=== PATIENT | male | born 1955 | race Caucasian/White ===

== ENCOUNTER 2019-07-07 16:35 | Inpatient (IN) | payer BC, SELFPAY ==
[2019-07-07] VITALS (8 sets, daily range): BP systolic 147–164; BP diastolic 79–91; PULSE 67–84; RESP 14–22; TEMP 36.6–37; O2SAT 94–100; BMI 29.7
--- NOTE | ~2019-07-07 | CT_ITS ---
EXAMINATION: CT brain wo con DATE: 07/07/2019 17:40 INDICATION: Seizure. TECHNIQUE: Computed tomography (CT) of the head was performed without intravenous contrast. The dose- length product was 681.00 mGy-cm. The mA was adjusted according to patient size. Iterative reconstruc tion technique was employed. COMPARISON: CT dated 02/18/2019 FINDINGS: Mild generalized atrophy. There are scattered mild periventricular and subcortical white ma tter changes, most likely related to small vessel ischemic disease (microangiopathy). No acute intrac ranial hemorrhage, infarction, mass or mass effect. No ventriculomegaly or midline shift. Basilar cis terns are patent. There is right ethmoid and frontal sinusitis. No depressed skull fractures. No midl ine shift. Mastoids are pneumatized. There is intracranial atherosclerosis. IMPRESSION: 1. No acute intracranial abnormality. 2: Moderate sinusitis. 3: Chronic age-related findings. Reviewed, dictated and finalized at location A. ATE BANKER
--- NOTE | ~2019-07-07 | MR_ITS ---
EXAMINATION: MR brain/brain stem wo/w con EXAM DATE: 07/08/2019 12:10 INDICATION: Onset seizure. TECHNIQUE: Magnetic resonance imaging (MRI) of the brain/brain stem obtained without contrast. Sagit je T1, axial diffusion, gradient echo (T2*), T1, T2, FLAIR sequences obtained. Patient was then inj ected with 20 cc intravenous Multihance contrast. Axial and coronal postcontrast T1 weighted sequence s obtained. There is no prior study for comparison. FINDINGS: There are no areas of restricted diffusion to suggest acute infarction. There is no acute hemorrhage seen on the T2*, a hemosiderin sensitive sequence. No intraparenchymal brain mass lesion. There is mild periventricular and subcortical T2/FLAIR signal hyperintensity, nonspecific but probab ly related to small vessel ischemic disease (microangiopathy). There are no extra-axial collection s. Flow voids are seen in the cerebral arteries on the T2-weighted sequences consistent with their e xpected patency. The orbits are unremarkable. Soft tissue is unremarkable. Completely opacified rig ht frontal and ethmoid sinuses. There are no areas of abnormal enhancement on the post contrast image s. IMPRESSION: 1. No acute intracranial findings. 2. Chronic age related findings. 3. Completely opacified right frontal and ethmoid sinuses Reviewed, dictated and finalized at location B. TRICAL APPLIANCE MECHANIC
--- NOTE | ~2019-07-07 | XR_ITS ---
EXAMINATION: XR chest 1V portable 07/07/2019 17:38 INDICATION: Seizure. Possible CVA. PROCEDURE: AP portable chest COMPARISON: Comparison to multiple prior studies sequentially, with oldest reviewed study dated 12/2018. FINDINGS: The lungs are clear. The cardiomediastinal silhouette is within normal limits. There are no pleural effusions. There is no pneumothorax suspected. IMPRESSION: 1: NO ACUTE CARDIOPULMONARY DISEASE. Reviewed, dictated and finalized at location A. COORDINATOR
--- NOTE | 2019-07-07 16:56 | ED.GENADULT ---
HPI - General Adult General Chief complaint: Suspected CVA Stated complaint: ?CODE STROKE Time Seen by Provider: 07/07/19 16:59 Source: family Mode of arrival: EMS Limitations: no limitations (Hx was given by pt's ) History of Present Illness HPI narrative: The pt is a 63 y/o male who presents to the ED, via EMS, with c/o recent seizure-like activity and AMS that occurred this afternoon. The pt's states that the pt has not been feeling well for the last couple of days. Yesterday, the pt had CP which was relieved with 2 tablets of NTG. Today, the pt laid down around 14:00 because he was not feeling well again and the notes that he seemed odd and spacey at this time and that his last known nml mental status was at 10:00 this morning. After his nap, the pt still felt ill and decided he was going to come to the ED. He was sitting on the side of the bed to change his shirt before leaving and seemed slow. The pt suddenly fell back on the bed and began to have seizure like activity. The states that the pt began twitching and that his eyes and head were rolled back. She is a retired nurse and described the event as a tonic clonic seizure. The seizure lasted for a few minutes, but the pt was unresponsive for about 15 minutes after that until EMS arrived. Per pt's , the pt is still not back to his nml mental status in the ED bed. The reports syncope, chills, and diarrhea for the last 3 days, but denies sneezing, rhinorrhea, fever, cough, vomiting, nausea, poor appetite, or ABD pain. 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 The pt had a fall last November and developed a subdural hematoma. He has been on ASA since January. The pt is full code and his infrastructure manager is at [place]. His states that he has never seized before. complaint: Seizure Onset (ago): hour(s) (this afternoon) Quality: other (tonic clonic) Associated symptoms: other (syncope, chills, diarrhea) Related Data Home Medications Medication Instructions Recorded Confirmed Levemir FlexTouch U-100 Insuln 40 unit SUBCUT BID 07/07/19 07/07/19 amlodipine 10 mg PO DAILY 07/07/19 07/07/19 duloxetine 90 mg PO DAILY 07/07/19 07/07/19 lorazepam 1 mg PO BID PRN 07/07/19 07/07/19 metoprolol tartrate 50 mg PO Q12H 07/07/19 07/07/19 oxycodone 20 mg PO Q4H PRN 07/07/19 07/07/19 pravastatin 80 mg PO DAILY 07/07/19 07/07/19 gabapentin 800 mg PO TID 07/08/19 07/08/19 insulin aspart U-100 [Novolog 1 sliding scale dose SUBCUT 07/08/19 07/08/19 U-100 Insulin aspart] USEASDIRECTD Allergies Allergy/AdvReac Type Severity Reaction Status Date / Time Sulfa (Sulfonamide Allergy Intermediate RASH Verified 07/13/19 05:03 Antibiotics) tramadol Allergy Intermediate INCREASED Verified 07/13/19 05:03 HEART BEAT prochlorperazine Allergy Unknown MENTAL Verified 07/13/19 05:03 STATUS CHANGES verapamil Allergy Unknown DYSTONIC Verified 07/13/19 05:03 REACTION metoclopramide [From Reglan] Allergy Other Verified 07/13/19 05:03 promethazine [From Phenergan] Allergy Other Verified 07/13/19 05:03 rosuvastatin AdvReac Intermediate ACHY, Verified 07/13/19 05:03 FATIGUE Review of Systems Review of Systems: All systems reviewed & are unremarkable except as noted in HPI and below Constitutional: Constitutional: Reports chills, Denies fever(s) and Denies poor appetite Eyes: Eyes: Denies other (sneezing, rhinorrhea) Respiratory: Respiratory: Denies cough Gastrointestinal: Gastrointestinal: Denies abdominal pain, Reports diarrhea, Denies nausea and Denies vomiting Neurologic: Reports syncope and Reports seizure-like activity [facility] Social History Social History Social History: Code status: Full code per EMR Primary care physician: Dr. Nithin Craig Smoking status: Never smoker T
--- NOTE | 2019-07-07 17:25 | ECG_ITS ---
Measurements Intervals [place] Rate: 87 P: 159 GA: 282 QRS: 31 QRSD: 126 T: 65 QT: 417 QTc: 502 Interpretive Statements SINUS RHYTHM WITH FIRST DEGREE AV BLOCK INTRAVENTRICULAR CONDUCTION DELAY CANNOT RULE OUT SEPTAL INFARCT, AGE INDETERMINATE NONSPECIFIC ST & T-WAVE ABNORMALITY- LATERAL LEADS ABNORMAL ECG Electronically Signed On 07-07-2019 19:43:38 FACTORY MACHINE COMPUTER OPERATOR by Baljeet Borja D.O.
[2019-07-07] MEDS: ONDANSETRON INJ 4 MG/2 ML VIAL IV PUSH ×2 (17:35→18:23)
[2019-07-07] MEDS: SODIUM CHLORIDE 0.9% IV 1,000 ML 999 ML IV CONT (17:36)
[2019-07-07] MEDS: levETIRAcetam 1000MG/NACL100ML 1,000 MG/100 ML BAG 400 MG IVPB (17:38)
[2019-07-07 17:45] LABS: Basophils Absolute Auto 0.1 K/mm3 (0.0-0.1); Basophils Percent Auto 0.6 % (0.2-1.2); Eosinophils Absolute Auto 0.1 K/mm3 (0-0.3); Eosinophils Percent Auto 0.5 % (0-4.4); Hemoglobin 13.2 g/dL (14.0-18.0); Immature Granulocyte Absolute 0.03 K/mm3 (0.00-0.031); Immature Granulocyte Percent A 0.3 % (0-0.5); Lymphocytes Absolute Auto 1.68 K/mm3 (0.9-3.2); Lymphocytes Percent Auto 15.6 % (18.3-44.2); Mean Corpuscular HGB Conc 32.2 g/dl (32-36); Mean Corpuscular Hemoglobin 25.2 pg (26-34); Mean Corpuscular Volume 78.4 fl (80-100); Monocytes Absolute Auto 0.5 K/mm3 (0.1-0.6); Monocytes Percent Auto 4.7 % (2.6-8.5); Neutrophils Absolute Auto 8.5 K/mm3 (1.3-6.7); Neutrophils Percent Auto 78.3 % (45.5-73.1); Platelet Count Result 377 k/mm3 (150-375); Red Blood Count 5.23 M/mm3 (4.6-6.20); Red Cell Distribution Width 16.8 % (11.5-14.5); White Blood Count 10.8 K/mm3 (4.5-10.0)
[2019-07-07 17:57] LABS: Albumin Level 4.5 g/dL (3.5-5.1); Alkaline Phosphatase 177 U/L (38-126); Aspartate Amino Transferase 24 U/L (17-59); Bilirubin,Total 0.4 mg/dL (0.2-1.3); Blood Urea Nitrogen 13 mg/dL (9-20); Calcium 9.6 mg/dL (8.4-10.2); Carbon Dioxide 18 mmol/L (22-30); Chloride 102 mmol/L (98-107); Estimated CRCL calculation 74 ml/min; Estimated Glomerular Filt Rate 56; Glucose 342 mg/dL (75-110); INR 1.1; Potassium 3.2 mmol/L (3.4-5.0); Prothrombin Time 13.9 Seconds (11.1-14.7); Sodium 141 mmol/L (137-145)
[2019-07-07 17:58] LABS: Partial Thromboplastin Time 26.9 SECONDS (22.3-36.8)
[2019-07-07 18:04] LABS: Alanine Aminotransferase 24 U/L (4-50)
[2019-07-07 18:07] LABS: Troponin I < 0.012 ng/mL (0.000-0.034)
[2019-07-07] MEDS: HYDROMORPHONE HCL 1 MG/ML INJ 0.5 MG IV PUSH ×2 (18:23→19:59)
[2019-07-07] MEDS: POTASSIUM CHLORIDE 20 MEQ PACKET (FOR LIQUID) 40 MEQ PO (19:14)
--- NOTE | 2019-07-07 19:29 | PC.NURSE ---
PT CAME FROM EMS WITH [address] BOTH ARE INTACT WITH NO COMPLICATIONS. BOTH WERE FLUSHED WITH 10CCNS. ONE 18G IN LFA AND ONE 18G IN RFA
--- NOTE | 2019-07-07 20:31 | ADMGEN ---
This patient, Mark Anthony Westfall Jr., was admitted to Medical Room 244-. Patient/family oriented to hospital policies and general routines including ID bracelet, bed and alarms, visiting hours, pain management, procedures, bathroom and other care routines, personal items, smoking policy, room service/diet, and visiting hours. Valuables list has been completed. Information on how to activate the Rapid Response Team has been discussed. Patient/Family are encouraged to report perceived risks to care and to ask questions if they do not understand what they are told or what they should do.
[2019-07-07] MEDS: SODIUM CHLORIDE 0.9% IV 1,000 ML 125 ML IV CONT (21:20)
[2019-07-07 22:01] LABS: Glucose Point of Care 265 (65-105)
[2019-07-08] VITALS (7 sets, daily range): BP systolic 111–153; BP diastolic 55–83; PULSE 58–103; RESP 18–20; TEMP 36.7–37.4; O2SAT 95–100
[2019-07-08] MEDS: METOPROLOL TARTRATE 50 MG TAB PO ×2 (01:53→08:53)
[2019-07-08] MEDS: HYDROMORPHONE HCL 1 MG/ML INJ IV PUSH (03:47)
[2019-07-08] MEDS: SODIUM CHLORIDE 0.9% IV 1,000 ML 125 ML IV CONT (04:30)
--- NOTE | 2019-07-08 05:01 | PM.IMHP ---
H&P: HPI History of Present Illness Chief complaint: seizure Narrative: Date and time of patient contact: 07/08/2019 at 2:55 a.m. Mark Anthony Westfall Jr. is a 63 year old male with a past medical history of migraines, chronic pain syndrome, CVA x3, diabetes on insulin therapy, and prior subdural hematoma who presented to the ER after having a witnessed seizure. The patient reports to me that he had not been feeling good for couple of days. He was just feeling ?odd?. Around 1600 his helped him back to bed. He had what appeared to be tonic-clonic seizure activity. His shaking of his upper and lower extremities and not responding. Seizure lasted about 2 minutes. When EMS arrived at the scene the patient's glucose was 296. The patient's is in ICU nurse. The patient has never had seizures before but was on Keppra last year following a subdural hematoma. The patient had never had a seizure before. A code stroke was called in the field in the patient was taken directly to CT scanner. The patient had evidently had 3 days of diarrhea. He did not have any vomiting. He has not had any fevers or chills per his report. He reports a migraine that is a 7/10 in intensity at the time of my evaluation. However, the patient's TV volume was loud. The patient was also noted to be playing on his phone when I arrived to the room. He reports that his migraines usually start on the right and move over to the left side of his forehead. He states that his home oxycodone 20 mg every 4 hours usually takes care of the pain. However when it does not he needs to come in for the Dilaudid. The patient did have some difficulty with word finding thrill my interview but was otherwise a fairly reasonable historian. However he was easily distracted. On arrival to the ER the patient would respond to questions with episodes of confusion. He would have some echolalia with repeating his name. He does not remember the episodes immediately prior to his seizure or the time following his seizure. She does not remember anything until he was rolling into the ER. The patient is noted to have some scratches and abrasions to the right side of his face in his right forehead. He reports that the abrasions on the right side of his face have been there for months. He does not know where the abrasion on his forehead was a result of contact with his dog. He also has an abrasion to the right knee with evidence of scabbing. Review of Systems Review of Systems: Narrative: Except as documented in the HPI, all other systems were reviewed and are negative. [facility] Past Medical History Medical History (Updated 07/08/19 @ 05:25 by Mehnaz Cotter DO) Chronic kidney disease, stage 3 With baseline creatinine between 1.2 and 1.5 Coronary artery disease 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 as well as short-term memory loss Depression Diabetes mellitus type 2, insulin dependent Chronically uncontrolled with a hemoglobin A1c of 12.5 in September 2018 Diastolic dysfunction August 2018 with moderate concentric left ventricular hypertrophy and mild by atrial enlargement Hyperlipidemia Hypertension Obstructive sleep apnea Intolerant to CPAP therapy Peripheral neuropathy 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
[2019-07-08 06:05] LABS: Blood Urea Nitrogen 13 mg/dL (9-20); Calcium 8.4 mg/dL (8.4-10.2); Carbon Dioxide 24 mmol/L (22-30); Chloride 105 mmol/L (98-107); Estimated CRCL calculation 71 ml/min; Estimated Glomerular Filt Rate > 60; Glucose 215 mg/dL (75-110); Potassium 3.6 mmol/L (3.4-5.0); Sodium 137 mmol/L (137-145)
--- NOTE | 2019-07-08 07:30 | NEURO_ITS ---
TEST: ELECTROENCEPHALOGRAM DIAGNOSIS: NEW ONSET SEIZURE PATIENT NUMBER: [id number] EEG NUMBER: [id number] RECORDING DATE: 07/08/19 CLINICAL HISTORY: Patient reports he lost consciousness yesterday morning. Does not remember much of the episode. Had a similar episode about 5 years ago. CONDITION OF RECORDING: Awake, drowsy and sleep EEG DESCRIPTION: Basic resting occipital frequency consists of small amount of poorly organized low voltage 8-9hz alpha mixed with low voltage 15-21hz beta. During drowsiness low voltage beta activity is seen diffusely mixed with waxing and waning posterior alpha rhythms and intermittent 6-7hz theta activity. Bilateral symmetrical sleep activity is seen during sleep. Multiple muscle and movement artifacts are noted. Hyperventilation and photic stimulation were not done. Nonparoxysmal. Nonfocal. Nonlateralizing. IMPRESSION: No significant abnormalities noted. MTDD
[2019-07-08] MEDS: levETIRAcetam 500 MG TABLET PO (08:52)
[2019-07-08] MEDS: POTASSIUM CHLORIDE 20 MEQ TABLET 40 MEQ PO (08:52)
[2019-07-08] MEDS: AMLODIPINE BESYLATE 5 MG TABLET 10 MG PO (08:52)
[2019-07-08] MEDS: DULOXETINE HCL 30 MG CAPSULE.DR 90 MG PO (08:52)
[2019-07-08] MEDS: PRAVASTATIN SODIUM 20 MG TABLET 80 MG PO (08:53)
[2019-07-08] MEDS: INSULIN DETEMIR 100 UNITS/ML 40 UNITS SUB-Q (09:24)
[2019-07-08 09:33] LABS: Glucose Point of Care 190 (65-105)
--- NOTE | 2019-07-08 11:47 | CONS_ITS ---
DATE OF CONSULTATION: 07/07/2019 HISTORY OF PRESENT ILLNESS: A 63-year-old right-handed male has been admitted to the hospital through the emergency room for the complaint of weakness and seizure. He had not been feeling good for the last couple of days. Around 1600, his has been back at the bed, then she saw him having the tonic-clonic seizure-like activity, shaking upper and lower extremities, and not responding. The whole episode lasted for 2 minutes. When the EMS arrived to the scene, his blood sugar was 296. The patient has never had seizure, but was on Keppra for the last year following a subdural hematoma. He was directly taken to the CT scanner. He did give the history of having had the diarrhea for the last several days without any vomiting. He was also complaining of headache 12/16. He is known to have migraine headaches. The patient did have some difficulty in word finding initially. On arrival in the emergency room, he was able to respond to the questions though he was intermittently confused. PAST MEDICAL HISTORY: The patient has past history of chronic kidney disease, stage 3, coronary artery disease, cerebrovascular accident resulting in the right-sided weakness, mild expressive aphasia, diabetes mellitus, depression, diastolic dysfunction, hyperlipidemia, hypertension, obstructive sleep apnea, peripheral neuropathy, spinal stenosis, and supraventricular tachycardia. PAST SURGICAL HISTORY: The patient has undergone surgery for the cardiac radiofrequency ablation, coronary stenting, colonoscopy, esophagogastroduodenoscopy with documentation of the reflux esophagitis and gastritis, laparoscopy cholecystectomy, ACL repair, sinus surgery, total bilateral knee replacement and medial collateral ligament replacement as well. SOCIAL HISTORY: He was never a smoker. MEDICATIONS: At the time of admission to the hospital, he was takin. Amlodipine 10 mg daily. 2. Duloxetine 90 mg daily. 3. Insulin 40 units subcu b.i.d. 4. Lorazepam 1 mg p.o. b.i.d. p.r.n. 5. Metoprolol 50 mg q.12h. 6. Oxycodone 20 mg q.4 hours p.r.n. 7. Pravastatin 80 mg daily. ALLERGIES: HE IS ALLERGIC TO METOCLOPRAMIDE, PROCHLORPERAZINE, PROMETHAZINE, AND SULFA. PHYSICAL EXAMINATION: VITAL SIGNS: At the time of admission, his vital signs were stable with temp of 97.8, pulse 84, respiration 20, blood pressure 157/80. GENERAL: Today, he is awake, alert, cooperative, in no obvious acute distress. HEENT: Head normocephalic with no cranial bruit. Ear, nose, throat examination normal. NECK: Supple with no cervical bruit. No thyromegaly. No lymphadenopathy. HEART: Regular with no murmur. LUNGS: Clear to auscultation. ABDOMEN: Soft with no organomegaly. NEUROLOGICAL: He is awake, alert, oriented x3. Pupils round, regular. Xavier of vision full. Extraocular movements full. Face symmetrical. Tongue midline. Motor examination revealed him to have no drift of one side or other side. Tone normal. Reflexes symmetrical. Plantars downgoing. There is no evidence of gross cerebellar deficit. Evaluation up until now includes negative chest x-ray. Negative CT scan of the head. EKG with sinus rhythm with first-degree AV block and interventricular conduction delay. The patient has been started on his medication including levetiracetam 500 mg q.12 hours. Routine EEG will be obtained and further recommendations will be made accordingly. Thank you very much for letting me evaluate this patient. CLARA AVITIA M.D. FREE LANCE ARTIST FREE LANCE ARTIST D I MT: Veda
[2019-07-08 12:48] LABS: Glucose Point of Care 221 (65-105)
[2019-07-08] MEDS: INSULIN ASPART (*BKC) 100 UNITS/ML SUB-Q (12:53)
--- NOTE | 2019-07-08 13:18 | PM.DS ---
DS: Diagnosis Admitting Diagnosis Admitting Diagnosis: Unspecified convulsions Discharge Diagnosis (1) Seizure: Code(s): R56.9 - Unspecified convulsions Status: Acute Assessment and Plan: Likely as a complication of the patient's multiple prior CVAs. Patient received 1 gram of Keppra IV in the ER. 500 mg Keppra Q12 since. MRI of brain showed no acute intracranial findings. Neurology has been consulted and appreciate recommendations of Keppra 500 mg Q12 and no driving for at least 6-8 weeks Neruology has okayed patient for discharge on their end Follow up with Neurology in 6 weeks (2) Acute hypokalemia: Code(s): E87.6 - Hypokalemia Status: Acute Assessment and Plan: The patient received 40 mEq potassium chloride in the ER. K this morning is 3.6 Further follow up per PCP (3) Diabetes mellitus with hyperglycemia: Qualifiers: Diabetes mellitus terminal worker insulin use: with residential use Diabetes mellitus type: type 2 Qualified Code(s): E11.65 - Type 2 diabetes mellitus with hyperglycemia; Z79.4 - [facility] (current) use of insulin Code(s): E11.65 - Type 2 diabetes mellitus with hyperglycemia Status: Acute Assessment and Plan: Patient has chronically uncontrolled diabetes. Glucoses in the ER were 342. Repeat Accu-Chek was 265. BGL 100s-200s today. Will continue the patient's home Levemir Follow up with PCP for further management (4) Headache, migraine: Qualifiers: Intractability: not intractable Migraine type: unspecified Status migrainosus presence: without status migrainosus Qualified Code(s): G43.909 - Migraine, unspecified, not intractable, without status migrainosus Code(s): G43.909 - Migraine, unspecified, not intractable, without status migrainosus Status: Acute Assessment and Plan: Patient's migraine has subsided since. Will continue patient's home medications at discharge Follow up with PCP (5) Medication nonadherence due to psychosocial problem: Code(s): Z91.14 - Patient's other noncompliance with medication regimen Status: Acute Assessment and Plan: Prior to discharge, patient's daughter and son discussed in length with me their concern with patient obtaining gabapentin from providers other than his PCP and seemingly taking outside the recommended prescription and/or hiding the medication for later use. Discussed with patient whom he denied. Daughter concerned as they have allegedly found him wandering or lost in his vehicle. I discussed with his PCP, Dr. Craig, who also expressed concern over the same issue of alleged medication non-compliance and was already planning on discussing further at his next follow up appointment. Discussed with Dr. Milton, who recommended patient have his medication given to him by a family member so he does not have access. I had recommended this to his daughter, as well as, taking the keys from his vehicle or moving his vehicle to a new location where he cannot access it until this is discussed further with Dr. Milton and his PCP. Per Dr. Milton recommendations, he was to continue his Keppra and gabapenting and other medications, only as prescribed. At the end of the visit, daughter and patient had a verbal argument, resulting in daughter walking out of room refusing to take patient home. Per nursing, patient's had picked him up to return home. Of note, Gabapentin medication was not on patient's home medication list at admission; this has been added to his medication list prior to discharge. DS: Summary Hospital Course Reason for hospitalization: Seizure like activity Hospital Course: Patient is a 63 yo M with history of migraines, chronic pain syndrome, CVA x3, diabetes on insulin therapy, and prior subdural anton
== END 2019-07-08 15:55 | disposition home or self-care (01) | DRG 57 ==
LOC: ANHED 18:41 → ANH2MED 07-08 05:01
PROVIDERS: Physician Assistant; Admitting Provider Family Medicine; Emergency Provider Emergency Medicine; PCP Family Medicine Adolescent Medicine; Visit Provider Family Medicine
DX: I69.398 Other sequelae of cerebral infarction (principal); I69.351 Hemiplegia and hemiparesis following cerebral infarction affecting right dominant side; R56.9 Unspecified convulsions; G43.909 Migraine, unspecified, not intractable, without status migrainosus; G89.4 Chronic pain syndrome; Z79.4 Long term (current) use of insulin; N18.3 Chronic kidney disease, stage 3 (moderate); I12.9 Hypertensive chronic kidney disease with stage 1 through stage 4 chronic kidney disease, or unspecified chronic kidney disease; I25.10 Atherosclerotic heart disease of native coronary artery without angina pectoris; I69.320 Aphasia following cerebral infarction; I69.311 Memory deficit following cerebral infarction; F32.9 Major depressive disorder, single episode, unspecified; E78.5 Hyperlipidemia, unspecified; G47.33 Obstructive sleep apnea (adult) (pediatric); E11.42 Type 2 diabetes mellitus with diabetic polyneuropathy; Z79.891 Long term (current) use of opiate analgesic; M48.00 Spinal stenosis, site unspecified; Z86.010 Personal history of colon polyps; Z96.653 Presence of artificial knee joint, bilateral; Z90.49 Acquired absence of other specified parts of digestive tract; Z95.5 Presence of coronary angioplasty implant and graft; Z91.14 Patient's other noncompliance with medication regimen; E87.6 Hypokalemia; E11.65 Type 2 diabetes mellitus with hyperglycemia
CPT/HCPCS: 36415; 70450; 70553; 71045; 80048; 80053; 84484; 85025; 85610; 85730; 93005; 95816; 96361; 96374; 96375; 96376; 97165; 99285; A9270; A9577; J0131; J1170; J1815; J1953; J2405; J7030

== ENCOUNTER 2019-07-11 14:14 | Emergency (ER) | payer BC, SELFPAY ==
[2019-07-11 14:35] VITALS: BP 152/99; PULSE 68; O2SAT 100
--- NOTE | 2019-07-11 14:51 | ED.BACK ---
HPI - Back Pain/Injury General Chief Complaint: Back Pain/Injury Stated Complaint: back pain Time Seen by Provider: 07/11/19 14:44 Source: patient Mode of arrival: ambulatory Limitations: no limitations History of Present Illness HPI Narrative: A 63 y/o male presents to the ED with c/o chronic back pain for the past 10+ years. Pt states that he was seen at [facility] yesterday and his left his pain medication at the hospital. He notes that he lost Oxycodone 20mg. Pt adds that he has been prescribed Oxycodone for [address] Matthews is his PCP. He denies any fever, chills, CP, SOB, N/V, and ABD pain. MD elicited complaint: back pain (Chronic) Pertinent past history: prior back pain and other (Medication noncompliance) Onset (ago): year(s) (10+) Timing: constant Severity: similar to previous episodes Context: other (Medication noncompliance) Associated symptoms: denies other symptoms Related Data Allergies Allergy/AdvReac Type Severity Reaction Status Date / Time Sulfa (Sulfonamide Allergy Intermediate RASH Verified 07/11/19 14:23 Antibiotics) tramadol Allergy Intermediate INCREASED Verified 07/11/19 14:23 HEART BEAT prochlorperazine Allergy Unknown MENTAL Verified 07/11/19 14:23 STATUS CHANGES verapamil Allergy Unknown DYSTONIC Verified 07/11/19 14:23 REACTION rosuvastatin AdvReac Intermediate ACHY, Verified 07/11/19 14:23 FATIGUE METOCLOPRAMIDE HCL Allergy Unknown MENTAL Uncoded 07/11/19 14:23 STATUES CHANGES Review of Systems Review of Systems: All systems reviewed & are unremarkable except as noted in HPI and below Constitutional: Constitutional: Denies chills and Denies fever(s) Cardiovascular: Cardiovascular: Denies chest pain Respiratory: Respiratory: Denies dyspnea Gastrointestinal: Gastrointestinal: Denies abdominal pain, Denies nausea and Denies vomiting Musculoskeletal: Musculoskeletal: Reports back pain (Chronic) [facility] Past Medical History Medical History (Updated 07/11/19 @ 15:21 by Francesca Correia MD) Anemia Anxiety Arthritis Asthma Back fracture Bulging discs CAD (coronary artery disease) CHF (congestive heart failure) Chronic back pain CVA (cerebral vascular accident) Dementia Depression Diabetes GERD (gastroesophageal reflux disease) Heart attack History of angina History of blood transfusion HTN (hypertension) Hyperlipidemia Migraine Peripheral neuropathy Pneumonia PVD (peripheral vascular disease) Renal disease Seasonal allergies Shingles Sleep apnea Spinal stenosis Staph infection Surgical History Surgical History (Updated 07/11/19 @ 15:01 by Keisha Vann) H/O excision of ganglion cyst H/O nasal polypectomy H/O prior ablation treatment History of arthroscopic knee surgery Bilateral History of cardiac catheterization History of coronary artery stent placement History of tonsillectomy Social History Social History (Updated 07/11/19 @ 15:16 by Keisha Vann) Smoking status: Former smoker Tobacco type: cigars Second hand tobacco smoke exposure: Yes Gender identity (if verbalized by the patient): Male Exam Narrative: Exam Narrative: General appearance: Well-developed, well-nourished, no family member at the bedside patient was able to go to the bathroom and to come back to the room without commissary assistant. Skin: Normal color Head: Normocephalic, nontraumatic Eyes: Clear conjunctiva ENT: Oropharynx normal, ears normal, nose normal Neck: Supple, nontender Chest and respiratory: Airway patent, no respiratory distress, no accessory muscle use Heart: Regular rate/rhythm Abdomen: Soft, nontender, no organomegaly, quiet bowel sounds Vascular: Normal peripheral pulses, normal capillary refill. Musculoskeletal: Limited range of motion across lumbar area, diffuse mild tenderness. Neurologic: Alert and oriented ?3, STRADDLE BUGGY OPERATOR is normal as tested, no gross motor deficit
[2019-07-11] MEDS: HYDROMORPHONE HCL 1 MG/ML INJ 2 MG IM (15:22)
[2019-07-11] MEDS: ONDANSETRON HCL ODT 4 MG TABLET PO (15:22)
[2019-07-11] MEDS: HYDROMORPHONE HCL 1 MG/ML INJ IM (15:57)
== END 2019-07-11 16:02 | disposition home or self-care (01) ==
PROVIDERS: Emergency Provider Emergency Medicine; PCP Family Medicine Adolescent Medicine
DX: M54.5 Low back pain (principal); G89.29 Other chronic pain; M19.90 Unspecified osteoarthritis, unspecified site; J45.909 Unspecified asthma, uncomplicated; I25.10 Atherosclerotic heart disease of native coronary artery without angina pectoris; Z86.73 Personal history of transient ischemic attack (TIA), and cerebral infarction without residual deficits; F03.90 Unspecified dementia, unspecified severity, without behavioral disturbance, psychotic disturbance, mood disturbance, and anxiety; E11.42 Type 2 diabetes mellitus with diabetic polyneuropathy; K21.9 Gastro-esophageal reflux disease without esophagitis; I10 Essential (primary) hypertension; E78.5 Hyperlipidemia, unspecified; E11.51 Type 2 diabetes mellitus with diabetic peripheral angiopathy without gangrene; G47.30 Sleep apnea, unspecified; N28.9 Disorder of kidney and ureter, unspecified; Z95.5 Presence of coronary angioplasty implant and graft; Z87.891 Personal history of nicotine dependence
CPT/HCPCS: 96372; 99284; A9270; J1170

== ENCOUNTER 2019-07-13 04:47 | Emergency (ER) | payer BC, SELFPAY ==
[2019-07-13 04:56] VITALS: PULSE 100; RESP 18; TEMP 36.4; O2SAT 100
--- NOTE | 2019-07-13 05:12 | ED.BACK ---
HPI - Back Pain/Injury General Chief Complaint: Back Pain/Injury Stated Complaint: back pain Time Seen by Provider: 07/13/19 05:06 History of Present Illness HPI Narrative: He reports chronic pain in his lower back. Worse because he lost his pain medications. No new trauma. I personally have seen this patient a number of times. He has chronic pain and drug seeking behavior. He has had multiple prior visits after taking too much of his pain medications. Related Data Home Medications Medication Instructions Recorded Confirmed Levemir FlexTouch U-100 Insuln 40 unit SUBCUT BID 07/07/19 07/07/19 amlodipine 10 mg PO DAILY 07/07/19 07/07/19 duloxetine 90 mg PO DAILY 07/07/19 07/07/19 lorazepam 1 mg PO BID PRN 07/07/19 07/07/19 metoprolol tartrate 50 mg PO Q12H 07/07/19 07/07/19 oxycodone 20 mg PO Q4H PRN 07/07/19 07/07/19 pravastatin 80 mg PO DAILY 07/07/19 07/07/19 gabapentin 800 mg PO TID 07/08/19 07/08/19 insulin aspart U-100 [Novolog 1 sliding scale dose SUBCUT 07/08/19 07/08/19 U-100 Insulin aspart] USEASDIRECTD Allergies Allergy/AdvReac Type Severity Reaction Status Date / Time Sulfa (Sulfonamide Allergy Intermediate RASH Verified 07/13/19 05:03 Antibiotics) tramadol Allergy Intermediate INCREASED Verified 07/13/19 05:03 HEART BEAT prochlorperazine Allergy Unknown MENTAL Verified 07/13/19 05:03 STATUS CHANGES verapamil Allergy Unknown DYSTONIC Verified 07/13/19 05:03 REACTION metoclopramide [From Reglan] Allergy Other Verified 07/13/19 05:03 promethazine [From Phenergan] Allergy Other Verified 07/13/19 05:03 rosuvastatin AdvReac Intermediate ACHY, Verified 07/13/19 05:03 FATIGUE Review of Systems Review of Systems: All systems reviewed & are unremarkable except as noted in HPI and below ROS unobtainable: other (limited due to cooperation) Constitutional: Constitutional: Denies fever(s) Cardiovascular: Cardiovascular: Denies chest pain Gastrointestinal: Gastrointestinal: Denies vomiting Musculoskeletal: Musculoskeletal: Reports back pain Neurologic: Reports weakness PMFSH Past Medical History Medical History Anemia Anxiety Arthritis Asthma Back fracture Bulging discs CAD (coronary artery disease) CHF (congestive heart failure) Chronic back pain Chronic kidney disease, stage 3 With baseline creatinine between 1.2 and 1.5 Coronary artery disease CVA (cerebral vascular accident) 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rtension Migraine Obstructive sleep apnea Intolerant to CPAP therapy Peripheral neuropathy Peripheral neuropathy Pneumonia 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f left knee MRSA September 2018 Shingles Sleep apnea Spinal stenosis Spinal stenosis With history of herniated discs and stress fractures on chronic narcotic therapy Staph infection SVT (supraventricular tachycardia) With history of cardiac ablation in 2001 Surgical History Surgical History H/O cardiac radiofrequency ablation for SVT H/O excision of ganglion cyst H/O heart artery stent Placed in 2006 H/O nasal polypectomy H/O prior ablation treatment History of arthroscopic knee surgery Bilateral History of cardiac catheterization Hist
== END 2019-07-13 05:35 | disposition home or self-care (01) ==
LOC: ANHED 05:18
PROVIDERS: Emergency Provider Emergency Medicine
DX: M54.5 Low back pain (principal); D64.9 Anemia, unspecified; F41.9 Anxiety disorder, unspecified; M19.90 Unspecified osteoarthritis, unspecified site; J45.909 Unspecified asthma, uncomplicated; I25.10 Atherosclerotic heart disease of native coronary artery without angina pectoris; I50.9 Heart failure, unspecified; I13.10 Hypertensive heart and chronic kidney disease without heart failure, with stage 1 through stage 4 chronic kidney disease, or unspecified chronic kidney disease; N18.3 Chronic kidney disease, stage 3 (moderate); E11.22 Type 2 diabetes mellitus with diabetic chronic kidney disease; Z79.4 Long term (current) use of insulin; F32.9 Major depressive disorder, single episode, unspecified; K21.9 Gastro-esophageal reflux disease without esophagitis; G47.30 Sleep apnea, unspecified; E11.42 Type 2 diabetes mellitus with diabetic polyneuropathy
CPT/HCPCS: 99281

== ENCOUNTER 2019-08-14 08:06 | Inpatient (IN) | payer BC, SELFPAY ==
--- NOTE | ~2019-08-14 | CT_ITS ---
EXAMINATION: CT abdomen pelvis w con DATE: 08/14/2019 10:13 INDICATION: Abdomen pain. TECHNIQUE: Computed tomography (CT) of the abdomen and pelvis was performed with 100 cc Omnipaque 350 intravenous contrast. The dose-length product was 1056.16 mGy-cm. Automated exposure control and ite rative reconstruction technique were employed. COMPARISON: CT dated 10/31/2018 FINDINGS: Lung bases unremarkable. Heart size normal. No pleural or pericardial effusion. There is acute uncomplicated pancreatitis. Status post cholecystectomy. The liver, spleen, adrenal gl ands and kidneys are unremarkable. Bowel pattern is nonobstructive. No abnormal pelvic masses or flui d collections. Mild bladder wall thickening. Prominent prostate gland. No free air or free fluid. No significant vascular abnormality. Retroaortic left renal vein, normal variant. Advanced lumbar spondy losis. No acute osseous abnormality. IMPRESSION: 1. Acute uncomplicated pancreatitis. 2: Chronic bladder wall thickening, suspicious for cystitis. Reviewed, dictated and finalized at location A. R TRACER
--- NOTE | ~2019-08-14 | MR_ITS ---
EXAMINATION: MR abdomen wo con DATE: 08/16/2019 12:32 INDICATION: Acute pancreatitis. Abnormal liver function tests. TECHNIQUE: Magnetic resonance imaging (MRI) of the abdomen was performed without intravenous contrast . Sequences included coronal T2-weighted FS FSE, coronal and axial FS FIESTA, axial T2-weighted FSE, coronal LAVA-flex, axial STIR FSE, axial DWI, axial dual-echo T1-weighted FSPGR, and axial LAVA. COMPARISON: CT abdomen and pelvis 08/14/2019 FINDINGS: There is mild intrahepatic biliary duct dilatation, likely secondary to cholecystectomy. The common d uct is normal and measures 5 mm. There is fat stranding around the pancreas. There is a 5 mm cyst in the spleen. The adrenal glands and kidneys are normal. There are no dilated loops of bowel. There are no pathologically enlarged lymph nodes. There is no free intraperitoneal fluid. IMPRESSION: 1. Acute interstitial pancreatitis. Reviewed, dictated and finalized at location A.
--- NOTE | ~2019-08-14 | XR_ITS ---
EXAMINATION: XR chest 2V 08/14/2019 09:35 INDICATION: Chest pain PROCEDURE: AP and lateral views of the chest COMPARISON: 07/07/2019 FINDINGS: The lungs are clear. The cardiomediastinal silhouette is within normal limits. There are no pleural effusions. There is no pneumothorax suspected. IMPRESSION: 1: NO ACUTE CARDIOPULMONARY DISEASE. Reviewed, dictated and finalized at location A. ER MEAL
--- NOTE | 2019-08-14 08:20 | ECG_ITS ---
Measurements Intervals [place] Rate: 98 P: [place]: 0 QRS: -11 QRSD: 126 T: 79 QT: 375 QTc: 480 Interpretive Statements SINUS RHYTHM WITH FIRST DEGREE AV BLOCK BORDERLINE ST-T WAVE ABNORMALITY- LATERAL LEADS BASELINE ARTIFACT- I, II, AVR, AVL, AVF, V1-V2 ABNORMAL ECG Electronically Signed On 08-14-2019 8:44:24 MANAGER MEDIA RELATIONS by Baljeet Borja D.O.
[2019-08-14 08:24] VITALS: BP 196/105; PULSE 100; RESP 18; TEMP 36.8; O2SAT 100
[2019-08-14 08:35] LABS: Basophils Absolute Auto 0.1 K/mm3 (0.0-0.1); Basophils Percent Auto 0.5 % (0.2-1.2); Eosinophils Absolute Auto 0.2 K/mm3 (0-0.3); Hematocrit 40.2 % (42.0-52.0); Hemoglobin 12.9 g/dL (14.0-18.0); Immature Granulocyte Absolute 0.03 K/mm3 (0.00-0.031); Immature Granulocyte Percent A 0.3 % (0-0.5); Lymphocytes Percent Auto 16.2 % (18.3-44.2); Mean Corpuscular HGB Conc 32.1 g/dl (32-36); Mean Corpuscular Hemoglobin 25.9 pg (26-34); Mean Corpuscular Volume 80.6 fl (80-100); Monocytes Percent Auto 9.4 % (2.6-8.5); Neutrophils Absolute Auto 7.5 K/mm3 (1.3-6.7); Neutrophils Percent Auto 71.6 % (45.5-73.1); Platelet Count Result 405 k/mm3 (150-375); Red Blood Count 4.99 M/mm3 (4.6-6.20); Red Cell Distribution Width 15.8 % (11.5-14.5); White Blood Count 10.5 K/mm3 (4.5-10.0)
[2019-08-14 08:51] LABS: Blood Urea Nitrogen 20 mg/dL (9-20); Calcium 9.7 mg/dL (8.4-10.2); Carbon Dioxide 30 mmol/L (22-30); Chloride 97 mmol/L (98-107); Estimated CRCL calculation 66 ml/min; Estimated Glomerular Filt Rate 56; Glucose 416 mg/dL (75-110); INR 1.1; Prothrombin Time 14.2 Seconds (11.1-14.7); Sodium 136 mmol/L (137-145)
[2019-08-14 08:52] LABS: Partial Thromboplastin Time 38.3 SECONDS (22.3-36.8)
[2019-08-14 09:02] LABS: Troponin I < 0.012 ng/mL (0.000-0.034)
--- NOTE | 2019-08-14 09:03 | ED.ABDPAIN ---
HPI - Abdominal Pain General Chief Complaint: Abdominal Pain Stated Complaint: chest pain Time Seen by Provider: 08/14/19 08:58 Source: patient and RN notes reviewed Mode of arrival: ambulatory Limitations: no limitations History of Present Illness HPI narrative: Pt is a 63 y/o male who presents to the ED with c/o epigastric pain starting 2 days ago. He notes that his pain initially felt like indigestion, but states that his pain has persisted for the past 2 days. Pt describes his pain as an ache, and notes that his pain radiates into his LUQ and intermittently into his back. He currently rates his pain at 7/10. Pt also reports diarrhea, foul-smelling urine, and a recent cough, but denies any vomiting, fever, or other symptoms. He notes that he has had similar pain accompanying a previous episode of cholecystitis roughly 1 year ago. Pt states that he received a cholecystectomy at that time. He notes that he has been taking Acetaminophen for his pain. MD elicited complaint: abdominal pain Onset (ago): day(s) (2) Pain Consistency: constant Location: epigastric Pain scale (0-10): 7 Quality: aching Radiation: LUQ and back Associated symptoms: diarrhea and other (foul-smelling urine; cough) Treatments prior to arrival: other (Acetaminophen) Related Data Home Medications Medication Instructions Recorded Confirmed Levemir FlexTouch U-100 Insuln 40 unit SUBCUT BID 07/07/19 07/07/19 amlodipine 10 mg PO DAILY 07/07/19 07/07/19 duloxetine 90 mg PO DAILY 07/07/19 07/07/19 lorazepam 1 mg PO BID PRN 07/07/19 07/07/19 metoprolol tartrate 50 mg PO Q12H 07/07/19 07/07/19 oxycodone 20 mg PO Q4H PRN 07/07/19 07/07/19 gabapentin 800 mg PO TID 07/08/19 07/08/19 insulin aspart U-100 [Novolog 1 sliding scale dose SUBCUT 07/08/19 07/08/19 U-100 Insulin aspart] USEASDIRECTD morphine 60 mg PO BID PRN 08/14/19 oxycodone-acetaminophen 1 tablet PO Q6H PRN 08/14/19 Allergies Allergy/AdvReac Type Severity Reaction Status Date / Time Sulfa (Sulfonamide Allergy Intermediate RASH Verified 08/14/19 08:27 Antibiotics) tramadol Allergy Intermediate INCREASED Verified 08/14/19 08:27 HEART BEAT prochlorperazine Allergy Unknown MENTAL Verified 08/14/19 08:27 STATUS CHANGES verapamil Allergy Unknown DYSTONIC Verified 08/14/19 08:27 REACTION metoclopramide [From Reglan] Allergy Other Verified 08/14/19 08:27 promethazine [From Phenergan] Allergy Other Verified 08/14/19 08:27 rosuvastatin AdvReac Intermediate ACHY, Verified 08/14/19 08:27 FATIGUE Review of Systems Review of Systems: All systems reviewed & are unremarkable except as noted in HPI and below Constitutional: Constitutional: Denies chills, Denies fever(s), Denies headache(s) and Denies weakness Respiratory: Respiratory: Reports cough Gastrointestinal: Gastrointestinal: Reports abdominal pain (epigastric pain radiating into LUQ and back), Reports diarrhea and Denies vomiting Genitourinary: Genitourinary: Reports other (foul-smelling urine) [facility] Past Medical History Medical History Anemia Anxiety Arthritis Asthma Back fracture Bulging discs CAD (coronary artery disease) CHF (congestive heart failure) Chronic back pain Chronic kidney disease, stage 3 With baseline creatinine between 1.2 and 1.5 Coronary artery disease CVA (cerebral vascular accident) 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
[2019-08-14 09:45] LABS: Lipase 667 U/L (23-300)
[2019-08-14] MEDS: POTASSIUM CHLORIDE 20 MEQ TABLET 40 MEQ PO (10:20)
[2019-08-14] MEDS: INSULIN HUMAN REGULAR (*BKC) 100 UNITS/ML 10 UNITS IV PUSH (10:24)
[2019-08-14 11:15] LABS: Alanine Aminotransferase 56 U/L (4-50); Albumin Level 4.1 g/dL (3.5-5.1); Alkaline Phosphatase 174 U/L (38-126); Aspartate Amino Transferase 63 U/L (17-59); Bilirubin,Total 0.7 mg/dL (0.2-1.3)
[2019-08-14 11:39] LABS: Troponin I < 0.012 ng/mL (0.000-0.034)
[2019-08-14 12:29] LABS: Glucose Point of Care 201 (65-105)
[2019-08-14] MEDS: MORPHINE SULFATE 4 MG/ML INJ IV PUSH (13:37)
[2019-08-14 14:00] VITALS: BP 176/90; PULSE 86; RESP 18; TEMP 36.9; O2SAT 100
[2019-08-14 15:30] LABS: Troponin I < 0.012 ng/mL (0.000-0.034)
[2019-08-14 16:00] VITALS: BMI 25.1
--- NOTE | 2019-08-14 16:07 | ADMGEN ---
This patient, Mark Anthony Westfall Jr., was admitted to [facility] Room 309-01. Patient/family oriented to hospital policies and general routines including ID bracelet, bed and alarms, visiting hours, pain management, procedures, bathroom and other care routines, personal items, smoking policy, room service/diet, and visiting hours. Valuables list has been completed. Information on how to activate the Rapid Response Team has been discussed. Patient/Family are encouraged to report perceived risks to care and to ask questions if they do not understand what they are told or what they should do.
--- NOTE | 2019-08-14 16:18 | PM.IMHP ---
H&P: HPI History of Present Illness Chief complaint: pancreatitis Narrative: Mark Anthony Westfall Jr. is a 63 year old male with a past medical history chronic back pain with herniated disks, and chronically on pain medication,DM on insulin, CAD, CVAX3, hemotoma, patient patient was diagnosed with seizure, had a cholecystectomy in November of 2018, present at the with complaint epigastric pain 2 days nausea diarrhea denies any vomiting fever or chills though he felt cold, patient denies any chest pain palpitation dizziness patient had a CT scan of the abdomen showed patient has uncomplicated acute pancreatitis, currently patient pain is persisting feels a bit nauseated and no vomiting, plan is to the patient NPO gently hydrate the patient and provide the pain management Review of Systems Review of Systems: All systems reviewed & are unremarkable except as noted in HPI and below PMFSH Past Medical History Medical History Anemia Anxiety Arthritis Asthma Back fracture Bulging discs CAD (coronary artery disease) CHF (congestive heart failure) Chronic back pain Chronic kidney disease, stage 3 With baseline creatinine between 1.2 and 1.5 Coronary artery disease CVA (cerebral vascular accident) 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rtension Migraine Obstructive sleep apnea Intolerant to CPAP therapy Peripheral neuropathy Peripheral neuropathy Pneumonia 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f left knee MRSA September 2018 Shingles Sleep apnea Spinal stenosis Spinal stenosis With history of herniated discs and stress fractures on chronic narcotic therapy Staph infection SVT (supraventricular tachycardia) With history of cardiac ablation in 2001 Surgical History Surgical History H/O cardiac radiofrequency ablation for SVT H/O excision of ganglion cyst H/O heart artery stent Placed in 2006 H/O nasal polypectomy H/O prior ablation treatment History of arthroscopic knee surgery Bilateral History of cardiac catheterization History of cardiac catheterization 2014 complicated by prizmetal's angina History of colonoscopy with polypectomy 2016 demonstrating internal hemorrhoids, external hemorrhoids and transverse colon polyp status post polypectomy History of coronary artery stent placement History of esophagogastroduodenoscopy November 2016 demonstrating reflux esophagitis and gastritis History of laparoscopic cholecystectomy October 2018 History of repair of ACL History of sinus surgery Anterior ethmoid, right maxillary and frontal sinus surgery 2012 History of tonsillectomy History of total bilateral knee replacement Performed at the [facility] with multiple revisions to his right knee with his most recent left total knee arthroplasty performed by Dr. Diane in [facility] Status post repair of medial collateral ligament Family History Family History (Updated 08/14/19 @ 16:09 by Kevin Can RN) Mother Breast cancer Hypertension Dementia Sibling Asthma Brother Hypertension Father Dementia Lung cancer Hypertension Social History Social History Social History: Code status: Full code per E
[2019-08-14] MEDS: SODIUM CHLORIDE 0.9% IV 1,000 ML 125 ML IV CONT (16:26)
[2019-08-14] MEDS: HYDROMORPHONE HCL 1 MG/ML INJ IV PUSH ×3 (16:31→23:32)
[2019-08-14 16:32] LABS: Magnesium 1.8 mg/dL (1.6-2.3)
[2019-08-14 18:38] LABS: Glucose Point of Care 232 (65-105)
[2019-08-14] MEDS: INSULIN ASPART (*BKC) 100 UNITS/ML SUB-Q (19:45)
[2019-08-14] MEDS: levETIRAcetam 500MG/NACL 100ML 500 MG/100 ML BAG 400 MG IVPB (20:00)
[2019-08-14 20:15] VITALS: PULSE 86; RESP 18; O2SAT 100
[2019-08-14 21:00] VITALS: BP 190/105; PULSE 102; RESP 18; TEMP 37; O2SAT 100
[2019-08-14 23:31] VITALS: BP 198/96
[2019-08-15 00:35] LABS: Glucose Point of Care 200 (65-105)
[2019-08-15] MEDS: SODIUM CHLORIDE 0.9% IV 1,000 ML 125 ML IV CONT ×2 (00:54→11:50)
--- NOTE | 2019-08-15 01:41 | PC.NURSE ---
Daylight Savings Time For Daylight Savings Time Ending in the Fall - Clocks are moved back. For Daylight Savings Time Beginning in the Spring - Clocks are moved ahead. For [facility], the time of change occurs at 0200 hrs. Time is taken from the director internal communications. This entry on the patient's chart recognizes the change in time reflected during documentation. Example: 2 entries for vital signs may be charted for 0200 hrs.
[2019-08-15] MEDS: HYDROMORPHONE HCL 1 MG/ML INJ IV PUSH ×7 (04:33→23:31)
[2019-08-15 06:00] VITALS: BP 196/89; PULSE 90; RESP 18; TEMP 36.8; O2SAT 100
[2019-08-15 06:28] LABS: Hematocrit 38.1 % (42.0-52.0); Hemoglobin 12.3 g/dL (14.0-18.0); Mean Corpuscular HGB Conc 32.3 g/dl (32-36); Mean Corpuscular Hemoglobin 25.9 pg (26-34); Mean Corpuscular Volume 80.2 fl (80-100); Mean Platelet Volume 9.2 fl (7.4-10.4); Platelet Count Result 420 k/mm3 (150-375); Red Blood Count 4.75 M/mm3 (4.6-6.20); Red Cell Distribution Width 15.6 % (11.5-14.5); White Blood Count 10.7 K/mm3 (4.5-10.0)
[2019-08-15 06:44] LABS: Alanine Aminotransferase 44 U/L (4-50); Albumin Level 3.8 g/dL (3.5-5.1); Alkaline Phosphatase 157 U/L (38-126); Aspartate Amino Transferase 38 U/L (17-59); Bilirubin,Total 0.6 mg/dL (0.2-1.3); Blood Urea Nitrogen 15 mg/dL (9-20); Carbon Dioxide 25 mmol/L (22-30); Chloride 102 mmol/L (98-107); Estimated CRCL calculation 84 ml/min; Estimated Glomerular Filt Rate > 60; Glucose 235 mg/dL (75-110); Lipase 699 U/L (23-300); Potassium 3.7 mmol/L (3.4-5.0); Sodium 137 mmol/L (137-145)
[2019-08-15 06:47] LABS: Glucose Point of Care 224 (65-105)
--- NOTE | 2019-08-15 08:51 | PC.NURSE ---
Patient refuses bed alarm. Patient has been educated on safety and the risks of having bed alarm off. Patient has been instructed to call for assistance when he needs to get up.
[2019-08-15] MEDS: levETIRAcetam 500MG/NACL 100ML 500 MG/100 ML BAG 400 MG IVPB ×2 (09:13→20:24)
[2019-08-15 09:54] LABS: Glucose Point of Care 193 (65-105)
[2019-08-15 10:18] VITALS: O2SAT 97
--- NOTE | 2019-08-15 12:27 | WPDGICN ---
Assessment and Plan Assessment and plan (1) Acute pancreatitis: Qualifiers: Acute pancreatitis complication: unspecified Pancreatitis type: unspecified pancreatitis type Qualified Code(s): K85.90 - Acute pancreatitis without necrosis or infection, unspecified Code(s): K85.90 - Acute pancreatitis without necrosis or infection, unspecified Status: Acute Assessment and Plan: probably biliary related, also could be from diabetes. Will get MRCP to assess biliary tree and pancrease, ok to start CL diet and continue to monitor, supportive care, pain control with analgesia. (2) Diabetes mellitus with hyperglycemia: Qualifiers: Diabetes mellitus usp insulin use: with watermelon harvesting supervisor use Diabetes mellitus type: type 2 Qualified Code(s): E11.65 - Type 2 diabetes mellitus with hyperglycemia; Z79.4 - watermelon harvesting supervisor (current) use of insulin Code(s): E11.65 - Type 2 diabetes mellitus with hyperglycemia Status: Acute Assessment and Plan: on insulin by primary team (3) Elevated liver enzymes: Code(s): R74.8 - Abnormal levels of other serum enzymes Status: Acute Assessment and Plan: no etoh use, trending down, only had mild elevation and normal bilirubin will check hepatitis panel (4) Hypokalemia: Code(s): E87.6 - Hypokalemia Status: Acute Assessment and Plan: treated (5) Nausea: Code(s): R11.0 - Nausea Status: Acute Assessment and Plan: will monitor, from pancreatitis but he complains for several days, may need EGD if persistent. GI Consult Note Consult date/time: 08/15/19 12:27 Reason for consult: pancreatitis HPI: Mark Anthony Westfall Jr. is a 63 year old male with past medical history of diabetes on insulin, chronic back pain, CAD, CVA, cholecystectomy in November of 2018 with pancreatitis here admitted with several days of decrease appetite but new onset of pain at the epigastric area for 2-3 days with radiation to his back along with nausea without vomiting, pain moderate intensity. This was similar to previous GB attack . He had mild elevation of liver enzymes and blood work consistent with pancreatitis, CT scan of the abdomen showed uncomplicated acute pancreatitis. Denies ETOH use, triglycerides normal. He is still nauseous, pain better with iv dilaudid. Review of Systems Constitutional: Constitutional: Denies headache(s) and Denies weakness Eyes: Eyes: Denies blurry vision ENT: Reports Normal hearing present, Denies headache(s) and Denies neck pain Cardiovascular: Cardiovascular: Denies chest pain and Denies dyspnea Respiratory: Respiratory: Denies dyspnea Gastrointestinal: Gastrointestinal: Reports abdominal pain, Denies melena and Reports nausea Genitourinary: Genitourinary: Denies dysuria Musculoskeletal: Musculoskeletal: Denies neck pain Integumentary/Breasts: Skin/Breast: Denies dry skin Neurologic: Reports Normal hearing present, Denies headache(s) and Denies weakness Psychiatric: Psychiatric: Denies anxiety Endocrine: Endocrine: Denies change in body appearance Hematologic/Lymphatic: Hematologic/Lymphatic: Denies easy bleeding Allergic/Immunologic: Allergic/Immunologic: Denies urticaria PMFSH Past Medical History Medical History (Updated 08/15/19 @ 12:34 by Rito Harmon MD) Anemia Anxiety Arthritis Asthma Back fracture Bulging discs CAD (coronary artery disease) CHF (congestive heart failure) Chronic back pain Chronic kidney disease, stage 3 With baseline creatinine between 1.2 and 1.5 Coronary artery disease CVA (cerebral vascular accident) 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
[2019-08-15] MEDS: INSULIN ASPART (*BKC) 100 UNITS/ML SUB-Q ×2 (13:13→17:40)
[2019-08-15 13:24] LABS: Glucose Point of Care 206 (65-105)
--- NOTE | 2019-08-15 13:45 | PM.IMPN ---
Progress Note: A&P Assessment and Plan (1) Acute pancreatitis: Qualifiers: Acute pancreatitis complication: unspecified Pancreatitis type: unspecified pancreatitis type Qualified Code(s): K85.90 - Acute pancreatitis without necrosis or infection, unspecified Code(s): K85.90 - Acute pancreatitis without necrosis or infection, unspecified Status: Acute Assessment and Plan: 08/15/19 13:45 Mark Anthony Westfall Jr. is a 63 year old male with a past medical history chronic back pain with herniated disks, and chronically on pain medication,DM on insulin, CAD, CVAX3, hemotoma, patient patient was diagnosed with seizure, had a cholecystectomy in November of 2018, present at the with complaint epigastric pain 2 days nausea diarrhea denies any vomiting fever or chills though he felt cold, patient denies any chest pain palpitation dizziness patient had a CT scan of the abdomen showed patient has uncomplicated acute pancreatitis, currently patient pain is persisting feels a bit nauseated and no vomiting, plan is to the patient NPO gently hydrate the patient and provide the pain management, Today patient stats pain is stable and feel little nauseated, will like to try something clear to eat, denies any fever or chills patient's lipase is a stable at this 669. Will start the patient on clear liquid and monitor advanced his diet as tolerated (2) Hypokalemia: Code(s): E87.6 - Hypokalemia Status: Acute Assessment and Plan: Most likely secondary to poor p.o. intake will monitor and supplement (3) Seizure: Code(s): R56.9 - Unspecified convulsions Status: Acute Assessment and Plan: Will resume home medication will switch Keppra to IV while patient is NPO (4) Diabetes mellitus with hyperglycemia: Qualifiers: Diabetes mellitus correction insulin use: with termination clerk use Diabetes mellitus type: type 2 Qualified Code(s): E11.65 - Type 2 diabetes mellitus with hyperglycemia; Z79.4 - jail (current) use of insulin Code(s): E11.65 - Type 2 diabetes mellitus with hyperglycemia Status: Acute Assessment and Plan: Patient is on clear liquids will start the patient on sliding scale and monitor Subjective Date/time seen: 08/15/19 13:45 Mark Anthony Westfall Jr. is a 63 year old male with a past medical history chronic back pain with herniated disks, and chronically on pain medication,DM on insulin, CAD, CVAX3, hemotoma, patient patient was diagnosed with seizure, had a cholecystectomy in November of 2018, present at the with complaint epigastric pain 2 days nausea diarrhea denies any vomiting fever or chills though he felt cold, patient denies any chest pain palpitation dizziness patient had a CT scan of the abdomen showed patient has uncomplicated acute pancreatitis, currently patient pain is persisting feels a bit nauseated and no vomiting, plan is to the patient NPO gently hydrate the patient and provide the pain management, Today patient stats pain is stable and feel little nauseated, will like to try something clear to eat, denies any fever or chills patient's lipase is a stable at this 669. Review of Systems Review of Systems: All systems reviewed & are unremarkable except as noted in HPI and below Exam Const: General: comfortable and no acute distress HENMT: General nose exam: Normal nares present Mouth: Yes moist mucous membranes Eyes: General: appearance normal, both eyes and all related structures Sclera: sclerae normal Neck: Neck: supple Resp: Effort & Inspection: normal respiratory effort Auscultation: clear to auscultation bilaterally Cardio: Rate: regular rate Rhythm: regular rhythm GI: Other: Diffusely tender Skin: General skin exam: normal color and no rashes or lesions noted Neuro: Speech: normal speech Sensory Exam: normal sensation Extrem: General: normal to inspection Psych: Affect: Anxious affect present Objective Data Vital Signs Vital Sign
[2019-08-15 14:00] VITALS: BP 163/83; PULSE 92; RESP 20; TEMP 36.8; O2SAT 98
[2019-08-15 17:41] LABS: Glucose Point of Care 322 (65-105)
[2019-08-15 22:00] VITALS: BP 169/100; PULSE 85; RESP 18; TEMP 36.9; O2SAT 100
[2019-08-16 00:45] VITALS: O2SAT 98
[2019-08-16] MEDS: HYDROMORPHONE HCL 1 MG/ML INJ IV PUSH ×7 (02:25→23:51)
[2019-08-16 02:26] VITALS: PULSE 88
[2019-08-16] MEDS: METOPROLOL TARTRATE 50 MG TAB PO ×3 (02:26→20:38)
[2019-08-16] MEDS: SODIUM CHLORIDE 0.9% IV 1,000 ML 125 ML IV CONT (02:27)
[2019-08-16] MEDS: AMLODIPINE BESYLATE 5 MG TABLET 10 MG PO ×2 (02:27→13:24)
[2019-08-16 06:00] VITALS: BP 179/97; PULSE 77; RESP 20; TEMP 37; O2SAT 99
[2019-08-16 06:37] LABS: Hematocrit 39.7 % (42.0-52.0); Hemoglobin 12.8 g/dL (14.0-18.0); Mean Corpuscular HGB Conc 32.2 g/dl (32-36); Mean Corpuscular Hemoglobin 25.8 pg (26-34); Mean Platelet Volume 9.7 fl (7.4-10.4); Platelet Count Result 467 k/mm3 (150-375); Red Blood Count 4.96 M/mm3 (4.6-6.20); Red Cell Distribution Width 15.4 % (11.5-14.5); White Blood Count 10.2 K/mm3 (4.5-10.0)
[2019-08-16 06:55] LABS: Alanine Aminotransferase 35 U/L (4-50); Albumin Level 3.8 g/dL (3.5-5.1); Alkaline Phosphatase 155 U/L (38-126); Aspartate Amino Transferase 31 U/L (17-59); Bilirubin,Total 0.6 mg/dL (0.2-1.3); Blood Urea Nitrogen 14 mg/dL (9-20); Carbon Dioxide 23 mmol/L (22-30); Chloride 103 mmol/L (98-107); Estimated CRCL calculation 77 ml/min; Estimated Glomerular Filt Rate > 60; Glucose 247 mg/dL (75-110); Lipase 710 U/L (23-300); Potassium 3.5 mmol/L (3.4-5.0); Sodium 136 mmol/L (137-145)
[2019-08-16 08:08] LABS: Glucose Point of Care 235 (65-105)
[2019-08-16] MEDS: INSULIN DETEMIR 100 UNITS/ML 20 UNITS SUB-Q ×2 (08:40→17:53)
[2019-08-16] MEDS: INSULIN ASPART (*BKC) 100 UNITS/ML SUB-Q ×3 (08:41→17:52)
[2019-08-16] MEDS: DULOXETINE 60 MG CAPSULE.DR PO (09:31)
[2019-08-16] MEDS: levETIRAcetam 500 MG TABLET PO ×2 (09:31→20:38)
[2019-08-16] MEDS: DULOXETINE HCL 30 MG CAPSULE.DR PO (09:31)
[2019-08-16 10:20] LABS: Hepatitis B Surface Antigen Negative (Negative)
[2019-08-16 10:26] LABS: HAV RESULT Negative (Negative); Hepatitis B Core IgM Result Negative (Negative)
[2019-08-16 10:38] LABS: Hepatitis C Virus Antibody Negative (Negative)
[2019-08-16 11:37] VITALS: BMI 25.1
[2019-08-16 12:59] LABS: Glucose Point of Care 317 (65-105)
--- NOTE | 2019-08-16 13:21 | PM.IMPN ---
Progress Note: A&P Assessment and Plan (1) Acute pancreatitis: Qualifiers: Acute pancreatitis complication: unspecified Pancreatitis type: unspecified pancreatitis type Qualified Code(s): K85.90 - Acute pancreatitis without necrosis or infection, unspecified Code(s): K85.90 - Acute pancreatitis without necrosis or infection, unspecified Status: Acute Assessment and Plan: 08/16/19 13:21 Mark Anthony Westfall Jr. is a 63 year old male with a past medical history chronic back pain with herniated disks, and chronically on pain medication,DM on insulin, CAD, CVAX3, hemotoma, patient patient was diagnosed with seizure, had a cholecystectomy in November of 2018, present at the with complaint epigastric pain 2 days nausea diarrhea denies any vomiting fever or chills though he felt cold, patient denies any chest pain palpitation dizziness patient had a CT scan of the abdomen showed patient has uncomplicated acute pancreatitis, currently patient pain is persisting feels a bit nauseated and no vomiting, plan is to the patient NPO gently hydrate the patient and provide the pain management, Today patient stats pain is stable and feel little nauseated, will like to try something clear to eat, denies any fever or chills patient's lipase is a stable at this 669. on 08/14 started the patient on clear liquid his able to tolerate pain is still persisting patient was seen by GI and order MRCP which shows interstitial pancreatitis, patient lipase is stable at the 700 will continue present management and further recommendation to follow. (2) Hypokalemia: Code(s): E87.6 - Hypokalemia Status: Acute Assessment and Plan: Most likely secondary to poor p.o. intake will monitor and supplement (3) Seizure: Code(s): R56.9 - Unspecified convulsions Status: Acute Assessment and Plan: Will resume home medication will switch Keppra to IV while patient is NPO (4) Diabetes mellitus with hyperglycemia: Qualifiers: Diabetes mellitus residential insulin use: with terminal carman use Diabetes mellitus type: type 2 Qualified Code(s): E11.65 - Type 2 diabetes mellitus with hyperglycemia; Z79.4 - watermelon inspector (current) use of insulin Code(s): E11.65 - Type 2 diabetes mellitus with hyperglycemia Status: Acute Assessment and Plan: Patient is on clear liquids will start the patient on sliding scale and monitor (5) Hypertension: Code(s): I10 - Essential (primary) hypertension Status: Acute Assessment and Plan: Will continue home regimen and monitor Subjective Date/time seen: 08/16/19 13:21 Mark Anthony Westfall Jr. is a 63 year old male with a past medical history chronic back pain with herniated disks, and chronically on pain medication,DM on insulin, CAD, CVAX3, hemotoma, patient patient was diagnosed with seizure, had a cholecystectomy in November of 2018, present at the with complaint epigastric pain 2 days nausea diarrhea denies any vomiting fever or chills though he felt cold, patient denies any chest pain palpitation dizziness patient had a CT scan of the abdomen showed patient has uncomplicated acute pancreatitis, currently patient pain is persisting feels a bit nauseated and no vomiting, plan is to the patient NPO gently hydrate the patient and provide the pain management, Today patient stats pain is stable and feel little nauseated, will like to try something clear to eat, denies any fever or chills patient's lipase is a stable at this 669. on 08/14 started the patient on clear liquid his able to tolerate pain is still persisting patient was seen by GI and order MRCP which shows interstitial pancreatitis, patient lipase is stable at the 700 will continue present management and further recommendation to follow. Review of Systems Review of Systems: All systems reviewed & are unremarkable except as noted in HPI and below Exam Const: General: comfortable and no acute distress HENMT: General no
[2019-08-16 14:00] VITALS: BP 140/71; PULSE 80; RESP 18; TEMP 36.9; O2SAT 100
--- NOTE | 2019-08-16 16:15 | WPDGIPROGNO ---
Progress Note: A&P Assessment and Plan (1) Acute pancreatitis: Qualifiers: Acute pancreatitis complication: unspecified Pancreatitis type: unspecified pancreatitis type Qualified Code(s): K85.90 - Acute pancreatitis without necrosis or infection, unspecified Code(s): K85.90 - Acute pancreatitis without necrosis or infection, unspecified Status: Acute Assessment and Plan: MRCP reviewed, no stones or slugde, c/w interstitial pancreatitis continue with medical management, CL diet for now and iv pain analgesics (2) Elevated liver enzymes: Code(s): R74.8 - Abnormal levels of other serum enzymes Status: Acute Assessment and Plan: transaminases normal today, normal bilirubin (3) Nausea: Code(s): R11.0 - Nausea Status: Acute Assessment and Plan: also improving (4) Diabetes mellitus with hyperglycemia: Qualifiers: Diabetes mellitus buttermaker insulin use: with long-term use Diabetes mellitus type: type 2 Qualified Code(s): E11.65 - Type 2 diabetes mellitus with hyperglycemia; Z79.4 - shelter (current) use of insulin Code(s): E11.65 - Type 2 diabetes mellitus with hyperglycemia Status: Acute Subjective Date/time seen: 08/16/19 16:15 Interval history: less pain today but still using iv narcotics, toleraing liquid diet. Review of Systems Review of Systems: All systems reviewed & are unremarkable except as noted in HPI and below Exam Const: General: comfortable and no acute distress HENMT: General nose exam: Normal nares present Eyes: General: appearance normal, both eyes and all related structures Neck: Neck: no JVD Resp: Auscultation: clear to auscultation bilaterally Cardio: Rate: regular rate Rhythm: regular rhythm GI: Inspection: non-distended GI Palp: Yes Soft to palpation, No Firmness to palpation present (GI) and Yes Tenderness to palpation present (GI) (mild ttp, no rebound) Auscultation: normal bowel sounds Skin: General skin exam: normal color Neuro: General: gait normal Speech: normal speech Extrem: General: normal to inspection Psych: Mental Status: mental status grossly normal Objective Data Vital Signs Vital Signs: Vital Signs - 24 hr 08/15/19 22:00 08/16/19 00:45 08/16/19 02:26 Temperature 98.4 F Pulse Rate 85 88 Respiratory Rate 18 Blood Pressure 169/100 H Pulse Oximetry 100 98 08/16/19 06:00 Temperature 98.6 F Pulse Rate 77 Respiratory Rate 20 Blood Pressure 179/97 H Pulse Oximetry 99 Intake/Output Intake/Output: Intake & Output 08/13/19 08/14/19 08/15/19 08/16/19 22:59 22:59 23:59 23:59 Intake Total 1270 Balance 1270 Meds/Results Medications: Active Medications Generic Name Dose Route Start Last Admin Trade Name Freq PRN Reason Stop Dose Admin Amlodipine Besylate 10 mg 08/16/19 00:45 08/16/19 13:24 Norvasc PO 10 mg DAILY LUANA Administration Dextrose 12.5 gm 08/14/19 18:55 Dextrose 50% Syringe IV PUSH PRN PRN Hypoglycemia Protocol Duloxetine HCl 30 mg 08/16/19 09:00 08/16/19 09:31 Cymbalta PO 30 mg QAM LUANA Administration Duloxetine HCl 60 mg 08/16/19 09:00 08/16/19 09:31 Cymbalta PO 60 mg QAM LUANA Administration Glucagon 1 mg 08/14/19 18:55 Glucagon For Inj IM PRN PRN Hypoglycemia Protocol Glucose 15 gm 08/14/19 18:55 Glutose 15 PO PRN PRN Hypoglycemia Protocol Hydromorphone HCl 1 mg 08/14/19 15:59 08/16/19 13:23 Dilaudid Inj IV PUSH 1 mg Q3H PRN Administration Pain Rated 7-10 Dextrose 1,000 mls @ 100 mls/hr 08/14/19 18:55 Dextrose 5% 1,000 Ml IVPB PRN PRN Hypoglycemia Protocol Insulin Aspart 2 - 5 units 08/14/19 17:00 08/16/19 13:21 Novolog SUB-Q 4 units TIDWM LUANA Administration Protocol Insulin Detemir 20 units 08/16/19 08:00 08/16/19 08:40 Levemir SUB-Q 20 units BIDWM S
[2019-08-16 17:30] LABS: Glucose Point of Care 389 (65-105)
[2019-08-16 20:41] LABS: Glucose Point of Care 213 (65-105)
[2019-08-16 23:44] VITALS: BP 104/68; PULSE 56; RESP 20; TEMP 36.6; O2SAT 97
[2019-08-17 02:47] VITALS: BP 129/72; PULSE 62; RESP 20; TEMP 36.8; O2SAT 98
[2019-08-17] MEDS: HYDROMORPHONE HCL 1 MG/ML INJ IV PUSH ×4 (03:35→18:45)
[2019-08-17 05:25] VITALS: BP 117/72; PULSE 55; RESP 20; TEMP 36.5; O2SAT 98
[2019-08-17 06:37] LABS: Hematocrit 37.3 % (42.0-52.0); Hemoglobin 11.6 g/dL (14.0-18.0); Mean Corpuscular HGB Conc 31.1 g/dl (32-36); Mean Corpuscular Hemoglobin 26.3 pg (26-34); Mean Corpuscular Volume 84.6 fl (80-100); Mean Platelet Volume 9.8 fl (7.4-10.4); Platelet Count Result 386 k/mm3 (150-375); Red Blood Count 4.41 M/mm3 (4.6-6.20); Red Cell Distribution Width 15.7 % (11.5-14.5); White Blood Count 6.9 K/mm3 (4.5-10.0)
[2019-08-17 06:52] LABS: Alanine Aminotransferase 29 U/L (4-50); Albumin Level 3.5 g/dL (3.5-5.1); Alkaline Phosphatase 120 U/L (38-126); Aspartate Amino Transferase 29 U/L (17-59); Bilirubin,Total 0.4 mg/dL (0.2-1.3); Blood Urea Nitrogen 21 mg/dL (9-20); Calcium 8.6 mg/dL (8.4-10.2); Carbon Dioxide 23 mmol/L (22-30); Chloride 101 mmol/L (98-107); Estimated CRCL calculation 66 ml/min; Estimated Glomerular Filt Rate 56; Glucose 191 mg/dL (75-110); Lipase 483 U/L (23-300); Potassium 3.4 mmol/L (3.4-5.0); Sodium 134 mmol/L (137-145)
[2019-08-17] MEDS: INSULIN DETEMIR 100 UNITS/ML 20 UNITS SUB-Q ×2 (08:03→18:59)
[2019-08-17] MEDS: DULOXETINE 60 MG CAPSULE.DR PO (08:06)
[2019-08-17] MEDS: AMLODIPINE BESYLATE 5 MG TABLET 10 MG PO (08:07)
[2019-08-17] MEDS: levETIRAcetam 500 MG TABLET PO ×2 (08:07→20:53)
[2019-08-17] MEDS: METOPROLOL TARTRATE 50 MG TAB PO ×2 (08:07→20:52)
[2019-08-17 08:41] LABS: Glucose Point of Care 157 (65-105)
[2019-08-17] MEDS: DULOXETINE HCL 30 MG CAPSULE.DR PO (09:46)
[2019-08-17 14:00] VITALS: BP 122/70; PULSE 75; RESP 16; TEMP 36.7; O2SAT 100
[2019-08-17] MEDS: INSULIN ASPART (*BKC) 100 UNITS/ML SUB-Q (14:12)
[2019-08-17 14:21] LABS: Glucose Point of Care 219 (65-105)
--- NOTE | 2019-08-17 15:54 | PM.IMPN ---
Progress Note: A&P Assessment and Plan (1) Acute pancreatitis: Qualifiers: Acute pancreatitis complication: unspecified Pancreatitis type: unspecified pancreatitis type Qualified Code(s): K85.90 - Acute pancreatitis without necrosis or infection, unspecified Code(s): K85.90 - Acute pancreatitis without necrosis or infection, unspecified Status: Acute Assessment and Plan: 08/16/19 13:21 Mark Anthony Westfall Jr. is a 63 year old male with a past medical history chronic back pain with herniated disks, and chronically on pain medication,DM on insulin, CAD, CVAX3, hemotoma, patient patient was diagnosed with seizure, had a cholecystectomy in November of 2018, present at the with complaint epigastric pain 2 days nausea diarrhea denies any vomiting fever or chills though he felt cold, patient denies any chest pain palpitation dizziness patient had a CT scan of the abdomen showed patient has uncomplicated acute pancreatitis, currently patient pain is persisting feels a bit nauseated and no vomiting, plan is to the patient NPO gently hydrate the patient and provide the pain management, Today patient stats pain is stable and feel little nauseated, will like to try something clear to eat, denies any fever or chills patient's lipase is a stable at this 669. on 08/14 started the patient on clear liquid his able to tolerate pain is still persisting patient was seen by GI and order MRCP which shows interstitial pancreatitis and no stone, patient lipase draining down from 700 to 400, patient's the pain is better will like to advance his diet, will go ahead and increase diet to full liquids will monitor overnight remained stable will discharge the patient home tomorrow (2) Hypokalemia: Code(s): E87.6 - Hypokalemia Status: Acute Assessment and Plan: Most likely secondary to poor p.o. intake will monitor and supplement (3) Seizure: Code(s): R56.9 - Unspecified convulsions Status: Acute Assessment and Plan: Will resume home medication will switch Keppra to IV while patient is NPO (4) Diabetes mellitus with hyperglycemia: Qualifiers: Diabetes mellitus moth exterminator insulin use: with moth exterminator use Diabetes mellitus type: type 2 Qualified Code(s): E11.65 - Type 2 diabetes mellitus with hyperglycemia; Z79.4 - exterminator termite (current) use of insulin Code(s): E11.65 - Type 2 diabetes mellitus with hyperglycemia Status: Acute Assessment and Plan: Patient is on clear liquids will start the patient on sliding scale and monitor (5) Hypertension: Code(s): I10 - Essential (primary) hypertension Status: Acute Assessment and Plan: Will continue home regimen and monitor Subjective Date/time seen: 08/17/19 15:54 Review of Systems Review of Systems: All systems reviewed & are unremarkable except as noted in HPI and below Exam Const: General: comfortable and no acute distress HENMT: General nose exam: Normal nares present Mouth: Yes moist mucous membranes Eyes: General: appearance normal, both eyes and all related structures Sclera: sclerae normal Neck: Neck: supple Resp: Effort & Inspection: normal respiratory effort Auscultation: clear to auscultation bilaterally Cardio: Rate: regular rate Rhythm: regular rhythm GI: Other: Diffusely tender Skin: General skin exam: normal color and no rashes or lesions noted Neuro: Speech: normal speech Sensory Exam: normal sensation Extrem: General: normal to inspection Psych: Affect: Anxious affect present Objective Data Vital Signs Vital Signs: Vital Signs - 24 hr 08/16/19 23:44 08/17/19 02:47 08/17/19 05:25 Temperature 98 F 98.3 F 97.7 F Pulse Rate 56 L 62 55 L Respiratory Rate 20 20 20 Blood Pressure 104/68 129/72 117/72 Pulse Oximetry 97 98 98 08/17/19 14:00 Temperature 98.0 F Pulse Rate 75 Respiratory Rate 16 Blood Pressure 122/70 Pulse Oximetry 100 Intake/Output Intake/Outp
--- NOTE | 2019-08-17 18:01 | WPDGIPROGNO ---
Progress Note: A&P Assessment and Plan (1) Acute pancreatitis: Qualifiers: Acute pancreatitis complication: unspecified Pancreatitis type: unspecified pancreatitis type Qualified Code(s): K85.90 - Acute pancreatitis without necrosis or infection, unspecified Code(s): K85.90 - Acute pancreatitis without necrosis or infection, unspecified Status: Acute Assessment and Plan: MRCP reviewed, no stones or slugde, c/w interstitial pancreatitis continue with medical management, ok to advance diet as tolerated IV analgesics prn home in 1-2 days (2) Elevated liver enzymes: Code(s): R74.8 - Abnormal levels of other serum enzymes Status: Acute Assessment and Plan: transaminases normal today, normal bilirubin (3) Nausea: Code(s): R11.0 - Nausea Status: Acute Assessment and Plan: resolved (4) Diabetes mellitus with hyperglycemia: Qualifiers: Diabetes mellitus custodial insulin use: with rat exterminator use Diabetes mellitus type: type 2 Qualified Code(s): E11.65 - Type 2 diabetes mellitus with hyperglycemia; Z79.4 - halfway (current) use of insulin Code(s): E11.65 - Type 2 diabetes mellitus with hyperglycemia Status: Acute Subjective Date/time seen: 08/17/19 18:01 Interval history: requiring less iv narcotics, better today Review of Systems Review of Systems: All systems reviewed & are unremarkable except as noted in HPI and below Exam Const: General: comfortable and no acute distress HENMT: General nose exam: Normal nares present Eyes: General: appearance normal, both eyes and all related structures Neck: Neck: no JVD Resp: Auscultation: clear to auscultation bilaterally Cardio: Rate: regular rate Rhythm: regular rhythm GI: Inspection: non-distended GI Palp: Yes Soft to palpation, No Firmness to palpation present (GI) and Yes Tenderness to palpation present (GI) (mild ttp, no rebound) Auscultation: normal bowel sounds Skin: General skin exam: normal color Neuro: General: gait normal Speech: normal speech Extrem: General: normal to inspection Psych: Mental Status: mental status grossly normal Objective Data Vital Signs Vital Signs: Vital Signs - 24 hr 08/16/19 23:44 08/17/19 02:47 08/17/19 05:25 Temperature 98 F 98.3 F 97.7 F Pulse Rate 56 L 62 55 L Respiratory Rate 20 20 20 Blood Pressure 104/68 129/72 117/72 Pulse Oximetry 97 98 98 08/17/19 14:00 Temperature 98.0 F Pulse Rate 75 Respiratory Rate 16 Blood Pressure 122/70 Pulse Oximetry 100 Intake/Output Intake/Output: Intake & Output 08/14/19 08/15/19 08/16/19 08/17/19 22:59 23:59 23:59 23:59 Intake Total 2079 560 Balance 2079 560 Meds/Results Medications: Active Medications Generic Name Dose Route Start Last Admin Trade Name Freq PRN Reason Stop Dose Admin Amlodipine Besylate 10 mg 08/16/19 00:45 08/17/19 08:07 Norvasc PO 10 mg DAILY LUANA Administration Dextrose 12.5 gm 08/14/19 18:55 Dextrose 50% Syringe IV PUSH PRN PRN Hypoglycemia Protocol Duloxetine HCl 30 mg 08/16/19 09:00 08/17/19 09:46 Cymbalta PO 30 mg QAM LUANA Administration Duloxetine HCl 60 mg 08/16/19 09:00 08/17/19 08:06 Cymbalta PO 60 mg QAM LUANA Administration Glucagon 1 mg 08/14/19 18:55 Glucagon For Inj IM PRN PRN Hypoglycemia Protocol Glucose 15 gm 08/14/19 18:55 Glutose 15 PO PRN PRN Hypoglycemia Protocol Hydromorphone HCl 1 mg 08/14/19 15:59 08/17/19 13:45 Dilaudid Inj IV PUSH 1 mg Q3H PRN Administration Pain Rated 7-10 Dextrose 1,000 mls @ 100 mls/hr 08/14/19 18:55 Dextrose 5% 1,000 Ml IVPB PRN PRN Hypoglycemia Protocol Insulin Aspart 2 - 5 units 08/14/19 17:00 08/17/19 14:12 Novolog SUB-Q 2 units TIDWM LUANA Administration Protocol Insulin Detemir 20 units 08/16/19 08:00 08/17/19 08:03 [place]
[2019-08-17 18:36] LABS: Glucose Point of Care 202 (65-105)
[2019-08-17 20:52] VITALS: PULSE 64
[2019-08-17 21:37] VITALS: BP 110/66; PULSE 57; RESP 20; TEMP 36.5; O2SAT 99
[2019-08-17 22:36] LABS: Glucose Point of Care 319 (65-105)
[2019-08-18 02:17] VITALS: BP 123/71; PULSE 54; RESP 20; TEMP 36.3; O2SAT 96
[2019-08-18] MEDS: HYDROMORPHONE HCL 1 MG/ML INJ IV PUSH ×4 (02:20→16:12)
[2019-08-18 06:12] LABS: Hematocrit 32.8 % (42.0-52.0); Hemoglobin 10.6 g/dL (14.0-18.0); Mean Corpuscular HGB Conc 32.3 g/dl (32-36); Mean Corpuscular Volume 80.4 fl (80-100); Mean Platelet Volume 9.7 fl (7.4-10.4); Platelet Count Result 435 k/mm3 (150-375); Red Blood Count 4.08 M/mm3 (4.6-6.20); Red Cell Distribution Width 15.2 % (11.5-14.5); White Blood Count 7.4 K/mm3 (4.5-10.0)
[2019-08-18 07:07] VITALS: BP 107/59; PULSE 56; RESP 20; TEMP 36.4; O2SAT 98
[2019-08-18 07:35] LABS: Alanine Aminotransferase 25 U/L (4-50); Albumin Level 3.4 g/dL (3.5-5.1); Alkaline Phosphatase 106 U/L (38-126); Aspartate Amino Transferase 26 U/L (17-59); Bilirubin,Total 0.3 mg/dL (0.2-1.3); Blood Urea Nitrogen 23 mg/dL (9-20); Calcium 8.7 mg/dL (8.4-10.2); Carbon Dioxide 30 mmol/L (22-30); Chloride 99 mmol/L (98-107); Estimated CRCL calculation 66 ml/min; Estimated Glomerular Filt Rate 56; Glucose 156 mg/dL (75-110); Lipase 382 U/L (23-300); Potassium 3.6 mmol/L (3.4-5.0); Sodium 134 mmol/L (137-145)
[2019-08-18] MEDS: DULOXETINE 60 MG CAPSULE.DR PO (08:32)
[2019-08-18 08:33] VITALS: PULSE 56
[2019-08-18] MEDS: DULOXETINE HCL 30 MG CAPSULE.DR PO (08:33)
[2019-08-18] MEDS: AMLODIPINE BESYLATE 5 MG TABLET 10 MG PO (08:33)
[2019-08-18] MEDS: METOPROLOL TARTRATE 50 MG TAB PO (08:33)
[2019-08-18] MEDS: levETIRAcetam 500 MG TABLET PO (08:34)
[2019-08-18] MEDS: INSULIN DETEMIR 100 UNITS/ML 20 UNITS SUB-Q (08:35)
[2019-08-18 13:13] LABS: Glucose Point of Care 197 (65-105)
[2019-08-18 14:00] VITALS: BP 90/44; PULSE 56; RESP 18; TEMP 36.7; O2SAT 91
[2019-08-18 14:43] VITALS: BP 105/58
--- NOTE | 2019-08-18 16:02 | PM.DS ---
DS: Diagnosis Admitting Diagnosis Admitting Diagnosis: Acute pancreatitis without necrosis or infection, unspecified Discharge Diagnosis (1) Acute pancreatitis: Qualifiers: Acute pancreatitis complication: unspecified Pancreatitis type: unspecified pancreatitis type Qualified Code(s): K85.90 - Acute pancreatitis without necrosis or infection, unspecified Code(s): K85.90 - Acute pancreatitis without necrosis or infection, unspecified Status: Acute Assessment and Plan: Mark Anthony Westfall Jr. is a 63 year old male with a past medical history chronic back pain with herniated disks, and chronically on pain medication,DM on insulin, CAD, CVAX3, hemotoma, patient patient was diagnosed with seizure, had a cholecystectomy in November of 2018, present at the with complaint epigastric pain 2 days nausea diarrhea denies any vomiting fever or chills though he felt cold, patient denies any chest pain palpitation dizziness patient had a CT scan of the abdomen showed patient has uncomplicated acute pancreatitis. As per previous note, pt lipase is @300. Pts gave him a sandwich burger. Pt tolerated it pt stable for discharge. (2) Hypokalemia: Code(s): E87.6 - Hypokalemia Status: Resolved (3) Seizure: Code(s): R56.9 - Unspecified convulsions Status: Acute Assessment and Plan: Will resume home medication (4) Diabetes mellitus with hyperglycemia: Qualifiers: Diabetes mellitus shelter insulin use: with terminal make up operator use Diabetes mellitus type: type 2 Qualified Code(s): E11.65 - Type 2 diabetes mellitus with hyperglycemia; Z79.4 - laborer marine terminal (current) use of insulin Code(s): E11.65 - Type 2 diabetes mellitus with hyperglycemia Status: Acute Assessment and Plan: Resume home medications (5) Hypertension: Code(s): I10 - Essential (primary) hypertension Status: Acute Assessment and Plan: Resume home regimen and monitor DS: Summary Time Spent with Patient Time attestation: Total time spent providing and/or coordinating discharge services:38 minutes on day of dischrage Exam Const: General: comfortable and no acute distress HENMT: General nose exam: Normal nares present Mouth: Yes moist mucous membranes Eyes: General: appearance normal, both eyes and all related structures Sclera: sclerae normal Neck: Neck: supple Resp: Effort & Inspection: normal respiratory effort Auscultation: clear to auscultation bilaterally Cardio: Rate: regular rate Rhythm: regular rhythm GI: Other: NT Skin: General skin exam: normal color and no rashes or lesions noted Neuro: Speech: normal speech Sensory Exam: normal sensation Extrem: General: normal to inspection Psych: Affect: Anxious affect present DS: Data Data Completed and Pending Labs on day of discharge: Labs from last 24 hours 08/18/19 08/18/19 08/18/19 13:00 05:15 05:15 WBC 7.4 RBC 4.08 L Hgb 10.6 L Hct 32.8 L MCV 80.4 MCH 26.0 MCHC 32.3 RDW 15.2 H Plt Count 435 H MPV 9.7 Sodium 134 L Potassium 3.6 Chloride 99 Carbon Dioxide 30 BUN 23 H Creatinine 1.30 Estim Creat Clear Calc 66 Estimated GFR 56 L Glucose 156 H POC Capillary Glucose 197 H Calcium 8.7 Total Bilirubin 0.3 AST 26 ALT 25 Alkaline Phosphatase 106 Total Protein 7.0 Albumin 3.4 L Lipase 382 H 08/17/19 08/17/19 20:57 18:25 WBC RBC Hgb Hct MCV MCH MCHC RDW Plt Count MPV Sodium Potassium Chloride Carbon Dioxide BUN Creatinine Estim Creat Clear Calc Estimated GFR Glucose POC Capillary Glucose 319 H 202 H Calcium Total Bilirubin AST ALT Alkaline Phosphatase Total Protein Albumin Lipase Discharge Plan Discharge Attending physician on discharge: Izzy Wood Consulting providers: Rito Harmon
== END 2019-08-18 17:55 | disposition home or self-care (01) | DRG 439 ==
LOC: ANHED 12:43 → ANH3MEDSUR 15:33
PROVIDERS: Family Medicine; Internal Medicine Gastroenterology; Admitting Provider Internal Medicine; Emergency Provider Emergency Medicine; PCP Family Medicine Adolescent Medicine; Visit Provider Family Medicine
DX: K85.90 Acute pancreatitis without necrosis or infection, unspecified (principal); I13.0 Hypertensive heart and chronic kidney disease with heart failure and stage 1 through stage 4 chronic kidney disease, or unspecified chronic kidney disease; Z79.4 Long term (current) use of insulin; G89.29 Other chronic pain; I25.10 Atherosclerotic heart disease of native coronary artery without angina pectoris; Z86.73 Personal history of transient ischemic attack (TIA), and cerebral infarction without residual deficits; Z90.49 Acquired absence of other specified parts of digestive tract; F41.8 Other specified anxiety disorders; M19.90 Unspecified osteoarthritis, unspecified site; J45.909 Unspecified asthma, uncomplicated; I50.9 Heart failure, unspecified; N18.3 Chronic kidney disease, stage 3 (moderate); F03.90 Unspecified dementia, unspecified severity, without behavioral disturbance, psychotic disturbance, mood disturbance, and anxiety; E11.42 Type 2 diabetes mellitus with diabetic polyneuropathy; E11.51 Type 2 diabetes mellitus with diabetic peripheral angiopathy without gangrene; K21.9 Gastro-esophageal reflux disease without esophagitis; I25.2 Old myocardial infarction; E11.22 Type 2 diabetes mellitus with diabetic chronic kidney disease; G47.33 Obstructive sleep apnea (adult) (pediatric); Z95.5 Presence of coronary angioplasty implant and graft; Z86.010 Personal history of colon polyps; Z96.653 Presence of artificial knee joint, bilateral; E87.6 Hypokalemia; E11.65 Type 2 diabetes mellitus with hyperglycemia; R56.9 Unspecified convulsions; G43.909 Migraine, unspecified, not intractable, without status migrainosus
CPT/HCPCS: 36415; 71046; 74177; 74181; 80048; 80053; 80074; 80076; 82948; 83690; 83735; 84484; 85025; 85027; 85610; 85730; 93005; 96374; 96375; 96376; 99285; A9270; J1170; J1815; J1953; J2270; J3010; J7030; Q9967

== ENCOUNTER 2019-11-08 01:18 | Observation (INO) | payer BC, SELFPAY ==
[2019-11-08] VITALS (12 sets, daily range): BP systolic 137–198; BP diastolic 77–106; PULSE 55–109; RESP 16–19; TEMP 36.1–37.2; O2SAT 98–100; BMI 27.3
--- NOTE | ~2019-11-08 | XR_ITS ---
EXAMINATION: XR foot LT min 3V DATE: 11/08/2019 03:36 INDICATION: Left great toe pain. TECHNIQUE: 4 views of left foot were obtained. COMPARISON: Left foot radiographs 01/23/2015 FINDINGS: Pes planus is noted. No fracture. There is mild osteoarthritis of first metatarsophalangeal joint and mild to moderate osteoarthritis of some of the midfoot joints. There are enthesophytes at the posterior and plantar aspects of calcaneal tuberosity. IMPRESSION: 1. Polyarticular osteoarthritis. 2. Pes planus. Reviewed, dictated and finalized at location A.
--- NOTE | ~2019-11-08 | CT_ITS ---
EXAMINATION: CT abdomen pelvis w con DATE: 11/08/2019 02:28 INDICATION: Generalized abdominal pain, fever. Nausea, vomiting, diarrhea TECHNIQUE: Computed tomography (CT) of the abdomen and pelvis was performed with 100 cc Omnipaque 350 intravenous contrast. Automated exposure control and iterative reconstruction technique were employe d. Exam dose: 1580.32 mGy-cm total exam DLP. COMPARISON: 08/14/2019 CT abdomen pelvis FINDINGS: There is distal esophageal wall thickening similar to 08/14/2019, possibly due to esophagitis . Status post cholecystectomy. No bile duct dilatation. There is surface nodularity of the liver sugges ting cirrhosis. No hepatic space-occupying mass lesion is evident. No splenomegaly. Pancreatic atroph y; no pancreatic mass lesion or calcification or ductal dilatation. Normal morphology of the adrenal glands. No renal space-occupying mass lesion or urinary tract calculus or hydroureteronephrosis. Retroaortic left renal vein. Normal caliber of the abdominal aorta. There is diffuse urinary bladder wall thickening similar to that noted on 08/14/2019, which may be due to bladder outlet obstruction secondary to prostate enlargement. Bladder neoplasm is not excluded. Small fat-containing left inguinal hernia. Again noted are prominent lymph nodes in the external iliac alverto chains primarily. No bowel obstruction or intraperitoneal free air. No evidence of appendicitis. Diffuse idiopathic skeletal hyperostosis of the thoracic spine. Severe degenerative disc disease thro ughout the lumbar and lumbosacral area. No suspicious osteolytic or osteoblastic lesions are noted. No infiltrate or consolidation at the lung bases. Small opacity of approximately 7 mm dimension in the middle lobe (series 4 image 8), of uncertain sig nificance. IMPRESSION: Cirrhosis Status post cholecystectomy There is bladder wall thickening; consider bladder outlet obstruction secondary to prostate enlargeme nt. Bladder neoplasm is not excluded. Reviewed, dictated and finalized at Location [facility]. Reviewed, dictated and finalized at location A. IMPRESSION: Cirrhosis Status post cholecystectomy There is bladder wall thickening; consider bladder outlet obstruction secondary to prostate enlargement. Bladder neoplasm is not excluded.
--- NOTE | ~2019-11-08 | CT_ITS ---
EXAMINATION: CT brain wo con DATE: 11/08/2019 02:28 INDICATION: Altered mental status. Fever. TECHNIQUE: Computed tomography (CT) of the head was performed without intravenous contrast. The mA wa s adjusted according to patient size. Iterative reconstruction technique was employed. The dose-lengt h product was 681.00 mGy-cm. COMPARISON: Head CT 07/07/2019 FINDINGS: There is a small old infarct in the left frontal lobe. There are scattered areas of low att enuation in the cerebral white matter. There is no intracranial hemorrhage, acute infarction, or abno rmal intracranial mass lesion. The ventricles are normal in size. The orbits are normal. There is muc osal thickening in the paranasal sinuses including near complete opacification of the right anterior ethmoid sinuses including complete opacification of the right frontal sinus with thickening and scler osis of the sinus westfall, consistent with chronic sinusitis. The mastoid air cells are normal. IMPRESSION: 1. Small old infarct in left frontal lobe. 2. Unchanged mild nonspecific cerebral white matter disease, which likely represents chronic small ve ssel ischemic disease. 3. Chronic sinusitis. Reviewed, dictated and finalized at location A. IMPRESSION: 1. Small old infarct in left frontal lobe. 2. Unchanged mild nonspecific cerebral white matter disease, which likely repre sents chronic small vessel ischemic disease. 3. Chronic sinusitis.
--- NOTE | ~2019-11-08 | XR_ITS ---
EXAMINATION: XR chest 1V portable DATE: 11/08/2019 02:06 INDICATION: Altered mental status. TECHNIQUE: A single frontal view of the chest was obtained. COMPARISON: Chest 2 views 08/14/2019, CT abdomen and pelvis 11/08/2019 FINDINGS: There is no pneumonia, pleural effusion, or pneumothorax. The heart size is normal. IMPRESSION: 1. No acute cardiopulmonary disease. Reviewed, dictated and finalized at location A.
--- NOTE | 2019-11-08 01:25 | ECG_ITS ---
Measurements Intervals [place] Rate: 112 P: 241 MS: 191 QRS: 36 QRSD: 122 T: 51 QT: 344 QTc: 471 Interpretive Statements SINUS OR ECTOPIC ATRIAL TACHYCARDIA BASELINE ARTIFACT- I, III, AVR, AVL ABNORMAL ECG Electronically Signed On 11-08-2019 7:31:17 CDT by Baljeet Borja D.O.
[2019-11-08] MEDS: SODIUM CHLORIDE 0.9% IV 1,000 ML 999 ML IV CONT (01:42)
--- NOTE | 2019-11-08 01:46 | ED.GENADULT ---
HPI - General Adult General Chief complaint: Fever Stated complaint: DONT FEEL GOOD Time Seen by Provider: 11/08/19 01:22 Source: RN notes reviewed History of Present Illness HPI narrative: Patient presents emergency department from home for not feeling well. Patient states he is not felt well for the past 2 days. Per the patient's he has had nausea and vomiting today as well as general fatigue she also notes that the patient been mildly more altered compared to his normal mental status. Per the the patient is also had diarrhea today patient is had no known fever at home although does note that he has had chills. He states that he has had some diffuse abdominal discomfort denies any cough. Per the the patient is thrown up a total of 3 times today and has not taken his insulin today from vomiting. The patient is normally on MS Contin twice a day which she has not taken as well he takes this for migraines and chronic back pain patient's also notes that his left great toe has an infection distally and is been red and swollen Related Data Home Medications Medication Instructions Recorded Confirmed Levemir FlexTouch U-100 Insuln 40 unit SUBCUT BID 07/07/19 08/14/19 amlodipine 10 mg PO DAILY 07/07/19 08/14/19 duloxetine 90 mg PO DAILY 07/07/19 08/14/19 lorazepam 1 mg PO BID PRN 07/07/19 08/14/19 metoprolol tartrate 50 mg PO Q12H 07/07/19 08/14/19 insulin aspart U-100 [Novolog 1 sliding scale dose SUBCUT 07/08/19 08/14/19 U-100 Insulin aspart] USEASDIRECTD morphine 60 mg PO BID PRN 08/14/19 08/14/19 Allergies Allergy/AdvReac Type Severity Reaction Status Date / Time Sulfa (Sulfonamide Allergy Intermediate RASH Verified 08/14/19 08:27 Antibiotics) tramadol Allergy Intermediate INCREASED Verified 08/14/19 08:27 HEART BEAT prochlorperazine Allergy Unknown MENTAL Verified 08/14/19 08:27 STATUS CHANGES verapamil Allergy Unknown DYSTONIC Verified 08/14/19 08:27 REACTION metoclopramide [From Reglan] Allergy Other Verified 08/14/19 08:27 promethazine [From Phenergan] Allergy Other Verified 08/14/19 08:27 rosuvastatin AdvReac Intermediate ACHY, Verified 08/14/19 08:27 FATIGUE Review of Systems Review of Systems: Narrative: Gen.: Denies fevers reports chills Eyes: Denies eye pain or visual change ENT: Denies congestion Respiratory: Reports cough CV: Denies chest pain or palpitations GI: See HPI denies burning, urgency, frequency or hematuria Musculoskeletal: Denies back pain or muscle pain Neuro: Denies numbness, tingling, weakness or focal weakness Skin: Denies rash Except as documented, all other systems reviewed and negative [facility] Past Medical History Medical History Anemia Anxiety Arthritis Asthma Back fracture Bulging discs CAD (coronary artery disease) CHF (congestive heart failure) Chronic back pain Chronic kidney disease, stage 3 With baseline creatinine between 1.2 and 1.5 Coronary artery disease CVA (cerebral vascular accident) 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 moderate concentric left ventricular hypertrophy and mild by atrial enlargement Elevated liver enzymes GERD (gastroesophageal reflux disease) Heart attack History of angina History of blood transfusion HTN (hypertension) Hyperlipidemia Hyperlipidemia Hypertension Migraine Nausea Obstructive sleep apnea Intolerant to CPAP therapy Peripheral neuropathy Peripheral neuropathy Pneumonia 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
[2019-11-08 01:52] LABS: Basophils Absolute Auto 0.1 K/mm3 (0.0-0.1); Basophils Percent Auto 0.5 % (0.2-1.2); Eosinophils Absolute Auto 0.8 K/mm3 (0-0.3); Eosinophils Percent Auto 7.5 % (0-4.4); Hematocrit 34.3 % (42.0-52.0); Hemoglobin 10.8 g/dL (14.0-18.0); Immature Granulocyte Absolute 0.04 K/mm3 (0.00-0.031); Immature Granulocyte Percent A 0.4 % (0-0.5); Lymphocytes Absolute Auto 2.22 K/mm3 (0.9-3.2); Mean Corpuscular HGB Conc 31.5 g/dl (32-36); Mean Corpuscular Hemoglobin 25.9 pg (26-34); Mean Corpuscular Volume 82.3 fl (80-100); Mean Platelet Volume 10.6 fl (7.4-10.4); Monocytes Percent Auto 9.1 % (2.6-8.5); Neutrophils Absolute Auto 6.9 K/mm3 (1.3-6.7); Neutrophils Percent Auto 62.5 % (45.5-73.1); Platelet Count Result 264 k/mm3 (150-375); Red Blood Count 4.17 M/mm3 (4.6-6.20); Red Cell Distribution Width 16.1 % (11.5-14.5); White Blood Count 11.1 K/mm3 (4.5-10.0)
[2019-11-08 01:59] LABS: INR 1.1; Prothrombin Time 13.5 Seconds (11.1-14.7)
[2019-11-08 02:00] LABS: Alanine Aminotransferase 12 U/L (4-50); Albumin Level 4.1 g/dL (3.5-5.1); Alkaline Phosphatase 152 U/L (38-126); Aspartate Amino Transferase 16 U/L (17-59); Bilirubin,Total 0.4 mg/dL (0.2-1.3); Blood Urea Nitrogen 32 mg/dL (9-20); Carbon Dioxide 27 mmol/L (22-30); Chloride 99 mmol/L (98-107); Estimated Glomerular Filt Rate 36; Glucose 474 mg/dL (75-110); Partial Thromboplastin Time 31.9 SECONDS (22.3-36.8); Potassium 3.8 mmol/L (3.4-5.0); Sodium 135 mmol/L (137-145)
[2019-11-08 02:01] LABS: Lactic Acid Reflex 2.5 mmol/L (0.7-2.1)
[2019-11-08 02:06] LABS: Lipase 45 U/L (23-300)
[2019-11-08 02:19] LABS: Troponin I < 0.012 ng/mL (0.000-0.034)
[2019-11-08 02:54] LABS: Add Urine Microscopic? YES; Appearance Urine Clear (Clear); Bilirubin Urine Negative (Negative); Blood Urine 1+ (Negative); Color Urine Colorless (Yellow); Glucose Urine UA 3+ mg/dL (Negative); Ketones Urine Negative (Negative); Leukocyte Esterase Ur Negative LEU/UL (Negative); Nitrate Urine Negative (Negative); Protein Urine Negative (Negative); Specific Grav Ur 1.014 (1.001-1.035); Urobilinogen Urine Negative mg/dL (<2.0); WBC Urine 0-3 /hpf
[2019-11-08 03:20] LABS: Glucose Point of Care 424 (65-105)
[2019-11-08] MEDS: INSULIN ASPART (*BKC) 100 UNITS/ML 8 UNITS SUB-Q (03:35)
[2019-11-08] MEDS: MORPHINE SULFATE 2 MG/ML INJ IV PUSH ×2 (03:35→06:03)
[2019-11-08 04:47] LABS: Reflex Lactic Acid Yes or No Add Lactic
[2019-11-08 05:15] LABS: Glucose Point of Care 301 (65-105)
[2019-11-08 06:12] LABS: Lactic Acid 1.8 mmol/L (0.7-2.1)
--- NOTE | 2019-11-08 08:14 | ADMGEN ---
This patient, Mark Anthony Westfall Jr., was admitted to [facility] Surg Room 332-01. Patient/family oriented to hospital policies and general routines including ID bracelet, bed and alarms, visiting hours, pain management, procedures, bathroom and other care routines, personal items, smoking policy, room service/diet, and visiting hours. Valuables list has been completed. Information on how to activate the Rapid Response Team has been discussed. Patient/Family are encouraged to report perceived risks to care and to ask questions if they do not understand what they are told or what they should do.
--- NOTE | 2019-11-08 09:53 | PM.IMHP ---
H&P: HPI History of Present Illness Chief complaint: nausea and vomiting,hyperglycemia,cellulitis left Narrative: Mark Anthony Westfall Jr. is a 64 year old male with DM, hx of CVA and CKD here for nausea, vomiting and diarrhea. Patient alert and oriented but has poor memory due to hx of CVA. Hx is supplemeted by his with patient permission. Patient was feeling well until about 2 days prior to admission when he developed nausea, vomiting and headache. He felt cold with shaking chills but no fever documented at home. His is a registered nurse. Patient has had decreased appetite. He denies any dysuria or hematuria. No urinary hesitancy or dribbling. He does complain of cough productive yellow sputum but no hemoptysis. No chest pain or palpitations. He describes episodes of choking with eating over the past 3-4 months but states this is chronic and declines speech therapy evaluation. does state patient pockets food at times. This is related to his CVAs and more recent subdural hematoma last summer. Patient denies any sick contacts. He has remained quarantined. He did injure his left great toe after striking the bedpost about 4-5 days ago. The toe is not tender. The nail has come off. He does have peripheral neuropathy but normally has some sensation in his toes. He denies any other skin ulcerations or rashes. states patient was more dehydrated. She also states patient has sundowning and is confused and sometimes belligerent at night. His stated patient was having diarrhea but patient denies this. Patient presented emergency room for evaluation. He was hypertensive and mildly tachycardic. He was not hypoxic. Was elevated to 1.9 which is above his baseline. Glucose 474. White count slightly elevated 11,100. Lactic acid 2.5. Urinalysis was not consistent with UTI. CT of the head shoulder old CVA and chronic sinusitis. Chest x-ray was clear. Left foot x-ray showed arthritis but no evidence of osteomyelitis. CT of the abdomen and pelvis showed distal esophageal wall thickening, liver nodularity consistent with cirrhosis, diffuse bladder wall thickening and some prominent lymph nodes in the external iliac chain all appear to be noted in prior studies. No acute findings on the CT scan. Patient started on IV fluids. Start on broad-spectrum IV antibiotics. COVID testing was performed. He was admitted for further care. Review of Systems Review of Systems: Narrative: Patient is noncompliant with glucose testing at home. His most recent A1c was in the 9 range. Does complain of dry eyes but no vision changes. 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 Large SDH after head trauma from a fall. 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
[2019-11-08] MEDS: SODIUM CHLORIDE 0.9% IV 1,000 ML 80 ML IV CONT ×2 (11:01→23:56)
[2019-11-08] MEDS: INSULIN DETEMIR 100 UNITS/ML 40 UNITS SUB-Q ×2 (11:02→21:26)
[2019-11-08] MEDS: levETIRAcetam 500 MG TABLET PO ×2 (12:41→21:09)
[2019-11-08] MEDS: METOPROLOL TARTRATE 50 MG TAB PO ×2 (12:41→21:09)
[2019-11-08] MEDS: ASPIRIN 325 MG ENTERIC TABLET PO (12:42)
[2019-11-08] MEDS: PANTOPRAZOLE SODIUM IV 40 MG VIAL IV PUSH (12:44)
[2019-11-08] MEDS: AMLODIPINE BESYLATE 5 MG TABLET 10 MG PO (13:10)
[2019-11-08] MEDS: INSULIN ASPART (*BKC) 100 UNITS/ML SUB-Q ×2 (13:11→18:36)
[2019-11-08 13:25] LABS: SARS-CoV-2 RNA PCR Negative
--- NOTE | 2019-11-08 13:49 | PC.NURSE ---
Pt continually setting bed alarm off due to urinary urgency, regular movements, even in zone one. Pt refusing bed alarm, but he states he does want to comply with us and will do his best to call when he needs to use the restroom. Informed pt of our concern for his safety due to his fall history and his altered gait. Pt aware and states he does not want the bed alarm.
[2019-11-08 14:26] LABS: Glucose Point of Care 348 (65-105)
[2019-11-08 14:26] LABS: Glucose Point of Care 322 (65-105)
[2019-11-08 19:08] LABS: Glucose Point of Care 234 (65-105)
[2019-11-08] MEDS: QUEtiapine FUMARATE 25 MG TABLET 50 MG PO (21:09)
[2019-11-09 02:00] VITALS: BP 111/61; PULSE 60; RESP 18; TEMP 36.2; O2SAT 100
[2019-11-09 03:09] LABS: Glucose Point of Care 239 (65-105)
[2019-11-09 06:00] VITALS: BP 119/67; PULSE 56; RESP 18; TEMP 36.4; O2SAT 100
[2019-11-09 06:08] LABS: Basophils Percent Auto 0.6 % (0.2-1.2); Eosinophils Absolute Auto 0.7 K/mm3 (0-0.3); Eosinophils Percent Auto 10.7 % (0-4.4); Hematocrit 30.7 % (42.0-52.0); Hemoglobin 9.6 g/dL (14.0-18.0); Immature Granulocyte Absolute 0.01 K/mm3 (0.00-0.031); Immature Granulocyte Percent A 0.1 % (0-0.5); Lymphocytes Absolute Auto 2.08 K/mm3 (0.9-3.2); Mean Corpuscular HGB Conc 31.3 g/dl (32-36); Mean Corpuscular Hemoglobin 25.3 pg (26-34); Mean Platelet Volume 9.6 fl (7.4-10.4); Monocytes Absolute Auto 0.6 K/mm3 (0.1-0.6); Monocytes Percent Auto 9.2 % (2.6-8.5); Neutrophils Absolute Auto 3.3 K/mm3 (1.3-6.7); Neutrophils Percent Auto 48.4 % (45.5-73.1); Platelet Count Result 247 k/mm3 (150-375); Red Blood Count 3.79 M/mm3 (4.6-6.20); Red Cell Distribution Width 15.8 % (11.5-14.5); White Blood Count 6.7 K/mm3 (4.5-10.0)
[2019-11-09 06:09] LABS: Ammonia < 9 umol/L (9-30)
[2019-11-09 06:15] LABS: Hemoglobin A1C 11.3 % (<5.7)
[2019-11-09 06:23] LABS: Blood Urea Nitrogen 23 mg/dL (9-20); Calcium 8.5 mg/dL (8.4-10.2); Carbon Dioxide 27 mmol/L (22-30); Chloride 104 mmol/L (98-107); Estimated CRCL calculation 56 ml/min; Estimated Glomerular Filt Rate 47; Glucose 144 mg/dL (75-110); Potassium 3.6 mmol/L (3.4-5.0); Sodium 137 mmol/L (137-145)
[2019-11-09 06:47] LABS: Prostate Specific Antigen 0.5 ng/mL (< OR = 4.0)
[2019-11-09 07:22] LABS: Folic Acid 5.9 ng/mL (2.76->20)
[2019-11-09 08:00] VITALS: BP 155/81; PULSE 50; RESP 18; O2SAT 100
[2019-11-09] MEDS: AMLODIPINE BESYLATE 5 MG TABLET 10 MG PO (08:07)
[2019-11-09] MEDS: levETIRAcetam 500 MG TABLET PO (08:07)
[2019-11-09] MEDS: ASPIRIN 325 MG ENTERIC TABLET PO (08:07)
[2019-11-09] MEDS: PANTOPRAZOLE SODIUM IV 40 MG VIAL IV PUSH (08:07)
[2019-11-09 08:08] VITALS: PULSE 50
[2019-11-09] MEDS: INSULIN DETEMIR 100 UNITS/ML 40 UNITS SUB-Q (08:45)
[2019-11-09 09:06] LABS: Glucose Point of Care 157 (65-105)
[2019-11-09] MEDS: INSULIN ASPART (*BKC) 100 UNITS/ML SUB-Q (12:19)
--- NOTE | 2019-11-09 13:18 | PM.IMPN ---
Progress Note: A&P Assessment and Plan (1) Nausea & vomiting: Qualifiers: Vomiting type: unspecified Vomiting Intractability: non-intractable Qualified Code(s): R11.2 - Nausea with vomiting, unspecified Code(s): R11.2 - Nausea with vomiting, unspecified Status: Acute Assessment and Plan: Now resolved. CT abdomen/pelvis cirrhosis, status post cholecystectomy and bladder wall thickening; consider bladder outlet obstruction secondary to prostate enlargement. Bladder neoplasm is not excluded. Remains on room air. PSA normal. Will discharge home today. (2) LUIS MIGUEL (acute kidney injury): Code(s): N17.9 - Acute kidney failure, unspecified Status: Acute Assessment and Plan: Creatinine 1.90 on admission. Baseline creatinine 1.00-1.30. Suspect and dehydration related to his poor oral intake, nausea, vomiting and possibly diarrhea. Creatinine better at 1.50 today. Has been on IV fluids. Will need to follow as outpatient. (3) Chronic kidney disease, stage 3: Code(s): N18.3 - Chronic kidney disease, stage 3 (moderate) Status: Acute Assessment and Plan: Creatinine as noted above. Follow as outpatient. (4) Cellulitis of great toe, left: Code(s): L03.032 - Cellulitis of left toe Status: Acute Assessment and Plan: Left great toe only mildly erythematous. On IV imipenem and vancomycin. Wound culture growing Staph aureus and Group B Streptococcus. Blood cultures negative to date. Will discharge home on oral clindamycin. (5) Seizure: Code(s): R56.9 - Unspecified convulsions Status: Acute Assessment and Plan: Stable. No evidence of seizure over the past few days per patient. Continue Keppra. (6) Diabetes mellitus type 2, insulin dependent: Code(s): E11.9 - Type 2 diabetes mellitus without complications; Z79.4 - assisted (current) use of insulin Status: Acute Assessment and Plan: HgbA1C 11.3. Glucose reviewed on 11/09/2019 and now acceptable. Continue home Levemir and sliding scale insulin. Will need to follow as outpatient. (7) Altered mental status: Qualifiers: Altered mental status type: unspecified Qualified Code(s): R41.82 - Altered mental status, unspecified Code(s): R41.82 - Altered mental status, unspecified Status: Acute Assessment and Plan: Patient in the emergency room did not recall his name. CT of the brain showing no acute findings. reported to previous provider patient does have significant confusion at night but does mention that it was worse last night. Now appears to be normal. TSH, B12, folate all normal. Will need to follow as outpatient. (8) Hypertension: Qualifiers: Hypertension type: essential hypertension Qualified Code(s): I10 - Essential (primary) hypertension Code(s): I10 - Essential (primary) hypertension Status: Acute Assessment and Plan: Blood pressure reviewed on 11/09/2019 and now acceptable. Continue metoprolol and amlodipine. Lisinopril on hold. Will need to follow as outpatient. (9) Medication nonadherence due to psychosocial problem: Code(s): Z91.14 - Patient's other noncompliance with medication regimen Status: Acute Assessment and Plan: As above. Patient has patient is with noncompliance related to his confusion at night. Seroquel was added and lorazepam was stopped 3 weeks ago but still taking as needed. Stable on home Seroquel and lorazepam here. (10) DVT prophylaxis: Code(s): Z29.9 - Encounter for prophylactic measures, unspecified Status: Acute Assessment and Plan: SCDs. Time Spent With Patient Time with patient: 15 - 25 minutes Subjective Date/time seen: 11/09/19 13:18 Interval history: Date of Service: 11/09/2019. Admitted with nausea & vomiting, LUIS MIGUEL, cellulitis left great toe. Feels much better. No further nausea or vomiting. N
[2019-11-09 14:00] VITALS: BP 147/75; PULSE 60; RESP 16; TEMP 36.9; O2SAT 100
[2019-11-09 17:51] LABS: Glucose Point of Care 213 (65-105)
--- NOTE | 2019-11-09 18:37 | PM.DS ---
DS: Admitting Diagnosis Admitting Diagnosis Admitting Diagnosis: Nausea with vomiting, unspecified DS: Discharge Diagnosis Discharge Diagnosis (1) Nausea & vomiting: Qualifiers: Vomiting Intractability: non-intractable Vomiting type: unspecified Qualified Code(s): R11.2 - Nausea with vomiting, unspecified Code(s): R11.2 - Nausea with vomiting, unspecified Status: Acute (2) LUIS MIGUEL (acute kidney injury): Code(s): N17.9 - Acute kidney failure, unspecified Status: Acute (3) Chronic kidney disease, stage 3: Code(s): N18.3 - Chronic kidney disease, stage 3 (moderate) Status: Acute (4) Cellulitis of great toe, left: Code(s): L03.032 - Cellulitis of left toe Status: Acute (5) Seizure: Code(s): R56.9 - Unspecified convulsions Status: Acute (6) Diabetes mellitus type 2, insulin dependent: Code(s): E11.9 - Type 2 diabetes mellitus without complications; Z79.4 - FDC (current) use of insulin Status: Acute (7) Altered mental status: Qualifiers: Altered mental status type: unspecified Qualified Code(s): R41.82 - Altered mental status, unspecified Code(s): R41.82 - Altered mental status, unspecified Status: Acute (8) Hypertension: Qualifiers: Hypertension type: essential hypertension Qualified Code(s): I10 - Essential (primary) hypertension Code(s): I10 - Essential (primary) hypertension Status: Acute (9) Medication nonadherence due to psychosocial problem: Code(s): Z91.14 - Patient's other noncompliance with medication regimen Status: Acute DS: Summary Hospital Course Reason for hospitalization: Nausea, vomiting and diarrhea. Hospital Course: Date of Service of Discharge: November 09, 2019. History of Present Illness: Patient is a 64-year-old gentleman with known diabetes mellitus, history of CVA and chronic kidney disease who presented to the emergency room with nausea, vomiting and diarrhea. Patient does have poor memory related to his CVA but is alert and oriented. History is supplemented by his . Patient reports 2 days prior to admission he developed nausea, vomiting and headache. He did feel cold with shaking chills but no fever documented at home. He has also had decrease in appetite. No urinary symptoms. He does report cough productive of yellow sputum but no hemoptysis. No shortness of breath. No chest pain or palpitations. In the emergency room, he was noted to be mildly hypertensive and tachycardic but not hypoxic. Glucose was elevated. Left foot x-ray did show arthritis but no evidence of osteomyelitis. He did have a CT scan done of the abdomen and pelvis showing distal esophageal wall thickening, liver nodularity consistent with cirrhosis and diffuse bladder wall thickening with some prominent lymph nodes in the external iliac chain all noted on prior studies. Patient was started on IV fluids. Given his known other comorbidities, he was started on broad-spectrum IV antibiotics. COVID-19 was also initiated in the emergency room. He was placed in observation for further evaluation and treatment. Course in Hospital: Patient was placed in observation on medical floor where he remained for the duration of his stay. COVID-19 testing was negative with isolation discontinued. As noted, he was started on broad-spectrum antibiotics in form of IV imipenem and vancomycin given his diabetes. Patient was only noted to have mild erythema of the left great toe which was essentially resolved prior to discharge. A wound culture of the left great toe was performed with preliminary results showing Staph aureus and group B strep. Blood cultures x2 were negative times 2 at time of discharge. WBC was only mildly elevated on admission and normal by the time of discharge. Patient to transition to oral clindamycin at discharge. He was noted to have slight increase in his creatinine with
== END 2019-11-09 15:35 | disposition home or self-care (01) ==
LOC: ANHED 05:56 → ANH3MEDSUR 06:09
PROVIDERS: Internal Medicine; Admitting Provider Internal Medicine; Emergency Provider Emergency Medicine; PCP Family Medicine Adolescent Medicine; Visit Provider Hospitalist
DX: R11.2 Nausea with vomiting, unspecified (principal); E11.65 Type 2 diabetes mellitus with hyperglycemia; L03.032 Cellulitis of left toe; B95.61 Methicillin susceptible Staphylococcus aureus infection as the cause of diseases classified elsewhere; R19.7 Diarrhea, unspecified; D64.9 Anemia, unspecified; I13.0 Hypertensive heart and chronic kidney disease with heart failure and stage 1 through stage 4 chronic kidney disease, or unspecified chronic kidney disease; I50.9 Heart failure, unspecified; I25.10 Atherosclerotic heart disease of native coronary artery without angina pectoris; E11.22 Type 2 diabetes mellitus with diabetic chronic kidney disease; E11.42 Type 2 diabetes mellitus with diabetic polyneuropathy; F17.290 Nicotine dependence, other tobacco product, uncomplicated; M21.42 Flat foot [pes planus] (acquired), left foot; M15.9 Polyosteoarthritis, unspecified; N18.3 Chronic kidney disease, stage 3 (moderate); N17.9 Acute kidney failure, unspecified; R56.9 Unspecified convulsions; Z79.4 Long term (current) use of insulin; Z91.14 Patient's other noncompliance with medication regimen; Z86.73 Personal history of transient ischemic attack (TIA), and cerebral infarction without residual deficits; Z95.1 Presence of aortocoronary bypass graft; Z96.653 Presence of artificial knee joint, bilateral
CPT/HCPCS: 36415; 70450; 71045; 73630; 74177; 80048; 80053; 81001; 82140; 82607; 82746; 82948; 83036; 83605; 83690; 84153; 84443; 84484; 85025; 85610; 85730; 87040; 87070; 87075; 87077; 87147; 87186; 87205; 87635; 93005; 96361; 96365; 96375; 96376; 97161; 97165; 99285; A9270; C9113; C9803; G0378; J0131; J0743; J1815; J2270; J3370; J7030; Q9967; U0003

== ENCOUNTER 2019-11-29 21:22 | Emergency (ER) | payer BC, SELFPAY ==
[2019-11-29 21:32] VITALS: BP 158/88; PULSE 102; RESP 18; TEMP 36.4; O2SAT 100
--- NOTE | 2019-11-29 22:01 | ED.UPPEXIN ---
HPI - Extremity Injury (Upper) General Chief Complaint: Extremity Injury, Upper Stated Complaint: Nueropathy pain to hands, diabetic Time Seen by Provider: 11/29/19 21:43 History of Present Illness HPI narrative: Patient is a 64-year-old male who presents ER with pain in his bilateral thumbs and ring fingers. It occurs right around the cuticle, the pain is burning and occasionally numb. Ongoing for 3-1/2 weeks. Has follow-up with his PCP in 2 weeks. Reports that pain improves with gabapentin but that he has run out. Does not check his blood sugars regularly but when he does they are in the 200s. He takes long-acting Levemir and then sliding scale otherwise. No swelling or redness to the fingers or hands. No injury. No neck or back pain associated with this. Related Data Home Medications Medication Instructions Recorded Confirmed Levemir FlexTouch U-100 Insuln 40 unit SUBCUT BID 07/07/19 11/08/19 amlodipine 10 mg PO BID 07/07/19 11/08/19 lorazepam 1 mg PO BID PRN 07/07/19 11/08/19 metoprolol tartrate 50 mg PO Q12H 07/07/19 11/08/19 insulin aspart U-100 [Novolog 1 sliding scale dose SUBCUT 07/08/19 11/08/19 U-100 Insulin aspart] USEASDIRECTD oxycodone-acetaminophen 2 tablet PO Q5H PRN MDD 100 11/08/19 11/08/19 quetiapine [Seroquel] 50 mg PO HS 11/08/19 11/08/19 Allergies Allergy/AdvReac Type Severity Reaction Status Date / Time Sulfa (Sulfonamide Allergy Intermediate RASH Verified 11/29/19 21:35 Antibiotics) tramadol Allergy Intermediate INCREASED Verified 11/29/19 21:35 HEART BEAT prochlorperazine Allergy Unknown MENTAL Verified 11/29/19 21:35 STATUS CHANGES verapamil Allergy Unknown DYSTONIC Verified 11/29/19 21:35 REACTION metoclopramide [From Reglan] Allergy Other Verified 11/29/19 21:35 promethazine [From Phenergan] Allergy Other Verified 11/29/19 21:35 rosuvastatin AdvReac Intermediate ACHY, Verified 11/29/19 21:35 FATIGUE Review of Systems Review of Systems: All systems reviewed & are unremarkable except as noted in HPI and below Constitutional: Constitutional: Denies chills, Denies fever(s) and Denies weakness Neurologic: Reports numbness Comments: Neuropathic pain in the hands PMFSH Social History Social History (Updated 11/08/19 @ 10:19 by Gonsalo Ward MD) Social History: Lives at home with his and son. Lifelong nonsmoker. Denies drug or alcohol use. He is a full code. Nominates his to be the individual who would make medical decisions for him if he is unable. He walks with a cane. Primary care physician: Dr. Nithin Craig Smoking status: Never smoker Tobacco type: cigars Second hand tobacco smoke exposure: Yes Alcohol intake: former Substance use: never Substance use type: does not use Additional living arrangements comments: The patient lives at home with his , 2 large dogs and a cat. He ambulates with a cane. He has 3 children. 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 Gender identity (if verbalized by the patient): Male Spiritual care concerns: No Agree to blood products: Yes Exam Narrative: Exam Narrative: GENERAL: Well-appearing, well-nourished, and in no acute distress. HEAD: Normocephalic, atraumatic. EXTREMITIES: Normal range of motion. No edema. Thumbs and ring fingers appear normal, cuticles are without paronychia or signs of infection. Negative carpal tunnel compression test. SKIN: Warm, dry, no rash. NEURO: Alert and oriented x3. PSYCH: Normal mood and affect. Course Course Emergency Course: Patient would like refill of gabapentin which we will oblige. Vital Signs Vital signs: Vital Signs Temperature 97.6 F 11/29/19 21:32 Pulse Rate 102 H 11/29/19 21:32 Respiratory Rate 18 11/29/19 21:32 Blood Pressure 158/88 H 11/29/19 21:32 Pulse Oximetry 100 11/29/19 21:32 Temperature 97.6 F 11/29/19 21:32 Pulse Rate 102
[2019-11-29 23:04] VITALS: BP 190/124; PULSE 102; RESP 18; O2SAT 99
== END 2019-11-29 22:45 | disposition home or self-care (01) ==
PROVIDERS: Emergency Provider Emergency Medicine; PCP Family Medicine Adolescent Medicine
DX: E11.42 Type 2 diabetes mellitus with diabetic polyneuropathy (principal); Z79.4 Long term (current) use of insulin; Z79.82 Long term (current) use of aspirin; J45.909 Unspecified asthma, uncomplicated; M19.90 Unspecified osteoarthritis, unspecified site; I50.9 Heart failure, unspecified; E11.22 Type 2 diabetes mellitus with diabetic chronic kidney disease; I13.0 Hypertensive heart and chronic kidney disease with heart failure and stage 1 through stage 4 chronic kidney disease, or unspecified chronic kidney disease; N18.3 Chronic kidney disease, stage 3 (moderate); F03.90 Unspecified dementia, unspecified severity, without behavioral disturbance, psychotic disturbance, mood disturbance, and anxiety; I25.2 Old myocardial infarction; F41.9 Anxiety disorder, unspecified; F32.9 Major depressive disorder, single episode, unspecified; E78.5 Hyperlipidemia, unspecified; G47.33 Obstructive sleep apnea (adult) (pediatric); Z77.22 Contact with and (suspected) exposure to environmental tobacco smoke (acute) (chronic); E11.51 Type 2 diabetes mellitus with diabetic peripheral angiopathy without gangrene; Z95.5 Presence of coronary angioplasty implant and graft; Z96.653 Presence of artificial knee joint, bilateral
CPT/HCPCS: 99281

== ENCOUNTER 2019-12-12 22:24 | Emergency (ER) | payer BC, SELFPAY ==
[2019-12-12 22:26] VITALS: BP 189/109; PULSE 80; RESP 16; TEMP 36.8; O2SAT 100
--- NOTE | 2019-12-12 23:52 | ED.HA ---
HPI - Headache General Chief Complaint: Headache Stated Complaint: headache Time Seen by Provider: 12/12/19 23:45 History of Present Illness HPI Narrative: Patient presents emergency department from home for migraine headache. Patient states symptoms began approximately 3 days ago. Pain is located diffuse throughout the head and consistent the patient's previous migraines. Associate with nausea. Patient states that he normally takes oxycodone 20 mg tablets which he last took 5 hours ago for his headache and states that he has to present to the emergency department normally requires Dilaudid for the pain. States he is followed by his PCP Dr. Craig for his migraines. He denies any fevers or chills vision changes chest pain shortness of breath or any other symptoms. Related Data Home Medications Medication Instructions Recorded Confirmed Levemir FlexTouch U-100 Insuln 40 unit SUBCUT BID 07/07/19 11/08/19 amlodipine 10 mg PO BID 07/07/19 11/08/19 lorazepam 1 mg PO BID PRN 07/07/19 11/08/19 metoprolol tartrate 50 mg PO Q12H 07/07/19 11/08/19 insulin aspart U-100 [Novolog 1 sliding scale dose SUBCUT 07/08/19 11/08/19 U-100 Insulin aspart] USEASDIRECTD oxycodone-acetaminophen 2 tablet PO Q5H PRN MDD 100 11/08/19 11/08/19 quetiapine [Seroquel] 50 mg PO HS 11/08/19 11/08/19 Allergies Allergy/AdvReac Type Severity Reaction Status Date / Time Sulfa (Sulfonamide Allergy Intermediate RASH Verified 11/29/19 21:35 Antibiotics) tramadol Allergy Intermediate INCREASED Verified 11/29/19 21:35 HEART BEAT prochlorperazine Allergy Unknown MENTAL Verified 11/29/19 21:35 STATUS CHANGES verapamil Allergy Unknown DYSTONIC Verified 11/29/19 21:35 REACTION metoclopramide [From Reglan] Allergy Other Verified 11/29/19 21:35 promethazine [From Phenergan] Allergy Other Verified 11/29/19 21:35 rosuvastatin AdvReac Intermediate ACHY, Verified 11/29/19 21:35 FATIGUE Review of Systems Review of Systems: Narrative: Gen.: Denies fevers or chills Eyes: Denies eye pain or visual change ENT: Denies congestion Respiratory: Denies shortness of breath or cough CV: Denies chest pain or palpitations GI: Denies abdominal pain emesis or diarrhea. 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 Large SDH after head trauma from a fall. 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
[2019-12-13] MEDS: ONDANSETRON INJ 4 MG/2 ML VIAL IV PUSH (00:22)
[2019-12-13] MEDS: SODIUM CHLORIDE 0.9% IV 1,000 ML 999 ML IV CONT (00:22)
--- NOTE | 2019-12-13 01:19 | PC.NURSE ---
Patient requesting to speak to the doctor. Dr. Lina hurt.
--- NOTE | 2019-12-13 01:24 | PC.NURSE ---
Patient's calls to get update on patient.
[2019-12-13 01:33] VITALS: RESP 18; O2SAT 97
== END 2019-12-13 02:16 | disposition home or self-care (01) ==
PROVIDERS: Emergency Provider Emergency Medicine; PCP Family Medicine Adolescent Medicine
DX: G43.909 Migraine, unspecified, not intractable, without status migrainosus (principal); D64.9 Anemia, unspecified; M19.90 Unspecified osteoarthritis, unspecified site; J45.909 Unspecified asthma, uncomplicated; I25.10 Atherosclerotic heart disease of native coronary artery without angina pectoris; I50.9 Heart failure, unspecified; I13.0 Hypertensive heart and chronic kidney disease with heart failure and stage 1 through stage 4 chronic kidney disease, or unspecified chronic kidney disease; E11.22 Type 2 diabetes mellitus with diabetic chronic kidney disease; N18.3 Chronic kidney disease, stage 3 (moderate); Z79.4 Long term (current) use of insulin; K21.9 Gastro-esophageal reflux disease without esophagitis; G47.30 Sleep apnea, unspecified; E11.42 Type 2 diabetes mellitus with diabetic polyneuropathy
CPT/HCPCS: 96361; 96374; 96375; 96376; 99284; J1170; J2405; J7030

== ENCOUNTER 2020-07-01 09:24 | Emergency (ER) | payer BC, SELFPAY ==
[2020-07-01] VITALS (7 sets, daily range): BP systolic 178–214; BP diastolic 80–125; PULSE 64–90; RESP 14–19; TEMP 36.7; O2SAT 99–100
--- NOTE | ~2020-07-01 | XR_ITS ---
EXAMINATION: XR chest 2V DATE: 07/01/2020 09:50 INDICATION: Chest pain TECHNIQUE: AP and lateral views of the chest are obtained. COMPARISON: 11/08/2019 FINDINGS: The lungs are free of acute opacities. There is no pleural effusion or pneumothorax. The ca rdiomediastinal silhouette is normal. There are bridging osteophytes at multiple levels in the spine, consistent with diffuse idiopathic skeletal hyperostosis (DISH). IMPRESSION: 1. No acute cardiopulmonary abnormality. Reviewed, dictated and finalized at location A. [facility] POL[facility]ER
--- NOTE | 2020-07-01 09:28 | ECG_ITS ---
Measurements Intervals [place] Rate: 88 P: 197 [place]: 291 QRS: 22 QRSD: 116 T: 81 QT: 392 QTc: 476 Interpretive Statements SINUS OR ECTOPIC ATRIAL RHYTHM WITH FIRST DEGREE AV BLOCK INTRAVENTRICULAR CONDUCTION DELAY BORDERLINE ST-T WAVE ABNORMALITY- HIGH LATERAL LEADS BASELINE ARTIFACT- I, AVR, AVL, V3 ABNORMAL ECG Electronically Signed On 07-01-2020 15:50:51 [employer] by Baljeet Borja D.O.
[2020-07-01] MEDS: ASPIRIN 81 MG CHEWABLE TABLET 324 MG PO (09:35)
[2020-07-01 09:44] LABS: Basophils Absolute Auto 0.1 K/mm3 (0.0-0.1); Basophils Percent Auto 0.7 % (0.2-1.2); Eosinophils Absolute Auto 0.4 K/mm3 (0-0.3); Eosinophils Percent Auto 4.8 % (0-4.4); Hematocrit 42.6 % (42.0-52.0); Hemoglobin 13.7 g/dL (14.0-18.0); Immature Granulocyte Absolute 0.01 K/mm3 (0.00-0.031); Immature Granulocyte Percent A 0.1 % (0-0.5); Lymphocytes Absolute Auto 1.84 K/mm3 (0.9-3.2); Lymphocytes Percent Auto 22.6 % (18.3-44.2); Mean Corpuscular HGB Conc 32.2 g/dl (32-36); Mean Corpuscular Hemoglobin 25.8 pg (26-34); Mean Corpuscular Volume 80.4 fl (80-100); Mean Platelet Volume 9.4 fl (7.4-10.4); Monocytes Absolute Auto 0.6 K/mm3 (0.1-0.6); Monocytes Percent Auto 7.9 % (2.6-8.5); Neutrophils Absolute Auto 5.2 K/mm3 (1.3-6.7); Neutrophils Percent Auto 63.9 % (45.5-73.1); Platelet Count Result 311 k/mm3 (150-375); Red Cell Distribution Width 15.7 % (11.5-14.5); White Blood Count 8.1 K/mm3 (4.5-10.0)
[2020-07-01 09:55] LABS: Anion Gap 7 mmol/L (8-16); Blood Urea Nitrogen 17 mg/dL (9-20); Calcium 9.1 mg/dL (8.4-10.2); Carbon Dioxide 31 mmol/L (22-30); Chloride 100 mmol/L (98-107); Estimated CRCL calculation 70 ml/min; Estimated Glomerular Filt Rate > 60; Glucose 435 mg/dL (75-110); Potassium 3.1 mmol/L (3.4-5.0); Sodium 138 mmol/L (137-145)
[2020-07-01 09:59] LABS: INR 1.1; Prothrombin Time 14.4 Seconds (11.1-14.7)
[2020-07-01 10:07] LABS: Troponin I < 0.012 ng/mL (0.000-0.034)
[2020-07-01] MEDS: MORPHINE SULFATE (*CRX) 4 MG/ML INJ IV PUSH ×2 (10:19→12:03)
[2020-07-01] MEDS: ONDANSETRON INJ 4 MG/2 ML VIAL IV PUSH (10:29)
[2020-07-01] MEDS: ONDANSETRON INJ 4 MG/2 ML VIAL (10:36)
--- NOTE | 2020-07-01 12:35 | ED.CHESTPAIN ---
HPI - Chest Pain General Chief Complaint: Chest Pain Stated Complaint: CP HX OF ANGINA Time Seen by Provider: 07/01/20 09:30 Source: patient Mode of arrival: ambulatory History of Present Illness HPI narrative: 64-year-old with a history of Prinzmetal angina, hypertension, hyperlipidemia, diabetes here with complaints of having headache since this morning. Patient stated he had chest pressure took a nitro which relieved the pain however now developed intense headache. Denied any shortness of breath, nausea or vomiting. MD complaint: chest heaviness Pertinent past history: coronary artery disease Onset (ago): hour(s) (4) Timing of current episode: episodic Onset: during rest Pain location: left chest Pain radiation: none Severity: moderate Quality: heaviness Relieving factors: nitroglycerin Exacerbating factors: nothing Associated symptoms: other (headache) Risk Factors Coronary artery disease risk factors: diabetes, hyperlipidemia, hypertension and family history of CAD before age 50 Related Data Home Medications Medication Instructions Recorded Confirmed Levemir FlexTouch U-100 Insuln 40 unit SUBCUT BID 07/07/19 11/08/19 amlodipine 10 mg PO BID 07/07/19 11/08/19 lorazepam 1 mg PO BID PRN 07/07/19 11/08/19 metoprolol tartrate 50 mg PO Q12H 07/07/19 11/08/19 insulin aspart U-100 [Novolog 1 sliding scale dose SUBCUT 07/08/19 11/08/19 U-100 Insulin aspart] USEASDIRECTD oxycodone-acetaminophen 2 tablet PO Q5H PRN MDD 100 11/08/19 11/08/19 quetiapine [Seroquel] 50 mg PO HS 11/08/19 11/08/19 Allergies Allergy/AdvReac Type Severity Reaction Status Date / Time Sulfa (Sulfonamide Allergy Intermediate RASH Verified 11/29/19 21:35 Antibiotics) tramadol Allergy Intermediate INCREASED Verified 11/29/19 21:35 HEART BEAT prochlorperazine Allergy Unknown MENTAL Verified 11/29/19 21:35 STATUS CHANGES verapamil Allergy Unknown DYSTONIC Verified 11/29/19 21:35 REACTION metoclopramide [From Reglan] Allergy Other Verified 11/29/19 21:35 promethazine [From Phenergan] Allergy Other Verified 11/29/19 21:35 rosuvastatin AdvReac Intermediate ACHY, Verified 11/29/19 21:35 FATIGUE Review of Systems Review of Systems: All systems reviewed & are unremarkable except as noted in HPI and below Constitutional: Constitutional: Reports no additional constitutional complaints Eyes: Eyes: Reports no additional eye complaints ENT: Reports system reviewed and no additional complaints, except as documented Cardiovascular: Cardiovascular: Reports as per HPI Respiratory: Respiratory: Reports no additional respiratory complaints Gastrointestinal: Gastrointestinal: Reports no additional gastrointestinal complaints Musculoskeletal: Musculoskeletal: Reports no additional musculoskeletal complaints Neurologic: Reports system reviewed and no additional complaints, except as documented Psychiatric: Psychiatric: Reports no additional psychiatric complaints [facility] Past Medical History Medical History (Updated 07/01/20 @ 12:56 by Doc Leyva MD) Anemia Anxiety Arthritis Asthma Back fracture Bulging discs CAD (coronary artery disease) CHF (congestive heart failure) Chronic back pain Chronic kidney disease, stage 3 With baseline creatinine between 1.2 and 1.5 Coronary artery disease CVA (cerebral vascular accident) 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 Large
[2020-07-01 12:54] LABS: Troponin I < 0.012 ng/mL (0.000-0.034)
[2020-07-01] MEDS: POTASSIUM CHLORIDE 20 MEQ PACKET (FOR LIQUID) 40 MEQ PO (13:01)
== END 2020-07-01 13:10 | disposition home or self-care (01) ==
PROVIDERS: Emergency Provider Family Medicine; PCP Family Medicine Adolescent Medicine
DX: R51.9 Headache, unspecified (principal); E11.65 Type 2 diabetes mellitus with hyperglycemia; I25.119 Atherosclerotic heart disease of native coronary artery with unspecified angina pectoris; E87.6 Hypokalemia; E78.5 Hyperlipidemia, unspecified; D64.9 Anemia, unspecified; M19.90 Unspecified osteoarthritis, unspecified site; J45.909 Unspecified asthma, uncomplicated; I25.10 Atherosclerotic heart disease of native coronary artery without angina pectoris; E11.22 Type 2 diabetes mellitus with diabetic chronic kidney disease; I13.0 Hypertensive heart and chronic kidney disease with heart failure and stage 1 through stage 4 chronic kidney disease, or unspecified chronic kidney disease; N18.30 Chronic kidney disease, stage 3 unspecified; I50.9 Heart failure, unspecified; Z79.4 Long term (current) use of insulin; Z86.73 Personal history of transient ischemic attack (TIA), and cerebral infarction without residual deficits; F03.90 Unspecified dementia, unspecified severity, without behavioral disturbance, psychotic disturbance, mood disturbance, and anxiety; F32.9 Major depressive disorder, single episode, unspecified; F41.9 Anxiety disorder, unspecified; K21.9 Gastro-esophageal reflux disease without esophagitis; E11.42 Type 2 diabetes mellitus with diabetic polyneuropathy; E11.51 Type 2 diabetes mellitus with diabetic peripheral angiopathy without gangrene; Z95.5 Presence of coronary angioplasty implant and graft; Z96.653 Presence of artificial knee joint, bilateral; I45.9 Conduction disorder, unspecified; I44.0 Atrioventricular block, first degree; R94.31 Abnormal electrocardiogram [ECG] [EKG]
CPT/HCPCS: 36415; 71046; 80048; 84484; 85025; 85610; 85730; 93005; 96374; 96375; 96376; 99284; A9270; J2270; J2405

== ENCOUNTER 2020-09-12 03:05 | Emergency (ER) | payer BC, SELFPAY ==
--- NOTE | ~2020-09-12 | CT_ITS ---
EXAMINATION: CT brain wo con DATE: 09/12/2020 04:02 INDICATION: Headache. TECHNIQUE: Computed tomography (CT) of the head was performed without intravenous contrast. The mA wa s adjusted according to patient size. Iterative reconstruction technique was employed. The dose-lengt h product was 756.67 mGy-cm. COMPARISON: Head CT 11/08/2019 FINDINGS: There is a small old infarct in left frontal lobe. There are scattered areas of low attenua tion in the cerebral white matter. There is no intracranial hemorrhage, acute infarction, or abnormal intracranial mass lesion. The ventricles are normal in size. There is mucosal thickening in the para nasal sinuses with sclerosis of the westfall of the right maxillary sinus, consistent chronic sinusitis. The orbits are normal. The mastoid air cells are normal. IMPRESSION: 1. Old infarct in left frontal lobe. 2. Stable mild nonspecific cerebral white matter disease, which likely represents chronic small vesse l ischemic disease. 3. Chronic sinusitis. Reviewed, dictated and finalized at location A. IMPRESSION: 1. Old infarct in left frontal lobe. 2. Stable mild nonspecific cerebral white matter disease, which likely represen ts chronic small vessel ischemic disease. 3. Chronic sinusitis.
[2020-09-12 03:08] VITALS: BP 209/105; PULSE 91; RESP 16; TEMP 36.5; O2SAT 100
--- NOTE | 2020-09-12 03:43 | ED.HA ---
HPI - Headache General Chief Complaint: Headache Stated Complaint: migraine Time Seen by Provider: 09/12/20 03:42 Source: patient Mode of arrival: ambulatory Limitations: no limitations History of Present Illness HPI Narrative: Patient is a 64-year-old male complaining of migraine headache, throbbing, 7 out of 10, started yesterday. Patient states that he has a history of migraines and this is his typical migraine headache. Patient denies any speech or visual disturbance, weakness, numbness, or unsteady gait. Patient denies any neck pain or stiffness. Patient denies any fever or rash. Patient states that he takes oxycodone at home for his headaches. Patient claims that he usually gets 2 mg of Dilaudid and IV Zofran for his migraine headaches. Related Data Home Medications Medication Instructions Recorded Confirmed Levemir FlexTouch U-100 Insuln 46 unit SUBCUT BID 07/07/19 11/08/19 amlodipine 10 mg PO BID 07/07/19 11/08/19 lorazepam 1 mg PO BID PRN 07/07/19 11/08/19 insulin aspart U-100 [Novolog 1 sliding scale dose SUBCUT 07/08/19 11/08/19 U-100 Insulin aspart] USEASDIRECTD oxycodone-acetaminophen 2 tablet PO Q5H PRN MDD 100 11/08/19 11/08/19 clopidogrel 09/12/20 Allergies Allergy/AdvReac Type Severity Reaction Status Date / Time Sulfa (Sulfonamide Allergy Intermediate RASH Verified 09/12/20 04:43 Antibiotics) tramadol Allergy Intermediate INCREASED Verified 09/12/20 04:43 HEART BEAT prochlorperazine Allergy Unknown MENTAL Verified 09/12/20 04:43 STATUS CHANGES verapamil Allergy Unknown DYSTONIC Verified 09/12/20 04:43 REACTION metoclopramide [From Reglan] Allergy Other Verified 09/12/20 04:43 promethazine [From Phenergan] Allergy Other Verified 09/12/20 04:43 rosuvastatin AdvReac Intermediate ACHY, Verified 09/12/20 04:43 FATIGUE Review of Systems Review of Systems: All systems reviewed & are unremarkable except as noted in HPI and below Constitutional: Constitutional: Denies body ache(s), Denies chills, Denies excessive sweating, Denies fatigue, Denies fever(s), Denies headache(s), Denies lethargy, Denies malaise, Denies weakness and Denies weight loss Eyes: Eyes: Denies blurry vision, Denies change in vision and Denies loss of vision ENT: Denies dizziness, Denies ear discharge, Denies headache(s), Denies lip swelling, Denies epistaxis, Denies nasal congestion, Denies neck pain, Denies throat swelling and Denies tongue swelling Cardiovascular: Cardiovascular: Denies chest pain, Denies chest pain at rest, Denies chest pain with activity, Denies diaphoresis, Denies rapid heart rate, Denies edema, Denies irregular heart rhythm, Denies lightheadedness, Denies palpitations, Denies dyspnea and Denies dyspnea on exertion Respiratory: Respiratory: Denies chest congestion, Denies cough, Denies hemoptysis, Denies dyspnea and Denies dyspnea on exertion Gastrointestinal: Gastrointestinal: Denies abdominal pain, Denies melena, Denies hematochezia, Denies diarrhea, Denies nausea, Denies vomiting and Denies hematemesis Musculoskeletal: Musculoskeletal: Denies abnormal gait, Denies deformity, Denies joint swelling, Denies limited range of motion, Denies neck pain and Denies numbness Neurologic: Denies Abnormal speech present, Denies abnormal gait, Denies confusion, Denies dizziness, Denies focal weakness, Denies loss of vision, Denies numbness, Denies Other visual disturbances, Denies Sensory deficit (Neuro) and Denies weakness Psychiatric: Psychiatric: Denies confusion, Denies depression, Denies auditory hallucinations, Denies homicidal ideation and Denies suicidal ideation Endocrine: Endocrine: Denies cold intolerance, Denies excessive sweating, Denies fatigue, Denies heat intolerance and Denies palpitations Hematologic/Lymphatic: Hematologic/Lymphatic: Denies easy bleeding and Denies easy bruising Allergic/Immunologic: Allergic/Immunologic: Denies lip swelling, Denies throat swelling and Denies
--- NOTE | 2020-09-12 03:45 | ECG_ITS ---
Measurements Intervals [place] Rate: 82 P: -58 [place]: 309 QRS: -5 QRSD: 117 T: 81 QT: 377 QTc: 442 Interpretive Statements SINUS RHYTHM WITH MARKED FIRST DEGREE AV BLOCK INTRAVENTRICULAR CONDUCTION DELAY CANNOT RULE OUT SEPTAL INFARCT, AGE INDETERMINATE NONSPECIFIC T-WAVE ABNORMALITY- HIGH LATERAL LEADS ABNORMAL ECG Electronically Signed On 09-12-2020 6:51:12 CDT by Baljeet Borja D.O.
[2020-09-12 04:38] LABS: Basophils Absolute Auto 0.1 K/mm3 (0.0-0.1); Basophils Percent Auto 0.6 % (0.2-1.2); Eosinophils Absolute Auto 0.4 K/mm3 (0-0.3); Eosinophils Percent Auto 4.3 % (0-4.4); Hematocrit 41.2 % (42.0-52.0); Hemoglobin 13.4 g/dL (14.0-18.0); Immature Granulocyte Absolute 0.03 K/mm3 (0.00-0.031); Immature Granulocyte Percent A 0.3 % (0-0.5); Lymphocytes Absolute Auto 2.34 K/mm3 (0.9-3.2); Lymphocytes Percent Auto 24.3 % (18.3-44.2); Mean Corpuscular HGB Conc 32.5 g/dl (32-36); Mean Corpuscular Hemoglobin 25.9 pg (26-34); Mean Corpuscular Volume 79.5 fl (80-100); Mean Platelet Volume 9.6 fl (7.4-10.4); Monocytes Absolute Auto 0.8 K/mm3 (0.1-0.6); Monocytes Percent Auto 8.4 % (2.6-8.5); Neutrophils Percent Auto 62.1 % (45.5-73.1); Platelet Count Result 253 k/mm3 (150-375); Red Blood Count 5.18 M/mm3 (4.6-6.20); Red Cell Distribution Width 15.2 % (11.5-14.5); White Blood Count 9.6 K/mm3 (4.5-10.0)
[2020-09-12] MEDS: HYDROmorphone HCL INJ (*CRX) 1 MG/ML SYR 0.5 MG IV PUSH (04:42)
[2020-09-12 04:58] LABS: Anion Gap 8 mmol/L (8-16); Blood Urea Nitrogen 21 mg/dL (9-20); Calcium 9.6 mg/dL (8.4-10.2); Carbon Dioxide 28 mmol/L (22-30); Chloride 98 mmol/L (98-107); Estimated CRCL calculation 60 ml/min; Estimated Glomerular Filt Rate 51; Glucose 474 mg/dL (75-110); Potassium 4.4 mmol/L (3.4-5.0); Sodium 134 mmol/L (137-145)
[2020-09-12 05:00] VITALS: BP 161/94; PULSE 84; RESP 18; O2SAT 98
--- NOTE | 2020-09-12 05:00 | PC.NURSE ---
Pt up sitting near doors in the chairs, tapping his cane. States this is where he is most comfortable. Refuses to go back to bed. States he normally gets 2mg of dilaudid, one round of zofran , and something that makes it last . Asked patient if he is experiencing nausea and he denies any. Explained we will continue to monitor. Pt's bp appears to be decreasing, but pt had removed himself from the monitor.
[2020-09-12 05:09] LABS: Troponin I < 0.012 ng/mL (0.000-0.034)
[2020-09-12] MEDS: HYDROcodone/acetaminophen (*CRX) 5-325 MG TABLET 1 TAB PO (06:19)
[2020-09-12] MEDS: LACTATED RINGERS 1,000 ML 999 ML IV CONT (06:20)
[2020-09-12] MEDS: KETOROLAC 30 MG/ML VIAL (*BKC) IV PUSH (06:21)
[2020-09-12 06:27] VITALS: BP 180/99; PULSE 72; O2SAT 100
[2020-09-12 06:31] VITALS: BP 155/83; PULSE 76; O2SAT 99
[2020-09-12 06:46] VITALS: BP 168/89; PULSE 73; O2SAT 100
--- NOTE | 2020-09-12 06:50 | PC.NURSE ---
Called to patient room. Pt is standing at the side of the bed, removing his IV. States it's pretty clear he isn't giving me anything else, or more dilaudid for my pain. Why should I waste my time? IV removed cath intact and pt refuses a bandage.
[2020-09-12] MEDS: INSULIN HUMAN REGULAR (*BKC) 100 UNITS/ML 10 UNITS SUB-Q (06:51)
== END 2020-09-12 06:55 | disposition home or self-care (01) ==
PROVIDERS: Emergency Provider Emergency Medicine; PCP Family Medicine Adolescent Medicine
DX: G43.909 Migraine, unspecified, not intractable, without status migrainosus (principal); E11.65 Type 2 diabetes mellitus with hyperglycemia; Z79.4 Long term (current) use of insulin; D64.9 Anemia, unspecified; F41.9 Anxiety disorder, unspecified; M19.90 Unspecified osteoarthritis, unspecified site; J45.909 Unspecified asthma, uncomplicated; I25.10 Atherosclerotic heart disease of native coronary artery without angina pectoris; I11.0 Hypertensive heart disease with heart failure; I50.9 Heart failure, unspecified; K21.9 Gastro-esophageal reflux disease without esophagitis; G47.30 Sleep apnea, unspecified; F32.9 Major depressive disorder, single episode, unspecified; G89.29 Other chronic pain
CPT/HCPCS: 36415; 70450; 80048; 84484; 85025; 93005; 96374; 96375; 99284; A9270; J1170; J1815; J1885; J7120

== ENCOUNTER 2020-09-15 22:18 | Inpatient (IN) | payer BC, SELFPAY ==
--- NOTE | ~2020-09-15 | XR_ITS ---
EXAMINATION: XR chest 1V INDICATION: Transient alteration of awareness TECHNIQUE: AP view of the chest is obtained. COMPARISON: 07/01/2020 FINDINGS: There are minimal opacities of the lung bases. No pleural effusion or pneumothorax is ident ified. The cardiomediastinal silhouette is normal. IMPRESSION: 1. Minimal bibasilar airspace opacities, consistent with atelectasis versus pneumonia. Reviewed, dictated and finalized at location A. IMPRESSION: 1. Minimal bibasilar airspace opacities, consistent with atelectasis versus pne umonia.
--- NOTE | ~2020-09-15 | CT_ITS ---
EXAMINATION: CT brain wo con INDICATION: Transient alteration of awareness COMPARISON: 09/12/2020 TECHNIQUE: Standard unenhanced head CT. The dose-length product (DLP) was 681.00 mGy-cm. The mA was a djusted according to patient size. Iterative reconstruction technique was employed. FINDINGS: There is no acute intraparenchymal hemorrhage. No evidence of mass lesion. No evidence of a cute infarction. An old infarct is again noted in the left frontal lobe. There is mild periventricula r and subcortical hypodensity probably related to small vessel ischemic disease. There is mild promin ence of the sulci and ventricles related to cerebral atrophy. Intracranial calcified cerebral atheros clerosis is noted. There are no extra-axial collections. There is no mass effect or midline shift. Th e orbits and soft tissues are unremarkable. There is unchanged opacification of the right frontal si nus and ethmoidal air cells. IMPRESSION: 1. Old infarct of the left frontal lobe without acute intracranial abnormality. 2. Age related findings. Reviewed, dictated and finalized at location A.
--- NOTE | ~2020-09-15 | US_ITS ---
EXAMINATION: US renal BI EXAM DATE: 09/16/2020 11:34 INDICATION: Acute kidney insufficiency. TECHNIQUE: Multiple grayscale and Doppler images of the kidneys were obtained (by a technologist who performed the scan) and subsequently reviewed. Comparison is made to prior examination from 10/31/2018 . FINDINGS: Right kidney: There is normal contour and echogenicity. It measures 9.4 x 5.6 x 4.9 centimeters. Th ere are no focal renal lesions identified. There is no hydronephrosis. Left kidney: There is normal contour and echogenicity. It measures 10.8 x 6.1 x 4.6 centimeters. Th ere are no focal renal lesions identified. There is no hydronephrosis. Bladder is mildly distended, with mildly diffusely thickened wall could indicate chronic cystitis. Pr ostate was measured, mildly enlarged at 4.8 x 4.3 x 3.8 cm. IMPRESSION: 1. Sonographically unremarkable kidneys. 2. Bladder wall thickening, could indicate chronic cystitis. 3. Mild prostatomegaly. Reviewed, dictated and finalized at location A.
--- NOTE | 2020-09-15 22:22 | ECG_ITS ---
Measurements Intervals [place] Rate: 99 P: [place]: 0 QRS: 19 QRSD: 108 T: 71 QT: 355 QTc: 457 Interpretive Statements ECTOPIC ATRIAL RHYTHM VENTRICULAR PREMATURE COMPLEXES ABNORMAL ECG Electronically Signed On 09-16-2020 7:51:58 CDT by Baljeet Borja D.O.
[2020-09-15 22:26] LABS: Glucose Point of Care 334 (65-105)
[2020-09-15 22:27] VITALS: BP 188/109; PULSE 106; RESP 18; TEMP 36.7; O2SAT 100
--- NOTE | 2020-09-15 22:36 | ED.GENADULT ---
HPI - General Adult General Chief complaint: Overdose Stated complaint: oxy od Time Seen by Provider: 09/15/20 22:33 Source: RN notes reviewed History of Present Illness HPI narrative: Patient presents to emergency department from home via EMS for oxycodone overdose. The patient takes oxycodone 20 mg tablets for chronic back pain he is allowed to take up to 5/day. Per the patient as well as the patient's he took 4 tablets this evening because his back was hurting worse. Following this the patient became combative and called EMS and the patient was given Narcan improvement of his combativeness. The patient is currently awake alert x3 but is sleepy in room. Per the the patient had a similar combative episode earlier today patient denies any recent illness denies any fevers or chills chest pain shortness of breath or any other symptoms. EMS gave the patient 2 mg of intranasal Narcan upon their initial arrival with improvement of the patient's combativeness Related Data Home Medications Medication Instructions Recorded Confirmed Levemir FlexTouch U-100 Insuln 46 unit SUBCUT BID 07/07/19 11/08/19 amlodipine 10 mg PO BID 07/07/19 11/08/19 lorazepam 1 mg PO BID PRN 07/07/19 11/08/19 insulin aspart U-100 [Novolog 1 sliding scale dose SUBCUT 07/08/19 11/08/19 U-100 Insulin aspart] USEASDIRECTD oxycodone-acetaminophen 2 tablet PO Q5H PRN MDD 100 11/08/19 11/08/19 clopidogrel 09/12/20 Allergies Allergy/AdvReac Type Severity Reaction Status Date / Time Sulfa (Sulfonamide Allergy Intermediate RASH Verified 09/12/20 04:43 Antibiotics) tramadol Allergy Intermediate INCREASED Verified 09/12/20 04:43 HEART BEAT prochlorperazine Allergy Unknown MENTAL Verified 09/12/20 04:43 STATUS CHANGES verapamil Allergy Unknown DYSTONIC Verified 09/12/20 04:43 REACTION metoclopramide [From Reglan] Allergy Other Verified 09/12/20 04:43 promethazine [From Phenergan] Allergy Other Verified 09/12/20 04:43 rosuvastatin AdvReac Intermediate ACHY, Verified 09/12/20 04:43 FATIGUE Review of Systems Review of Systems: Narrative: Gen.: Denies fevers or chills Eyes: Denies eye pain or visual change ENT: Denies congestion Respiratory: Denies shortness of breath or cough CV: Denies chest pain or palpitations GI: Denies abdominal pain nausea, emesis or diarrhea Musculoskeletal: Reports chronic back pain Neuro: Denies numbness, tingling, weakness or focal weakness Skin: Denies rash Except as documented, all other systems reviewed and negative [facility] Past Medical History Medical History (Updated 09/16/20 @ 01:28 by Quintin Mills DO) Anemia Anxiety Arthritis Asthma Back fracture Bulging discs CAD (coronary artery disease) CHF (congestive heart failure) Chronic back pain Chronic kidney disease, stage 3 With baseline creatinine between 1.2 and 1.5 Coronary artery disease CVA (cerebral vascular accident) 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 Large SDH after head trauma from a fall. 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
[2020-09-15 23:00] LABS: Add Urine Microscopic? YES; Appearance Urine Clear (Clear); Bilirubin Urine Negative (Negative); Blood Urine 1+ (Negative); Color Urine Yellow (Yellow); Glucose Urine UA 3+ mg/dL (Negative); Ketones Urine Negative (Negative); Leukocyte Esterase Ur Negative LEU/UL (Negative); Mucus Urine Rare /lpf; Nitrate Urine Negative (Negative); Protein Urine 2+ mg/dL (Negative); RBC Urine 21-50 /hpf (0-2); Specific Grav Ur 1.013 (1.001-1.035); Squamous Epithelial Cell Urine Rare /hpf (Few); Urobilinogen Urine Negative mg/dL (<2.0); WBC Urine 0-3 /hpf
[2020-09-15 23:05] LABS: Alanine Aminotransferase 21 U/L (4-50); Albumin Level 4.3 g/dL (3.5-5.1); Alkaline Phosphatase 164 U/L (38-126); Anion Gap 9 mmol/L (8-16); Aspartate Amino Transferase 31 U/L (17-59); Bilirubin,Total 0.5 mg/dL (0.2-1.3); Blood Urea Nitrogen 39 mg/dL (9-20); Calcium 9.4 mg/dL (8.4-10.2); Carbon Dioxide 27 mmol/L (22-30); Chloride 96 mmol/L (98-107); Estimated CRCL calculation 41 ml/min; Estimated Glomerular Filt Rate 32; Glucose 371 mg/dL (75-110); INR 1.1; Potassium 4.8 mmol/L (3.4-5.0); Prothrombin Time 14.3 Seconds (11.1-14.7); Sodium 132 mmol/L (137-145)
[2020-09-15 23:06] LABS: Partial Thromboplastin Time 34.3 SECONDS (22.3-36.8)
[2020-09-15 23:07] LABS: Acetaminophen < 10 ug/mL (10-30)
[2020-09-15 23:08] LABS: Basophils Absolute Auto 0.1 K/mm3 (0.0-0.1); Basophils Percent Auto 0.5 % (0.2-1.2); Eosinophils Absolute Auto 0.5 K/mm3 (0-0.3); Eosinophils Percent Auto 5.1 % (0-4.4); Hematocrit 36.3 % (42.0-52.0); Hemoglobin 11.3 g/dL (14.0-18.0); Immature Granulocyte Absolute 0.02 K/mm3 (0.00-0.031); Immature Granulocyte Percent A 0.2 % (0-0.5); Lymphocytes Absolute Auto 1.78 K/mm3 (0.9-3.2); Lymphocytes Percent Auto 19.2 % (18.3-44.2); Mean Corpuscular HGB Conc 31.1 g/dl (32-36); Mean Corpuscular Hemoglobin 25.6 pg (26-34); Mean Corpuscular Volume 82.1 fl (80-100); Mean Platelet Volume 9.8 fl (7.4-10.4); Monocytes Absolute Auto 0.9 K/mm3 (0.1-0.6); Monocytes Percent Auto 9.7 % (2.6-8.5); Neutrophils Percent Auto 65.3 % (45.5-73.1); Platelet Count Result 258 k/mm3 (150-375); Red Blood Count 4.42 M/mm3 (4.6-6.20); Red Cell Distribution Width 15.3 % (11.5-14.5); White Blood Count 9.3 K/mm3 (4.5-10.0)
[2020-09-15 23:09] LABS: Ethanol < 10 mg/dL (<10)
[2020-09-15 23:15] LABS: Amphetamine Screen Urine Negative (Negative); Barbiturate Screen Urine Negative (Negative); Benzodiazepines Screen Urine Negative (Negative); Cannabinoid Screen Urine Negative (Negative); Cocaine Screen Urine Negative (Negative); Methadone Screen Urine Negative (Negative); Opiate Screen Urine Positive (Negative); Phencyclidine Screen Urine Negative (Negative)
[2020-09-15] MEDS: SODIUM CHLORIDE 0.9% IV 1,000 ML 999 ML IV CONT (23:21)
[2020-09-15 23:27] VITALS: RESP 16
[2020-09-16] VITALS (17 sets, daily range): BP systolic 106–167; BP diastolic 59–97; PULSE 53–101; RESP 11–24; TEMP 36.2–36.8; O2SAT 93–100; BMI 29.7
[2020-09-16] MEDS: NALOXONE HCL 0.4 MG/ML VIAL ×2 (00:29→00:33)
[2020-09-16 00:42] LABS: Alveolar/Arterial O2 Gradient 11.3 mmHg; Base Excess ABG -5.7 mEq/l (+/-2.0); Device ROOM AIR; Fractional Inspired Oxygen 21 %; HCO3 ABG 18.5 mEq/l (22.0-26.0); Modified Allen's Test Pass; Oxygen Content ABG 16.9 %vol (16.0-22.0); Oxygen Saturation ABG 97.5 % (95.0-100.0); Oxyhemoglobin 96.2 % THb (90.0-100.0); PCO2 ABG 32.2 mmHg (35.0-45.0); PO2 ABG 99.9 mmHg (80.0-100.0); PO2 FiO2 Ratio Arterial Blood 4.76 %; Site Drawn RIGHT RADIAL; Total Hemoglobin 12.4 g/dL (12.0-18.0); pH ABG 7.377 (7.350-7.450)
[2020-09-16] MEDS: INSULIN DETEMIR 100 UNITS/ML 46 UNITS SUB-Q ×3 (00:47→21:12)
[2020-09-16] MEDS: SODIUM CHLORIDE 0.9% IV 1,000 ML 125 ML IV CONT ×3 (01:14→18:33)
--- NOTE | 2020-09-16 01:18 | PC.NURSE ---
Approx midnight pt with increasing restlessness and agitation. Pt not easily redirected. at bedside. Pt attempting to stand up and is unsteady. With assistance of other staff pt is assisted back into bed and pt with much force attempts to get out of bed. EDP at bedside and orders IV Narcan to be administered. After Narcan pt calms and is will follow commands.
--- NOTE | 2020-09-16 02:00 | ADMGEN ---
This patient, Mark Anthony Westfall Jr., was admitted to Intensive Care Unit-2. Patient/family oriented to hospital policies and general routines including ID bracelet, bed and alarms, visiting hours, pain management, procedures, bathroom and other care routines, personal items, smoking policy, room service/diet, and visiting hours. Information on how to activate the Rapid Response Team has been discussed. Patient/Family are encouraged to report perceived risks to care and to ask questions if they do not understand what they are told or what they should do.
--- NOTE | 2020-09-16 02:18 | PM.IMHP ---
H&P: HPI History of Present Illness Date/Time: 09/16/20 02:18 Chief Complaint: Oxycodone overdose Narrative: 64-year-old male with a past medical history chronic pain syndrome, insulin-dependent diabetes, coronary artery disease, chronic kidney disease, prior CVA, and traumatic brain injury who presented to the ER after overdose on oxycodone. Source of information is ER records and past medical records. Patient is only oriented to self. The patient has a long history of poor memory due to prior CVA and traumatic brain injury 2019 at which time he had a subdural hematoma. The patient's reported to the ER staff that the patient takes 5 tablets of oxycodone a day. As the patient has had issues with taking too many narcotics in the past he is only getting 7 days worth of the medication from his primary care physician. However somehow the patient got 2 weeks of his medication at once after he had already finished his 7 days of medication early. The patient had 70 tablets of oxycodone filled on the and now only has 14 tablets left. The patient's rough reports that any time the patient overdoses on his medications he actually becomes agitated and combative. She given Narcan early in the day on the but then ran out Narcan doses. She has had to use Narcan several times over the last several months. The reports that she has to sleep on a cot by his recliner because the patient will not sleep in bed anymore. If she does not sleep by his recliner the patient will get up and wander to the neighbor's house and make inappropriate sounds and stand outside the neighbor's window scare them. When EMS arrived to the patient's home the patient was quite agitated and received 2 mg of Narcan. After Narcan the patient was alert and cooperative. Reportedly on arrival to the ER the patient was alert orient x3 after intranasal Narcan and progressively throughout his ER stay became more disgruntled moaning and yelling with frequent movements of his arms and legs. He was scratching at his head and face as well as his abdomen. He had left restless leg movements. He became combative and was attempting to get out of bed and yelling more loudly. Patient was restrained back in bed by numerous staff members. He received a 2nd dose of Narcan of 0.4 and immediately became calm and cooperative and reportedly alert oriented x4. The patient never became somnolent her apneic. The patient has not been taking his Levemir and it appears he may not have been taking his other medications as directed. He has not been eating or drinking well. His states that she can no longer capable of caring for him at home. At the time of my evaluation the patient alert and oriented to self. He was again restless and had been argumentative with staff. After they increases Narcan drip patient eventually agreed to get back in bed. I have requested that the patient Narcan drip again be increased up to 0.4. The patient is currently cooperative but extremely restless. 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
--- NOTE | 2020-09-16 03:44 | PHAR ---
Drug Name: oxyCODONE HCl Ingredients: Oxycodone Hydrochloride -- 20 MG Related Documents: DRUGDEX Evaluations - OXYCODONE Color: White to Off-White Shape: [place] Imprint: 20 , R P Form: Oral Tablet #16 BROUGHT FROM HOME
--- NOTE | 2020-09-16 03:46 | PHAR ---
Drug Name: LORazepam Ingredients: Lorazepam -- 1 MG Related Documents: DRUGDEX Evaluations - LORAZEPAM Color: white Shape: [place] Imprint: [place]; 241; 1 , Noel Weisso; 241; 1 #3 BROUGHT FROM HOME
[2020-09-16 04:28] LABS: Hematocrit 33.2 % (42.0-52.0); Mean Corpuscular HGB Conc 33.1 g/dl (32-36); Mean Corpuscular Hemoglobin 26.2 pg (26-34); Mean Platelet Volume 9.1 fl (7.4-10.4); Platelet Count Result 252 k/mm3 (150-375); Red Cell Distribution Width 15.2 % (11.5-14.5); White Blood Count 9.3 K/mm3 (4.5-10.0)
[2020-09-16 04:43] LABS: Anion Gap 6 mmol/L (8-16); Blood Urea Nitrogen 35 mg/dL (9-20); Calcium 8.9 mg/dL (8.4-10.2); Carbon Dioxide 28 mmol/L (22-30); Chloride 100 mmol/L (98-107); Creatine Kinase 128 U/L (55-170); Estimated CRCL calculation 47 ml/min; Estimated Glomerular Filt Rate 38; Glucose 328 mg/dL (75-110); Potassium 4.6 mmol/L (3.4-5.0); Sodium 134 mmol/L (137-145)
[2020-09-16 04:44] LABS: Hemoglobin A1C 12.8 % (<5.7)
[2020-09-16 07:35] LABS: Glucose Point of Care 276 (65-105)
--- NOTE | 2020-09-16 08:31 | WPDCNINT ---
Assessment and Plan Assessment and plan (1) Opioid overdose: Qualifiers: Encounter type: initial encounter Injury intent: accidental or unintentional Qualified Code(s): T40.2X1A - Poisoning by other opioids, accidental (unintentional), initial encounter Code(s): T40.2X1A - Poisoning by other opioids, accidental (unintentional), initial encounter Status: Acute Assessment and Plan: It appears the patient's symptoms were secondary to oxycodone overdose. Although his symptoms were not classicall opioid overdose, symptoms like irritability dysphoria insomnia anxiety agitation as adverse effects of oxycodone Patient seems to have improved with Narcan and is currently on Narcan infusion Will try to wean down Narcan infusion today and monitor patient off Narcan Eventually a different opioid can be started on p.r.n. basis at lower dose for his chronic back pain instead of oxycodone which has been causing all the side effects Patient would benefit from neurology and psychiatry evaluation Currently has one-to-one sitter (2) Acute kidney injury superimposed on CKD: Code(s): N17.9 - Acute kidney failure, unspecified; N18.9 - Chronic kidney disease, unspecified Status: Acute Assessment and Plan: Likely prerenal from dehydration CK level was normal Improving with IV fluids Continue normal saline Check renal ultrasound (3) Type 2 diabetes mellitus with hyperglycemia: Qualifiers: Diabetes mellitus custodial insulin use: with intermediate school teacher use Qualified Code(s): E11.65 - Type 2 diabetes mellitus with hyperglycemia; Z79.4 - assisted (current) use of insulin Code(s): E11.65 - Type 2 diabetes mellitus with hyperglycemia Status: Acute Assessment and Plan: Continue Levemir and sliding scale (4) Wound of right foot: Code(s): S91.301A - Unspecified open wound, right foot, initial encounter Status: Acute Assessment and Plan: I am not sure how good patient is at taking care of his wounds. Consult wound care Will discuss with his (5) Seizure: Code(s): R56.9 - Unspecified convulsions Status: Acute Assessment and Plan: Continue Keppra (6) Hypertension: Qualifiers: Hypertension type: essential hypertension Qualified Code(s): I10 - Essential (primary) hypertension Code(s): I10 - Essential (primary) hypertension Status: Acute Assessment and Plan: Continue Norvasc hold hydrochlorothiazide Add p.r.n. labetalol and hydralazine Ict Security Specialist Consult Note Consult date: 09/16/20 Time Seen: 08:00 HPI: Mark Anthony Westfall Jr. is a 64 year old male with a past medical history chronic pain syndrome, insulin-dependent diabetes, coronary artery disease, chronic kidney disease, prior CVA, and traumatic brain injury who presented to the ER after overdose on oxycodone. Source of information is physician sign-out and medical records. The patient has a long history of poor memory due to prior CVA and traumatic brain injury 2019 at which time he had a subdural hematoma. The patient's reported to the ER staff that the patient takes 5 tablets of oxycodone a day which he admitted to me this morning. As the patient has had issues with taking too many narcotics in the past he is only getting 7 days worth of the medication from his primary care physician. However somehow the patient got 2 weeks of his medication at once after he had already finished his 7 days of medication early. The patient had 70 tablets of oxycodone filled on the and had only 14 tablets left yesterday. The patient's reported that any time the patient overdoses on his medications he actually becomes agitated and combative. She given Narcan early in the day on the but then ran out Narcan doses. She has had to use Narcan several times over the last several months. The reports that she has to sleep on a cot by his recliner because the patient will n
[2020-09-16] MEDS: amLODIPine BESYLATE 5 MG TABLET 10 MG PO (08:59)
[2020-09-16] MEDS: ASPIRIN 325 MG ENTERIC TABLET PO (08:59)
[2020-09-16] MEDS: METOPROLOL TARTRATE 50 MG TAB BY MOUTH ×2 (08:59→21:11)
[2020-09-16] MEDS: levETIRAcetam 500 MG TABLET 1500 MG PO ×2 (09:00→21:11)
[2020-09-16] MEDS: INSULIN ASPART (*BKC) 100 UNITS/ML SUB-Q ×2 (09:00→12:08)
[2020-09-16] MEDS: ENOXAPARIN 40 MG/0.4 ML SYRINGE SUB-Q (11:43)
[2020-09-16 11:55] LABS: Glucose Point of Care 206 (65-105)
--- NOTE | 2020-09-16 12:16 | PM.IMPN ---
Progress Note: A&P Assessment and Plan (1) Opioid overdose: Qualifiers: Encounter type: initial encounter Injury intent: accidental or unintentional Qualified Code(s): T40.2X1A - Poisoning by other opioids, accidental (unintentional), initial encounter Code(s): T40.2X1A - Poisoning by other opioids, accidental (unintentional), initial encounter Status: Acute Assessment and Plan: Pt receiving Narcan drip and iv fluids (2) Acute kidney injury superimposed on CKD: Code(s): N17.9 - Acute kidney failure, unspecified; N18.9 - Chronic kidney disease, unspecified Status: Acute Assessment and Plan: PT having renal us and UO monitored, Creat is 1.8, pt receiving fluids (3) Type 2 diabetes mellitus with hyperglycemia: Qualifiers: Diabetes mellitus rat exterminator insulin use: with residential use Qualified Code(s): E11.65 - Type 2 diabetes mellitus with hyperglycemia; Z79.4 - custodial (current) use of insulin Code(s): E11.65 - Type 2 diabetes mellitus with hyperglycemia Status: Acute Assessment and Plan: ACCUCHECKS, SSI sugars are in the 300s (4) Dementia: Qualifiers: Dementia type: vascular dementia Dementia behavioral disturbance: with behavioral disturbance Qualified Code(s): F01.51 - Vascular dementia with behavioral disturbance Code(s): F03.90 - Unspecified dementia without behavioral disturbance Status: Acute Assessment and Plan: Took 70 oxycodone history of dementia and traumatic brain injury, lives with his . Denies suidical attempt or ideation. Subjective Date/time seen: 09/16/20 12:16 Review of Systems Review of Systems: All systems reviewed & are unremarkable except as noted in HPI and below Exam Narrative: Exam Narrative: General: Disheveled Respiratory: Clear to auscultation bilaterally Cardiovascular: RRR Gastrointestinal: Soft, nontender, nondistended, positive bowel sounds Skin: Patient has large healing abrasions to bilateral knees Musculoskeletal: No clubbing, cyanosis or edema Neurological: Alert and oriented to person only, speech is clear, cranial nerves 2-12 are nl Psychiatric: Calm but tired Objective Data Vital Signs Vital Signs: Vital Signs - 24 hr 09/15/20 22:27 09/15/20 23:27 09/16/20 00:10 Temperature 36.7 C Pulse Rate 106 H 88 Respiratory Rate 18 16 18 Blood Pressure 188/109 H 144/90 H Pulse Oximetry 100 98 09/16/20 00:42 09/16/20 01:21 09/16/20 01:42 Temperature Pulse Rate 100 90 86 Respiratory Rate 18 18 18 Blood Pressure 157/78 H 164/89 H 157/88 H Pulse Oximetry 100 99 100 09/16/20 02:00 09/16/20 04:00 09/16/20 06:00 Temperature 36.6 C Pulse Rate 101 H 90 85 Respiratory Rate 12 16 16 Blood Pressure 155/88 H 162/78 H 167/96 H Pulse Oximetry 96 98 98 09/16/20 08:00 09/16/20 10:00 Temperature 36.8 C Pulse Rate 85 75 Respiratory Rate 23 H 15 Blood Pressure 162/91 H Pulse Oximetry 99 93 Intake/Output Intake/Output: Intake & Output 09/13/20 09/14/20 09/15/20 09/16/20 23:59 23:59 23:59 23:59 Intake Total 2360 Output Total 1775 Balance 585 Meds/Results Medications: Active Medications Generic Name Dose Route Start Last Admin Trade Name Freq PRN Reason Stop Dose Admin Amlodipine Besylate 10 mg 09/16/20 09:00 09/16/20 08:59 Amlodipine Besylate 5 Mg Tablet PO 10 mg DAILY LUANA Administration Aspirin 325 mg 09/16/20 09:00 09/16/20 08:59 Aspirin 325 Mg Enteric Tablet PO 325 mg QAM LUANA Administration Dextrose 12.5 gm 09/16/20 03:58 Dextrose 50% 25 Gm/50 Ml Syringe IV PUSH PRN PRN Hypoglycemia Protocol Enoxaparin Sodium 40 mg 09/16/20 09:00 09/16/20 11:43 Enoxaparin 40 Mg/0.4 Ml Syringe SUB-Q 40 mg DAILY LUANA Administration Glucagon 1 mg 09/16/20 03:58 Glucagon For Inj 1 Mg Vial IM PRN PRN Hypoglycemia Protocol Glucose 15 gm 09/16/20
[2020-09-16 16:26] LABS: Glucose Point of Care 95 (65-105)
[2020-09-16 21:01] LABS: Glucose Point of Care 167 (65-105)
[2020-09-16] MEDS: PRAVASTATIN SODIUM 20 MG TABLET 40 MG PO (21:12)
[2020-09-16] MEDS: QUEtiapine FUMARATE 100 MG TABLET PO (21:12)
[2020-09-16] MEDS: LORazepam (*CRX) 0.5 MG TABLET PO (22:43)
[2020-09-17] VITALS (11 sets, daily range): BP systolic 114–180; BP diastolic 71–115; PULSE 47–74; RESP 11–20; TEMP 35.5–36.6; O2SAT 95–100
[2020-09-17] MEDS: SODIUM CHLORIDE 0.9% IV 1,000 ML 125 ML IV CONT (00:22)
[2020-09-17 04:31] LABS: Basophils Percent Auto 0.6 % (0.2-1.2); Eosinophils Absolute Auto 0.4 K/mm3 (0-0.3); Eosinophils Percent Auto 5.4 % (0-4.4); Hematocrit 36.6 % (42.0-52.0); Hemoglobin 11.5 g/dL (14.0-18.0); Immature Granulocyte Absolute 0.02 K/mm3 (0.00-0.031); Immature Granulocyte Percent A 0.3 % (0-0.5); Lymphocytes Percent Auto 19.3 % (18.3-44.2); Mean Corpuscular HGB Conc 31.4 g/dl (32-36); Mean Corpuscular Hemoglobin 25.8 pg (26-34); Mean Corpuscular Volume 82.2 fl (80-100); Mean Platelet Volume 9.3 fl (7.4-10.4); Monocytes Absolute Auto 0.8 K/mm3 (0.1-0.6); Monocytes Percent Auto 11.6 % (2.6-8.5); Neutrophils Absolute Auto 4.6 K/mm3 (1.3-6.7); Neutrophils Percent Auto 62.8 % (45.5-73.1); Platelet Count Result 303 k/mm3 (150-375); Red Blood Count 4.45 M/mm3 (4.6-6.20); Red Cell Distribution Width 15.4 % (11.5-14.5); White Blood Count 7.2 K/mm3 (4.5-10.0)
[2020-09-17 05:01] LABS: Alanine Aminotransferase 16 U/L (4-50); Albumin Level 3.7 g/dL (3.5-5.1); Alkaline Phosphatase 127 U/L (38-126); Anion Gap 6 mmol/L (8-16); Aspartate Amino Transferase 28 U/L (17-59); Bilirubin,Total 0.2 mg/dL (0.2-1.3); Blood Urea Nitrogen 28 mg/dL (9-20); Calcium 8.6 mg/dL (8.4-10.2); Carbon Dioxide 26 mmol/L (22-30); Chloride 110 mmol/L (98-107); Estimated CRCL calculation 60 ml/min; Estimated Glomerular Filt Rate 51; Glucose 43 mg/dL (75-110); Potassium 3.4 mmol/L (3.4-5.0); Sodium 142 mmol/L (137-145)
[2020-09-17] MEDS: DEXTROSE 50% 25 GM/50 ML SYRINGE IV PUSH (05:06)
[2020-09-17 05:11] LABS: Glucose Point of Care 44 (65-105)
[2020-09-17 05:30] LABS: Glucose Point of Care 128 (65-105)
[2020-09-17] MEDS: KCL 20 MEQ/0.45% NS 1,000 ML 75 ML IV CONT (08:17)
--- NOTE | 2020-09-17 08:24 | WPDINTPN ---
Progress Note: A&P Assessment and Plan (1) Opioid overdose: Qualifiers: Encounter type: initial encounter Injury intent: accidental or unintentional Qualified Code(s): T40.2X1A - Poisoning by other opioids, accidental (unintentional), initial encounter Code(s): T40.2X1A - Poisoning by other opioids, accidental (unintentional), initial encounter Status: Acute Assessment and Plan: It appears the patient's symptoms were secondary to oxycodone overdose. Although his symptoms were not classical opioid overdose, symptoms like irritability dysphoria insomnia anxiety agitation as adverse effects of oxycodone Patient seems to have improved and has been off of Narcan infusion since yesterday Will try to wean down Narcan infusion today and monitor patient off Narcan Will start p.r.n. analgesic for his back pain Patient would benefit from pain management and psychiatry referral as an outpatient (2) Acute kidney injury superimposed on CKD: Code(s): N17.9 - Acute kidney failure, unspecified; N18.9 - Chronic kidney disease, unspecified Status: Acute Assessment and Plan: Likely prerenal from dehydration CK level was normal Improving with IV fluids Decrease IV fluids Reviewed renal ultrasound (3) Hypoglycemia: Code(s): E16.2 - Hypoglycemia, unspecified Status: Acute Assessment and Plan: Episode of hypoglycemia overnight. Patient is on home dose of Levemir and sliding scale. This may be due to different diet in the hospital. I will cut down Levemir does to 35 units q.12 hours and skip morning dose this morning Patient will be placed on D5 half-normal saline at this time to prevent further hypoglycemia and will be tapered off as his sugars improved (4) Type 2 diabetes mellitus with hyperglycemia: Qualifiers: Diabetes mellitus snf insulin use: with oil heaterman use Qualified Code(s): E11.65 - Type 2 diabetes mellitus with hyperglycemia; Z79.4 - detention (current) use of insulin Code(s): E11.65 - Type 2 diabetes mellitus with hyperglycemia Status: Acute Assessment and Plan: Continue Levemir and sliding scale (5) Wound of right foot: Code(s): S91.301A - Unspecified open wound, right foot, initial encounter Status: Acute Assessment and Plan: I am not sure how good patient is at taking care of his wounds. Consult wound care (6) Seizure: Code(s): R56.9 - Unspecified convulsions Status: Acute Assessment and Plan: Continue Dariusz (7) Hypertension: Qualifiers: Hypertension type: essential hypertension Qualified Code(s): I10 - Essential (primary) hypertension Code(s): I10 - Essential (primary) hypertension Status: Acute Assessment and Plan: Continue Norvasc and metoprolol. His heart rate is in 40s when he is sleeping. Will cut down metoprolol dose to 25 hold hydrochlorothiazide Add p.r.n. labetalol and hydralazine Additional Plan DVT prophylaxis -Lovenox Code Status - Full Code I spoke to patient's yesterday and she said it has been very difficult taking care of him as he continues to take medications whenever and however he wants. He often gets aggressive confused sometime drowsy after taking his pills. He often runs around out of the house and sometime is even crawling on his knees which explains the average ins on his knees. She feels the patient needs to see a psychiatrist. She and the patient both deny any suicidal homicidal ideations or attempts in the past. I will also consult social media senior associate to assess home situation. Patient otherwise can be transferred out of ICU today Subjective Date/time seen: 09/17/20 0730 Overnight events reviewed. Patient had episode of hypoglycemia this morning which was treated with dextrose 50. He otherwise feels better and states his back pain is better. Denies any new complaints. He has been off of Narcan fusion since yesterd
[2020-09-17] MEDS: POTASSIUM CHLORIDE 20 MEQ TABLET 40 MEQ PO (09:10)
[2020-09-17] MEDS: METOPROLOL TARTRATE 25 MG TABLET BY MOUTH ×2 (09:11→20:45)
[2020-09-17] MEDS: ASPIRIN 325 MG ENTERIC TABLET PO (09:11)
[2020-09-17] MEDS: amLODIPine BESYLATE 5 MG TABLET 10 MG PO (09:11)
[2020-09-17] MEDS: levETIRAcetam 500 MG TABLET 1500 MG PO ×2 (09:11→20:44)
[2020-09-17] MEDS: ENOXAPARIN 40 MG/0.4 ML SYRINGE SUB-Q (09:12)
--- NOTE | 2020-09-17 11:35 | PM.IMPN ---
Progress Note: A&P Assessment and Plan (1) Opioid overdose: Qualifiers: Encounter type: initial encounter Injury intent: accidental or unintentional Qualified Code(s): T40.2X1A - Poisoning by other opioids, accidental (unintentional), initial encounter Code(s): T40.2X1A - Poisoning by other opioids, accidental (unintentional), initial encounter Status: Acute Assessment and Plan: Pt receiving Narcan drip and iv fluids off both now. can be transferee to her medical floor for observation of bp (2) Acute kidney injury superimposed on CKD: Code(s): N17.9 - Acute kidney failure, unspecified; N18.9 - Chronic kidney disease, unspecified Status: Acute Assessment and Plan: PT having renal us and UO monitored, Creat is beter today at 1.4 oral hydration adviced. (3) Type 2 diabetes mellitus with hyperglycemia: Qualifiers: Diabetes mellitus computer terminal operator insulin use: with correction use Qualified Code(s): E11.65 - Type 2 diabetes mellitus with hyperglycemia; Z79.4 - computer terminal operator (current) use of insulin Code(s): E11.65 - Type 2 diabetes mellitus with hyperglycemia Status: Acute Assessment and Plan: ACCUCHECKS, SSI sugars, DM diet (4) Dementia: Qualifiers: Dementia behavioral disturbance: with behavioral disturbance Dementia type: vascular dementia Qualified Code(s): F01.51 - Vascular dementia with behavioral disturbance Code(s): F03.90 - Unspecified dementia without behavioral disturbance Status: Acute Assessment and Plan: Took 70 oxycodone history of dementia and traumatic brain injury, lives with his . Denies suidical attempt or ideation. Additional Plan Hopeful discharge tomorrow. Patient has been admitted as observation status. Subjective Date/time seen: 09/17/20 11:35 Interval history: 64-year-old male with a past medical history chronic pain syndrome, insulin-dependent diabetes, coronary artery disease, chronic kidney disease, prior CVA, and traumatic brain injury. Her for oxycodone overdose. doing better bp slightly high otherwise no specific problems not confused not tired. Review of Systems Review of Systems: All systems reviewed & are unremarkable except as noted in HPI and below Exam Narrative: Exam Narrative: General: comfortable Gastrointestinal: Soft, nontender, nondistended, positive bowel sounds Skin: Patient has large healing abrasions to bilateral knees Musculoskeletal: No clubbing, cyanosis or edema Neurological: Alert and oriented to person only, speech is clear, cranial nerves 2-12 are nl, normal movements Psychiatric: Calm but tired Objective Data Vital Signs Vital Signs: Vital Signs - 24 hr 09/16/20 12:00 09/16/20 14:00 09/16/20 16:00 Temperature 36.2 C L 36.2 C L Pulse Rate 71 72 65 Respiratory Rate 24 H 18 11 L Blood Pressure 106/77 130/67 143/80 H Pulse Oximetry 97 98 98 09/16/20 18:00 09/16/20 20:00 09/16/20 21:11 Temperature 36.3 C L Pulse Rate 63 75 80 Respiratory Rate 15 11 L Blood Pressure 133/78 113/59 L Pulse Oximetry 100 100 09/16/20 22:00 09/16/20 23:54 09/17/20 00:00 Temperature Pulse Rate 66 53 L 53 L Respiratory Rate 18 16 Blood Pressure 119/97 H 118/67 Pulse Oximetry 100 98 09/17/20 00:23 09/17/20 02:00 09/17/20 04:00 Temperature 36.1 C L Pulse Rate 57 L 55 L Respiratory Rate 18 20 Blood Pressure 140/75 129/72 Pulse Oximetry 97 95 09/17/20 06:00 09/17/20 08:00 Temperature 35.5 C L Pulse Rate 48 L 52 L Respiratory Rate 18 11 L Blood Pressure 114/71 180/115 H Pulse Oximetry 96 100 Intake/Output Intake/Output: Intake & Output 09/14/20 09/15/20 09/16/20 09/17/20 23:59 23:59 23:59 23:59 Intake Total 4140 1640 Output Total 2975 1250 Balance 1165 390 Meds/Results Medications: Active Medications Generic Name Dose Route Start Last Admin Trade Name Freq PRN Reason Stop Dose Admin Acetaminophe
[2020-09-17 12:19] LABS: Glucose Point of Care 197 (65-105)
--- NOTE | 2020-09-17 15:15 | PC.NURSE ---
This patient, Mark Anthony Westfall Jr., was transferred to [facility] on 09/17/20 at 1525. Personal belongings sent with patient. Report given to Vicente. Appropriate documentation sent with patient.
--- NOTE | 2020-09-17 15:32 | PC.NURSE ---
This patient, Mark Anthony Aide Westfall Jr., was received from [ICU] on 09/17/20 at 1525. Patient/family oriented to unit policies and routines
[2020-09-17 16:55] LABS: Glucose Point of Care 155 (65-105)
[2020-09-17] MEDS: QUEtiapine FUMARATE 100 MG TABLET PO (20:45)
[2020-09-17] MEDS: PRAVASTATIN SODIUM 20 MG TABLET 40 MG PO (20:45)
[2020-09-17] MEDS: INSULIN DETEMIR 100 UNITS/ML 35 UNITS SUB-Q (20:47)
[2020-09-17 21:20] LABS: Glucose Point of Care 244 (65-105)
[2020-09-18] VITALS: PULSE 57
[2020-09-18 04:00] VITALS: PULSE 54
[2020-09-18 06:00] VITALS: BP 146/81; PULSE 63; RESP 18; TEMP 36.2; O2SAT 100
[2020-09-18 06:17] LABS: Hematocrit 35.9 % (42.0-52.0); Hemoglobin 11.2 g/dL (14.0-18.0); Mean Corpuscular HGB Conc 31.2 g/dl (32-36); Mean Corpuscular Hemoglobin 25.7 pg (26-34); Mean Corpuscular Volume 82.5 fl (80-100); Mean Platelet Volume 9.4 fl (7.4-10.4); Platelet Count Result 313 k/mm3 (150-375); Red Blood Count 4.35 M/mm3 (4.6-6.20); Red Cell Distribution Width 15.6 % (11.5-14.5); White Blood Count 5.8 K/mm3 (4.5-10.0)
[2020-09-18 07:36] LABS: Alanine Aminotransferase 14 U/L (4-50); Albumin Level 3.5 g/dL (3.5-5.1); Alkaline Phosphatase 109 U/L (38-126); Anion Gap 6 mmol/L (8-16); Aspartate Amino Transferase 28 U/L (17-59); Bilirubin,Total 0.2 mg/dL (0.2-1.3); Blood Urea Nitrogen 24 mg/dL (9-20); Calcium 8.8 mg/dL (8.4-10.2); Carbon Dioxide 24 mmol/L (22-30); Chloride 112 mmol/L (98-107); Estimated CRCL calculation 70 ml/min; Estimated Glomerular Filt Rate > 60; Glucose 119 mg/dL (75-110); Magnesium 1.9 mg/dL (1.6-2.3); Potassium 4.1 mmol/L (3.4-5.0); Sodium 142 mmol/L (137-145)
[2020-09-18 08:00] VITALS: PULSE 67
[2020-09-18] MEDS: INSULIN DETEMIR 100 UNITS/ML 35 UNITS SUB-Q (08:18)
[2020-09-18] MEDS: ENOXAPARIN 40 MG/0.4 ML SYRINGE SUB-Q (08:20)
[2020-09-18] MEDS: ASPIRIN 325 MG ENTERIC TABLET PO (08:20)
[2020-09-18] MEDS: levETIRAcetam 500 MG TABLET 1500 MG PO (08:20)
[2020-09-18] MEDS: amLODIPine BESYLATE 5 MG TABLET 10 MG PO (08:21)
[2020-09-18 08:22] VITALS: PULSE 68
[2020-09-18] MEDS: METOPROLOL TARTRATE 25 MG TABLET BY MOUTH (08:22)
[2020-09-18 08:23] LABS: Glucose Point of Care 81 (65-105)
[2020-09-18] MEDS: SILVERGEL (ELTA) 45 ML 1 APPLIC TOPICAL (10:37)
[2020-09-18 12:00] VITALS: PULSE 61
[2020-09-18 12:01] LABS: Glucose Point of Care 134 (65-105)
--- NOTE | 2020-09-18 12:47 | PM.DS ---
DS: Admitting Diagnosis Admitting Diagnosis Admitting Diagnosis: OXYCODONE OVERDOSE DS: Discharge Diagnosis Discharge Diagnosis (1) Opioid overdose: Qualifiers: Encounter type: initial encounter Injury intent: accidental or unintentional Qualified Code(s): T40.2X1A - Poisoning by other opioids, accidental (unintentional), initial encounter Code(s): T40.2X1A - Poisoning by other opioids, accidental (unintentional), initial encounter Status: Acute Assessment and Plan: Pt received Narcan drip and iv fluids off both now. Bp has corrected. Pt is stable for dischrage (2) Acute kidney injury superimposed on CKD: Code(s): N17.9 - Acute kidney failure, unspecified; N18.9 - Chronic kidney disease, unspecified Status: Acute Assessment and Plan: PT had renal US which showed -1. Sonographically unremarkable kidneys. 2. Bladder wall thickening, could indicate chronic cystitis. 3. Mild prostatomegaly. Creat is better today at 1.2 oral hydration advised. (3) Type 2 diabetes mellitus with hyperglycemia: Qualifiers: Diabetes mellitus intermediate accountant insulin use: with alf use Qualified Code(s): E11.65 - Type 2 diabetes mellitus with hyperglycemia; Z79.4 - prison (current) use of insulin Code(s): E11.65 - Type 2 diabetes mellitus with hyperglycemia Status: Acute Assessment and Plan: Continue DM diet (4) Dementia: Qualifiers: Dementia type: vascular dementia Dementia behavioral disturbance: with behavioral disturbance Qualified Code(s): F01.51 - Vascular dementia with behavioral disturbance Code(s): F03.90 - Unspecified dementia without behavioral disturbance Status: Acute Assessment and Plan: Took 70 oxycodone history of dementia and traumatic brain injury, lives with his . Denies suicidal attempt or ideation. to watch at home, important to keep medications safe, to give out his medications to him. DS: Summary Hospital Course Hospital Course: 64-year-old male with a past medical history chronic pain syndrome, insulin-dependent diabetes, coronary artery disease, chronic kidney disease, prior CVA, and traumatic brain injury. Her for oxycodone overdose. Pt is doing better bp slightlyis normal now, otherwise no specific problems not confused not tired. Time Spent with Patient Time attestation: Total time spent providing and/or coordinating discharge services:40 minutes on day of discharge Exam Narrative: Exam Narrative: General: comfortable Gastrointestinal: Soft, nontender, nondistended, positive bowel sounds Skin: Patient has large healing abrasions to bilateral knees Musculoskeletal: No clubbing, cyanosis or edema Neurological: Alert and oriented to person only, speech is clear, cranial nerves 2-12 are nl, normal movements Psychiatric: Calm but tired DS: Data Data Completed and Pending Labs on day of discharge: Labs from last 24 hours 09/18/20 09/18/20 09/18/20 11:54 07:47 05:59 WBC RBC Hgb Hct MCV MCH MCHC RDW Plt Count MPV Sodium 142 Potassium 4.1 Chloride 112 H Carbon Dioxide 24 Anion Gap 6 L BUN 24 H Creatinine 1.20 Estim Creat Clear Calc 70 Estimated GFR > 60 Glucose 119 H POC Capillary Glucose 134 H 81 Calcium 8.8 Magnesium 1.9 Total Bilirubin 0.2 AST 28 ALT 14 Alkaline Phosphatase 109 Total Protein 8.0 Albumin 3.5 09/18/20 09/17/20 09/17/20 05:59 20:43 16:53 WBC 5.8 RBC 4.35 L Hgb 11.2 L Hct 35.9 L MCV 82.5 MCH 25.7 L MCHC 31.2 L RDW 15.6 H Plt Count 313 MPV 9.4 Sodium Potassium Chloride Carbon Dioxide Anion Gap BUN Creatinine Estim Creat Clear Calc Estimated GFR Glucose POC Capillary Glucose 244 H 155 H Calcium Magnesium Total Bilirubin AST ALT Alkaline Phosphatase
== END 2020-09-18 13:58 | disposition home or self-care (01) | DRG 918 ==
LOC: ANHED 22:53 → ANHICU 09-16 01:24 → ANH3MEDSUR 09-18 12:47 → ANHICU 09-20 13:15
PROVIDERS: Internal Medicine; Admitting Provider Internal Medicine; Emergency Provider Emergency Medicine; PCP Family Medicine Adolescent Medicine; Visit Provider Family Medicine
DX: T40.2X1A Poisoning by other opioids, accidental (unintentional), initial encounter (principal); N17.9 Acute kidney failure, unspecified; I13.0 Hypertensive heart and chronic kidney disease with heart failure and stage 1 through stage 4 chronic kidney disease, or unspecified chronic kidney disease; I50.32 Chronic diastolic (congestive) heart failure; E87.1 Hypo-osmolality and hyponatremia; G40.89 Other seizures; E11.65 Type 2 diabetes mellitus with hyperglycemia; N18.30 Chronic kidney disease, stage 3 unspecified; E11.51 Type 2 diabetes mellitus with diabetic peripheral angiopathy without gangrene; E11.42 Type 2 diabetes mellitus with diabetic polyneuropathy; G89.4 Chronic pain syndrome; I25.10 Atherosclerotic heart disease of native coronary artery without angina pectoris; F03.90 Unspecified dementia, unspecified severity, without behavioral disturbance, psychotic disturbance, mood disturbance, and anxiety; K21.9 Gastro-esophageal reflux disease without esophagitis; E78.5 Hyperlipidemia, unspecified; M48.00 Spinal stenosis, site unspecified; G47.33 Obstructive sleep apnea (adult) (pediatric); M19.90 Unspecified osteoarthritis, unspecified site; D64.9 Anemia, unspecified; F41.8 Other specified anxiety disorders; E11.22 Type 2 diabetes mellitus with diabetic chronic kidney disease; S91.301A Unspecified open wound, right foot, initial encounter; X58.XXXA Exposure to other specified factors, initial encounter; Z96.653 Presence of artificial knee joint, bilateral; Z87.820 Personal history of traumatic brain injury; Z86.73 Personal history of transient ischemic attack (TIA), and cerebral infarction without residual deficits; Z79.4 Long term (current) use of insulin; I25.2 Old myocardial infarction; Z95.5 Presence of coronary angioplasty implant and graft; Z90.49 Acquired absence of other specified parts of digestive tract
CPT/HCPCS: 36415; 36600; 70450; 71045; 76775; 80048; 80053; 80307; 81001; 82550; 82805; 82948; 83036; 83735; 85025; 85027; 85610; 85730; 93005; 96361; 96365; 96366; 96376; 99285; A9270; G0378; J1650; J1815; J2310; J7030; J7050

== ENCOUNTER 2021-01-29 20:15 | Observation (INO) | payer BC, OTHER, SELFPAY ==
--- NOTE | ~2021-01-29 | CT_ITS ---
EXAMINATION: CT brain wo con DATE: 01/29/2021 22:22 INDICATION: Confusion, progressive nodes, combativeness 3 days TECHNIQUE: Computed tomography (CT) of the head was performed without intravenous contrast. The mA wa s adjusted according to patient size. Iterative reconstruction technique was employed. Exam dose: 75 6.67 mGy-cm total exam DLP. COMPARISON: 09/25/2020 CT brain FINDINGS: Examination is limited by motion artifact. Bilateral vertebral artery calcification and bilateral carotid siphon internal carotid artery calcifi cation. No intracranial mass lesion or hemorrhage or cerebrovascular accident is evident. No midline shift or mass effect effect. No subdural or epidural hematoma is detected. No fracture or bone destruction of the cranial vault. There is partial opacification of the right frontal sinus and ethmoid air cells. Right nasal antral w indow. The maxillary and sphenoid sinuses are clear. Mastoid air cells are normally developed and aer ated. IMPRESSION: Cerebral atherosclerosis No acute intracranial abnormality is identified Reviewed, dictated and finalized at [facility] Reviewed, dictated and finalized at [facility].
[2021-01-29 20:21] VITALS: BP 198/122; PULSE 87; RESP 16; TEMP 36.8; O2SAT 99
[2021-01-29] MEDS: LORazepam INJ (*CRX) 2 MG/ML VIAL IV PUSH (21:45)
--- NOTE | 2021-01-29 22:28 | ED.AMS ---
HPI - Altered Mental Status General Chief Complaint: Altered Mental Status Stated Complaint: OD? Time Seen by Provider: 01/29/21 21:46 Source: patient Limitations: altered mental status History of Present Illness HPI narrative: Patient is a 65-year-old male brought in by EMS due to behavioral problems at home. According to a family member patient had been aggressive, hitting family members, nonsensical statements and words, which they attributed to polypharmacy. According to the family he acts like this when he has had too much pain medications, has had multiple episodes in the past. Patient uncooperative at this time, trying to get out of bed, agitated. Related Data Home Medications Medication Instructions Recorded Confirmed Levemir FlexTouch U-100 Insuln 46 unit SUBCUT BID 07/07/19 09/16/20 amlodipine 10 mg PO DAILY 07/07/19 09/16/20 lorazepam 1 mg PO BID PRN 07/07/19 09/16/20 insulin aspart U-100 [Novolog 1 sliding scale dose SUBCUT 07/08/19 09/16/20 U-100 Insulin aspart] USEASDIRECTD hydrochlorothiazide 50 mg PO DAILY 09/16/20 09/16/20 levetiracetam [Keppra] 1,500 mg PO BID 09/16/20 09/16/20 metoprolol tartrate 50 mg BYMOUTH BID 09/16/20 09/16/20 pravastatin 40 mg PO HS 09/16/20 09/16/20 quetiapine 100 mg PO HS 09/16/20 09/16/20 Allergies Allergy/AdvReac Type Severity Reaction Status Date / Time Sulfa (Sulfonamide Allergy Intermediate RASH Verified 09/12/20 04:43 Antibiotics) tramadol Allergy Intermediate INCREASED Verified 09/12/20 04:43 HEART BEAT prochlorperazine Allergy Unknown MENTAL Verified 09/12/20 04:43 STATUS CHANGES verapamil Allergy Unknown DYSTONIC Verified 09/12/20 04:43 REACTION azithromycin Allergy Flushing Verified 09/16/20 03:32 metoclopramide [From Reglan] Allergy Other Verified 09/12/20 04:43 promethazine [From Phenergan] Allergy Other Verified 09/12/20 04:43 rosuvastatin AdvReac Intermediate ACHY, Verified 09/12/20 04:43 FATIGUE Review of Systems Review of Systems: All systems reviewed & are unremarkable except as noted in HPI and below ROS unobtainable: Yes unobtainable due to mental status PMFSH Past Medical History Medical History Anemia Anxiety Arthritis Asthma Back fracture Bulging discs CAD (coronary artery disease) CHF (congestive heart failure) Chronic back pain Chronic kidney disease, stage 3 With baseline creatinine between 1.2 and 1.5 Coronary artery disease 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 Large SDH after head trauma from a fall. 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 PVD (peripheral vascular disease) Seasonal allergies Septic prepatellar bursitis of left knee MRSA September 2018 Shingles Spinal stenosis Spinal stenosis With history of herniated discs and stress fractures on chronic narcotic therapy Staph infection SVT (supraventricular tachycardia) With history of cardiac ablation in 2001 Surgical History Surgical History H/O cardiac radiofrequency ablation for SVT H/O excision of ganglion cyst H/O heart artery stent Placed in 2006 H/O nasal polypectomy H/O prior ablation treatment History of arthroscopic knee surgery Bilateral History of cardiac catheteri
[2021-01-29 22:34] VITALS: BP 122/69; PULSE 66; O2SAT 99
[2021-01-29 22:55] VITALS: BP 121/71; PULSE 67; RESP 12; O2SAT 95
[2021-01-29] MEDS: LACTATED RINGERS 1,000 ML 999 ML IV CONT (23:03)
[2021-01-29 23:29] LABS: Basophils Percent Auto 0.4 % (0.2-1.2); Eosinophils Absolute Auto 0.1 K/mm3 (0-0.3); Eosinophils Percent Auto 1.5 % (0-4.4); Hematocrit 31.7 % (42.0-52.0); Hemoglobin 9.8 g/dL (14.0-18.0); Immature Granulocyte Absolute 0.03 K/mm3 (0.00-0.031); Immature Granulocyte Percent A 0.3 % (0-0.5); Lymphocytes Absolute Auto 1.17 K/mm3 (0.9-3.2); Lymphocytes Percent Auto 12.9 % (18.3-44.2); Mean Corpuscular HGB Conc 30.9 g/dl (32-36); Mean Corpuscular Hemoglobin 25.3 pg (26-34); Mean Corpuscular Volume 81.9 fl (80-100); Mean Platelet Volume 9.6 fl (7.4-10.4); Monocytes Absolute Auto 0.9 K/mm3 (0.1-0.6); Monocytes Percent Auto 9.8 % (2.6-8.5); Neutrophils Absolute Auto 6.8 K/mm3 (1.3-6.7); Neutrophils Percent Auto 75.1 % (45.5-73.1); Platelet Count Result 283 k/mm3 (150-375); Red Blood Count 3.87 M/mm3 (4.6-6.20); Red Cell Distribution Width 16.4 % (11.5-14.5); White Blood Count 9.1 K/mm3 (4.5-10.0)
[2021-01-29 23:53] LABS: Alanine Aminotransferase 14 U/L (4-50); Albumin Level 3.9 g/dL (3.5-5.1); Alkaline Phosphatase 113 U/L (38-126); Anion Gap 9 mmol/L (8-16); Aspartate Amino Transferase 30 U/L (17-59); Bilirubin,Total 0.5 mg/dL (0.2-1.3); Blood Urea Nitrogen 49 mg/dL (9-20); Calcium 9.2 mg/dL (8.4-10.2); Carbon Dioxide 26 mmol/L (22-30); Chloride 105 mmol/L (98-107); Estimated CRCL calculation 32 ml/min; Estimated Glomerular Filt Rate 24; Glucose 52 mg/dL (65-110); Potassium 4.1 mmol/L (3.4-5.0); Sodium 140 mmol/L (137-145)
[2021-01-29 23:54] VITALS: PULSE 63; RESP 10; O2SAT 100
[2021-01-30] VITALS (40 sets, daily range): BP systolic 118–142; BP diastolic 71–79; PULSE 58–82; RESP 8–17; TEMP 37; O2SAT 98–100; BMI 26.0; BMI 30.7
[2021-01-30 00:02] LABS: Glucose Point of Care 48 mg/dl (65-105)
[2021-01-30] MEDS: DEXTROSE 50% 25 GM/50 ML SYRINGE IV PUSH ×2 (00:08→02:48)
[2021-01-30 00:47] LABS: Glucose Point of Care 117 mg/dl (65-105)
[2021-01-30 02:30] LABS: Glucose Point of Care 87 mg/dl (65-105)
[2021-01-30] MEDS: DEXTROSE 5%/0.45% SOD CHL 1,000 ML 100 ML IV CONT (02:49)
[2021-01-30 05:44] LABS: Glucose Point of Care 104 mg/dl (65-105)
[2021-01-30 07:33] LABS: Glucose Point of Care 98 mg/dl (65-105)
--- NOTE | 2021-01-30 10:37 | PC.NURSE ---
Clergy at bedside with patient.
--- NOTE | 2021-01-30 14:23 | ADMGEN ---
This patient, Mark Anthony Westfall Jr., was admitted to Virtual Bed 3rd Floor-3. Pt is still currently in the ED. Patient/family oriented to hospital policies and general routines including ID bracelet, bed and alarms, visiting hours, pain management, procedures, bathroom and other care routines, personal items, smoking policy, room service/diet, and visiting hours. Information on how to activate the Rapid Response Team has been discussed. Patient/Family are encouraged to report perceived risks to care and to ask questions if they do not understand what they are told or what they should do.
[2021-01-30] MEDS: SODIUM CHLORIDE 0.9% IV 1,000 ML 500 ML IV CONT (15:00)
[2021-01-30 15:51] LABS: Immature Reticulocyte Fraction 10.8 % (3.0-15.9); Reticulocyte Hemoglobin Conten 29.6 pg (28.2-35.7); Reticulocyte Percent 1.21 % (0.7-4.3); Reticulocytes Absolute 0.05 B/L (32.2-175.7)
[2021-01-30 16:05] LABS: Ethanol < 10 mg/dL (<10)
[2021-01-30 16:08] LABS: Iron 29 ug/dL (49-181)
[2021-01-30 16:21] LABS: Percent Iron Saturation 9 % (20-50)
[2021-01-30 16:30] LABS: Glucose Point of Care 219 mg/dl (65-105)
--- NOTE | 2021-01-30 16:51 | PM.IMHP ---
H&P: HPI History of Present Illness Date/Time: 01/30/21 16:51 Patient is a 65-year-old male with history of CAD, stroke, diabetes presenting with several months of episodic altered behavior. According to his , over the last few years he has had episodes where he becomes incredibly irate, and starts behaving erratically, and says things like he is having hallucinations. according to the , he does not remember these episodes, and does not except that he has been behaving erratically. Patient has on 1 occasion scared that he may become violent. At this point, patient's mentation is at baseline, and supports this. Patient denies homicidal or suicidal ideation, and is able to talk meaningfully and acknowledged that at times he behaves erratically. Of note, patient reports that during the episodes he has, he does not eat or drink very much, this is corroborated by his . Past medical history: CAD including stent in 2009 followed by reocclusion; stroke in 2016, seizure history Allergies: Several, including rash with sulfa drugs, hives and flushing with azithromycin Medications: 325 daily aspirin, Keppra 1500 b.i.d. p.r.n. Lasix occasional Ativan to help him sleep statin and insulin Family history: Diabetes and different types of cancers run in the family Social history: No drugs alcohol or tobacco Surgical history: Multiple surgeries on left knee, cardiac procedures, gallbladder is, all in the remote past ER course: Vitals: Generally unremarkable labs: Hemoglobin significant at 9.8 creatinine 2.7, glucose liver and hepatobiliary studies okay head CT showing no acute intracranial abnormality, chronic cerebral atherosclerosis Chief Complaint: brought in by for altered behavior Review of Systems Review of Systems: All systems reviewed & are unremarkable except as noted in HPI and below [facility] Past Medical History Medical History (Updated 01/30/21 @ 17:33 by Aure Reeves MD) Anemia Anxiety Arthritis Asthma Back fracture Bulging discs CAD (coronary artery disease) CAD (coronary artery disease) CHF (congestive heart failure) Chronic back pain Chronic kidney disease, stage 3 With baseline creatinine between 1.2 and 1.5 Coronary artery disease 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 Large SDH after head trauma from a fall. 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 PVD (peripheral vascular disease) Schizophreniform disorder Seasonal allergies Septic prepatellar bursitis of left knee MRSA September 2018 Shingles Spinal stenosis Spinal stenosis With history of herniated discs and stress fractures on chronic narcotic therapy Staph infection SVT (supraventricular tachycardia) With history of cardiac ablation in 2001 Surgical History Surgical History H/O cardiac radiofrequency ablation for SVT H/O excision of ganglion cyst H/O heart artery stent Placed in 2006 H/O nasal polypectomy H/O prior ablation treatment History of arthroscopic knee surgery Bilateral History of cardiac catheterization History of cardiac catheterization 2014 complicated by prizmetal's angina History of colonoscopy with polypectomy 2016 demonstrating internal hemorrhoids, external hemorrhoids and transverse colon polyp
[2021-01-30 17:21] LABS: Folic Acid 6.4 ng/mL (2.76->20)
--- NOTE | 2021-01-30 19:09 | PC.NURSE ---
report to rex teixeira.
[2021-01-30] MEDS: SODIUM CHLORIDE 0.9% IV 1,000 ML 100 ML IV CONT (19:13)
[2021-01-30 20:00] LABS: Glucose Point of Care 353 mg/dl (65-105)
[2021-01-30] MEDS: INSULIN ASPART (*BKC) 100 UNITS/ML SUB-Q (20:04)
[2021-01-30 20:32] LABS: Amphetamine Screen Urine Negative (Negative); Barbiturate Screen Urine Negative (Negative); Benzodiazepines Screen Urine Negative (Negative); Cannabinoid Screen Urine Negative (Negative); Cocaine Screen Urine Negative (Negative); Methadone Screen Urine Negative (Negative); Opiate Screen Urine Positive (Negative); Phencyclidine Screen Urine Negative (Negative)
[2021-01-30] MEDS: levETIRAcetam 500 MG TABLET 1500 MG PO (23:34)
[2021-01-30] MEDS: INSULIN GLARGINE (*BKC) 100 UNITS/ML 30 UNITS SUB-Q (23:38)
--- NOTE | 2021-01-31 01:37 | ADMGEN ---
This patient, Mark Anthony Westfall Jr., was admitted to Medical Room 246-01. Patient/family oriented to hospital policies and general routines including ID bracelet, bed and alarms, visiting hours, pain management, procedures, bathroom and other care routines, personal items, smoking policy, room service/diet, and visiting hours. Information on how to activate the Rapid Response Team has been discussed. Patient/Family are encouraged to report perceived risks to care and to ask questions if they do not understand what they are told or what they should do.
[2021-01-31 01:54] LABS: Glucose Point of Care 207 mg/dl (65-105)
[2021-01-31 05:27] LABS: Basophils Percent Auto 0.7 % (0.2-1.2); Eosinophils Absolute Auto 0.4 K/mm3 (0-0.3); Eosinophils Percent Auto 6.4 % (0-4.4); Hematocrit 33.9 % (42.0-52.0); Hemoglobin 10.3 g/dL (14.0-18.0); Immature Granulocyte Absolute 0.01 K/mm3 (0.00-0.031); Immature Granulocyte Percent A 0.2 % (0-0.5); Lymphocytes Absolute Auto 1.76 K/mm3 (0.9-3.2); Lymphocytes Percent Auto 31.3 % (18.3-44.2); Mean Corpuscular HGB Conc 30.4 g/dl (32-36); Mean Corpuscular Hemoglobin 25.4 pg (26-34); Mean Corpuscular Volume 83.5 fl (80-100); Mean Platelet Volume 9.7 fl (7.4-10.4); Monocytes Absolute Auto 0.6 K/mm3 (0.1-0.6); Monocytes Percent Auto 11.4 % (2.6-8.5); Neutrophils Absolute Auto 2.8 K/mm3 (1.3-6.7); Platelet Count Result 277 k/mm3 (150-375); Red Blood Count 4.06 M/mm3 (4.6-6.20); Red Cell Distribution Width 16.4 % (11.5-14.5); White Blood Count 5.6 K/mm3 (4.5-10.0)
[2021-01-31 05:45] LABS: Alanine Aminotransferase 14 U/L (4-50); Albumin Level 3.5 g/dL (3.5-5.1); Alkaline Phosphatase 110 U/L (38-126); Anion Gap 7 mmol/L (8-16); Aspartate Amino Transferase 25 U/L (17-59); Bilirubin,Total 0.1 mg/dL (0.2-1.3); Blood Urea Nitrogen 24 mg/dL (9-20); Calcium 8.6 mg/dL (8.4-10.2); Carbon Dioxide 25 mmol/L (22-30); Chloride 105 mmol/L (98-107); Estimated CRCL calculation 72 ml/min; Estimated Glomerular Filt Rate 56; Glucose 181 mg/dL (65-110); Magnesium 1.8 mg/dL (1.6-2.3); Phosphorus 2.4 mg/dL (2.5-4.5); Potassium 3.7 mmol/L (3.4-5.0); Sodium 137 mmol/L (137-145)
[2021-01-31 06:32] VITALS: BP 163/85; PULSE 76; RESP 16; TEMP 36.6; O2SAT 100
[2021-01-31] MEDS: SODIUM CHLORIDE 0.9% IV 1,000 ML 100 ML IV CONT (06:33)
[2021-01-31 08:08] LABS: Glucose Point of Care 165 mg/dl (65-105)
[2021-01-31] MEDS: ATORVASTATIN 40 MG TABLET PO (08:42)
[2021-01-31] MEDS: ENOXAPARIN 40 MG/0.4 ML SYRINGE SUB-Q (08:42)
[2021-01-31] MEDS: ASPIRIN 325 MG TABLET PO (08:42)
[2021-01-31] MEDS: levETIRAcetam 500 MG TABLET 1500 MG PO ×2 (08:42→20:35)
[2021-01-31 10:14] LABS: Hemoglobin A1C 11.6 % (<5.7)
--- NOTE | 2021-01-31 10:23 | PM.IMPN ---
Progress Note: A&P Assessment and Plan (1) Acute kidney injury: Code(s): N17.9 - Acute kidney failure, unspecified Status: Acute Assessment and Plan: baseline creatinine is 1.2, in September, admission creatinine was 2.7 concurrently at baseline, resolved as patient does not eat or drink during psychotic breaks, almost certainly due to dehydration will bolus 1 L, and then keep on maintenance fluid, and obtain repeat creatinine in the morning (2) Type 2 diabetes mellitus with hyperglycemia: Qualifiers: Diabetes mellitus senior living insulin use: with rat exterminator use Qualified Code(s): E11.65 - Type 2 diabetes mellitus with hyperglycemia; Z79.4 - halfway (current) use of insulin Code(s): E11.65 - Type 2 diabetes mellitus with hyperglycemia Status: Acute Assessment and Plan: patient is on 40 units of long-acting insulin nightly and sliding scale at home as diet will be reduced, and he was hypoglycemic to the 50s on admission, he will be on 30 units nightly here, in addition to a sliding scale will obtain an A1c in the morning patient is to be on diabetic diet (3) Seizure: Code(s): R56.9 - Unspecified convulsions Status: Acute Assessment and Plan: Patient is on 1500 b.i.d. Keppra at home, will continue here Of note, while on Keppra had a breakthrough seizure potentially, a few weeks ago. apparently was focal, and 1 of his arms started convulsing, and he felt as though his seizure was imminent, however he did not actually seize. believes that this is due to not taking medication. will consult neurology for possibly re-dosing Keppra or adding additional medications. Given psychiatric symptoms started following trauma and subdural hematoma, some concern for traumatic encephalopathy, and given concern for hallucinations, may potentially suffer from Lewy body dementia. would request Neurology evaluation. (4) Schizophreniform disorder: Code(s): F20.81 - Schizophreniform disorder Status: Acute Assessment and Plan: Most likely explanation of psychotic breaks is schizophreniform disorder. Has been going on a few months, patient has episodes of behaving erratically per , and occasionally becoming aggressive. denies homicidal and suicidal ideation, however endorses hallucinations during episodes, including visual hallucinations of seeing people who were not there, and smelling things. Would benefit from inpatient psychiatric evaluation, and neurological evaluation. Of note, symptoms began following development of subdural hematoma a few years ago. CT head was done today, and did not reveal any acute abnormalities. Patient has been on Seroquel in the past, however has not been taking as he does not like the way the medication makes him feel. Will continue p.r.n. Ativan from home. Sitter at bedside will need case management evaluation to determine where to discharge patient (5) CAD (coronary artery disease): Code(s): I25.10 - Atherosclerotic heart disease of [place] coronary artery without angina pectoris Status: Acute Assessment and Plan: complex CAD history, including PR in 2009 followed by stenting followed by a reocclusion. Followed by hot metal car operator outpatient, and per patient is supposed to be on 0325 daily aspirin, which we will continue. In addition takes p.r.n. Lasix at home, which we will hold because patient is dehydrated. Is on diltiazem at home, however will hold as blood pressure is soft. no acute cardiac symptoms, Family unsure if patient is formally been diagnosed with congestive heart failure, Will hold off on additional workup at this time, as patient is followed closely as an outpatient by hot metal car operator. Subjective Date/time seen: 01/31/21 10:23 no acute medical complaints, resting comfortably in bed Review of Systems Review of Systems: All systems reviewed & are unremarkable except as noted in
[2021-01-31 11:11] VITALS: BMI 30.7
[2021-01-31 12:14] LABS: Glucose Point of Care 242 mg/dl (65-105)
[2021-01-31] MEDS: INSULIN ASPART (*BKC) 100 UNITS/ML SUB-Q ×2 (12:22→18:26)
[2021-01-31 14:00] VITALS: BP 149/75; PULSE 77; RESP 16; TEMP 35.8; O2SAT 100
[2021-01-31 15:44] VITALS: O2SAT 97
--- NOTE | 2021-01-31 16:25 | WPDNEURCNPN ---
Assessment and Plan Additional Plan will be re-examined for further discussion Consult date: 01/31/21 Time Seen: 09:30 HPI: Mark Anthony Westfall Jr. is a 65 year old male has been admitted to the hospital because of the erratic behavior as per the information available from his in addition to the ongoing history of 1. Coronary artery disease 2. Diabetes mellitus 3. Previous stroke, as per the information available he becomes incredibly irate easily, patient does have ongoing history of anemia anxiety arthritis chronic back pain coronary artery disease with congestive heart failure and previous stroke involving the mid brain in addition to dementia or depression and diabetes mellitus. Particular evaluation up until now includes a CT scan of the head which is normal, routine blood studies revealed no leukocytosis with hemoglobin of 10.3 platelet count of 277 2+ protein and 3+ glucose on UA, negative toxicology of the urine, patient has been on Keppra Review of Systems Review of Systems: All systems reviewed & are unremarkable except as noted in HPI and below PMFSH Past Medical History Medical History Anemia Anxiety Arthritis Asthma Back fracture Bulging discs CAD (coronary artery disease) CAD (coronary artery disease) CHF (congestive heart failure) Chronic back pain Chronic kidney disease, stage 3 With baseline creatinine between 1.2 and 1.5 Coronary artery disease 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 Large SDH after head trauma from a fall. 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 PVD (peripheral vascular disease) Schizophreniform disorder Seasonal allergies Septic prepatellar bursitis of left knee MRSA September 2018 Shingles Spinal stenosis Spinal stenosis With history of herniated discs and stress fractures on chronic narcotic therapy Staph infection SVT (supraventricular tachycardia) With history of cardiac ablation in 2001 Surgical History Surgical History H/O cardiac radiofrequency ablation for SVT H/O excision of ganglion cyst H/O heart artery stent Placed in 2006 H/O nasal polypectomy H/O prior ablation treatment History of arthroscopic knee surgery Bilateral History of cardiac catheterization History of cardiac catheterization 2014 complicated by prizmetal's angina History of colonoscopy with polypectomy 2016 demonstrating internal hemorrhoids, external hemorrhoids and transverse colon polyp status post polypectomy History of coronary artery stent placement History of esophagogastroduodenoscopy November 2016 demonstrating reflux esophagitis and gastritis History of laparoscopic cholecystectomy October 2018 History of repair of ACL History of sinus surgery Anterior ethmoid, right maxillary and frontal sinus surgery 2013 History of tonsillectomy History of total bilateral knee replacement Performed at the [facility] with multiple revisions to his right knee with his most recent left total knee arthroplasty performed by Dr. Diane in [facility] Status post repair of medial collateral ligament Family History Family History Mother Breast cancer Hypertension Dementia Sibling Asthm
[2021-01-31 17:40] LABS: Glucose Point of Care 219 mg/dl (65-105)
[2021-01-31] MEDS: HYDROcodone/acetaminophen (*CRX) 5-325 MG TABLET 2 TAB PO (20:33)
[2021-01-31 20:41] VITALS: BP 151/83; PULSE 83; RESP 18; TEMP 36.7; O2SAT 99
[2021-01-31] MEDS: INSULIN GLARGINE (*BKC) 100 UNITS/ML 30 UNITS SUB-Q (20:42)
[2021-01-31 20:53] LABS: Glucose Point of Care 275 mg/dl (65-105)
--- NOTE | 2021-01-31 22:57 | PM.DS ---
DS: Admitting Diagnosis Admitting Diagnosis erratic behavior DS: Discharge Diagnosis Discharge Diagnosis (1) Acute kidney injury: Code(s): N17.9 - Acute kidney failure, unspecified Status: Acute (2) Schizophreniform disorder: Code(s): F20.81 - Schizophreniform disorder Status: Acute DS: Summary Hospital Course Hospital Course: 65 yo man with history of prior CVA presenting with erratic behavior by . According to her he has episodes of behaving erratically and not making any sense. In the past his behavior has made her frightened, although unclear if he has been explicitly violent. According to him, during these episodes he sometimes smells things that aren't there. Exensive interview with patient and his . At time of presentation through to end of hospital stay, patient denied suicidal or homicidal ideation. Never had any outbursts other than one disagreement with nurse over pain medications. Admitted for LUIS MIGUEL which resolved with fluids. Was going to keep in hospital until bed opened up at facility arranged by care coordination. However patient discussed with and they agreed he could spend the interval time at home. I spoke with his in person at length to ensure that she was comfortable taking him home as there had been some suggestion of violence in my previous conversation with her. She assured me multiple times in no uncertain terms that she felt comfortable and prefered to take him home until a bed opened up at outside facility. Patient also potentially had breakthrough seizure, though says this is possibly related to not taking keppra. He was continued on home dose of keppra and we obtained keppra level. Neurology consulted. Dischsrge on home dose, as likely patient nonadherence induced episode, and close followup with pcp and neurologist. Time Spent with Patient Time attestation: Total time spent providing and/or coordinating discharge services: Exam Const: General: no acute distress Neck: Neck: no JVD Resp: Effort & Inspection: normal respiratory effort Auscultation: clear to auscultation bilaterally Cardio: Rate: regular rate Rhythm: regular rhythm GI: GI Palp: Yes Soft to palpation and No Tenderness to palpation present (GI) Discharge Plan Discharge Attending physician on discharge: Aure Reeves Consulting providers: Fish Milton ; Harris Ferris ; Ferny Edwards Discharging Clinician: Aure Reeves Patient Disposition: Home, Self-Care Activity: may shower, no straining and follow weight bearing status Diet: regular, heart healthy and diabetic Discharge Instructions: Per Care Coordination, Patient is to call every morning to [facility], at , press O and inquire if there is a bed available for pt to admit until a bed is available Facility is located at [address] [place] [address]. Patient Instructions: Antibiotic Form Stand Alone Forms: General Discharge Information Follow-up/Referrals: Harris Ferris MD [Physician] - Fish Milton MD [Physician] - (possibly having breakthrough seizures on current keppra dose - although non-adherence is also cause of problem) Prerna Grey MD [Physician] - (Extensive cad history incl stents several years ago doesn't follow with a plastics supervisor says he is on 325/day aspirin?) Nithin Matthews MD [Primary Care Provider] - Discharge Medications: Continued aspirin 325 mg Tablet,Delayed Release (Dr/Ec) 325 mg PO QAM Qty: 30 RF: 0 amlodipine 10 mg tablet 10 mg PO DAILY RF: 0 lorazepam 1 mg Tablet 1 mg PO BID PRN (Reason: Anxiety) RF: 0 Levemir FlexTouch U-100 Insuln 100 unit/mL (3 mL) Insulin Pen 46 unit SUBCUT BID RF: 0 insulin aspart U-100 [Novolog U-100 Insulin aspart] 100 unit/mL Solution 1 sliding scale dose SUBCUT USEASDIRECTD RF: 0 pravastatin 40 mg tablet 40 mg PO HS RF: 0 hydrochlorothiazide 50 mg table
[2021-02-01 06:00] VITALS: BP 165/85; PULSE 68; RESP 16; TEMP 36.5; O2SAT 100
[2021-02-01 06:23] LABS: Basophils Percent Auto 0.8 % (0.2-1.2); Eosinophils Absolute Auto 0.3 K/mm3 (0-0.3); Eosinophils Percent Auto 5.5 % (0-4.4); Hematocrit 37.4 % (42.0-52.0); Hemoglobin 11.5 g/dL (14.0-18.0); Immature Granulocyte Absolute 0.01 K/mm3 (0.00-0.031); Immature Granulocyte Percent A 0.2 % (0-0.5); Lymphocytes Absolute Auto 2.15 K/mm3 (0.9-3.2); Lymphocytes Percent Auto 43.6 % (18.3-44.2); Mean Corpuscular HGB Conc 30.7 g/dl (32-36); Mean Corpuscular Hemoglobin 25.4 pg (26-34); Mean Corpuscular Volume 82.7 fl (80-100); Mean Platelet Volume 9.7 fl (7.4-10.4); Monocytes Absolute Auto 0.6 K/mm3 (0.1-0.6); Neutrophils Absolute Auto 1.9 K/mm3 (1.3-6.7); Neutrophils Percent Auto 37.9 % (45.5-73.1); Platelet Count Result 327 k/mm3 (150-375); Red Blood Count 4.52 M/mm3 (4.6-6.20); Red Cell Distribution Width 15.9 % (11.5-14.5); White Blood Count 4.9 K/mm3 (4.5-10.0)
[2021-02-01 06:42] LABS: Alanine Aminotransferase 14 U/L (4-50); Alkaline Phosphatase 120 U/L (38-126); Anion Gap 8 mmol/L (8-16); Aspartate Amino Transferase 25 U/L (17-59); Bilirubin,Total 0.2 mg/dL (0.2-1.3); Blood Urea Nitrogen 17 mg/dL (9-20); Calcium 9.2 mg/dL (8.4-10.2); Carbon Dioxide 29 mmol/L (22-30); Chloride 102 mmol/L (98-107); Estimated CRCL calculation 84 ml/min; Estimated Glomerular Filt Rate > 60; Glucose 113 mg/dL (65-110); Magnesium 1.6 mg/dL (1.6-2.3); Phosphorus 2.6 mg/dL (2.5-4.5); Potassium 3.2 mmol/L (3.4-5.0); Sodium 139 mmol/L (137-145)
[2021-02-01] MEDS: POTASSIUM CHLORIDE 20 MEQ TABLET 40 MEQ PO (09:36)
[2021-02-01] MEDS: ATORVASTATIN 40 MG TABLET PO (09:37)
[2021-02-01] MEDS: levETIRAcetam 500 MG TABLET 1500 MG PO (09:37)
[2021-02-01] MEDS: ASPIRIN 325 MG TABLET PO (09:37)
[2021-02-01 09:41] LABS: Glucose Point of Care 306 mg/dl (65-105)
[2021-02-01] MEDS: INSULIN ASPART (*BKC) 100 UNITS/ML SUB-Q (09:41)
--- NOTE | 2021-03-05 20:12 | WPDCNPSYCH ---
HPI Data of Consult Date/Time: 03/05/21 20:12 Requesting Physician: Aure Reeves MD Primary Care Provider: Nithin Matthews MD Consult Narrative Narrative: Mark Anthony Westfall Jr. is a 65 year old male I did not see the patient. He was discharged before seen. 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 Large SDH after head trauma from a fall. 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 PVD (peripheral vascular disease) Schizophreniform disorder Seasonal allergies Septic prepatellar bursitis of left knee MRSA September 2018 Shingles Spinal stenosis Spinal stenosis With history of herniated discs and stress fractures on chronic narcotic therapy Staph infection SVT (supraventricular tachycardia) With history of cardiac ablation in 2001 Surgical History Surgical History H/O cardiac radiofrequency ablation for SVT H/O excision of ganglion cyst H/O heart artery stent Placed in 2006 H/O nasal polypectomy H/O prior ablation treatment History of arthroscopic knee surgery Bilateral History of cardiac catheterization History of cardiac catheterization 2014 complicated by prizmetal's angina History of colonoscopy with polypectomy 2016 demonstrating internal hemorrhoids, external hemorrhoids and transverse colon polyp status post polypectomy History of coronary artery stent placement History of esophagogastroduodenoscopy November 2016 demonstrating reflux esophagitis and gastritis History of laparoscopic cholecystectomy October 2018 History of repair of ACL History of sinus surgery Anterior ethmoid, right maxillary and frontal sinus surgery 2012 History of tonsillectomy History of total bilateral knee replacement Performed at the [facility] with multiple revisions to his right knee with his most recent left total knee arthroplasty performed by Dr. Diane in [facility] Status post repair of medial collateral ligament Family History Family History Mother Breast cancer Hypertension Dementia Sibling Asthma Brother Hypertension Father Dementia Lung cancer Hypertension Social History Social History Social History: Lives at home with his and son. Lifelong nonsmoker. Denies drug or alcohol use. He is a full code. Nominates his to be the individual who would make medical decisions for him if he is unable. He walks with a cane. Primary care physician: Dr. Nithin Craig Smoking status: Never smoker Tobacco type: cigars Second hand tobacco smoke exposure: Yes Alcohol intake: never Substance use: never Substance use type: does not use Additional living arrangements comments: The patient lives at home with his , 2 large dogs and a cat. He ambulates with a cane. He has 3 childr
== END 2021-02-01 13:04 | disposition home or self-care (01) ==
LOC: ANHED 01-30 01:00 → ANH3MEDSUR 01-30 10:01 → ANH2MED 02-01 12:24 → ANH3MEDSUR 02-02 12:32
PROVIDERS: Admitting Provider Internal Medicine; Emergency Provider Emergency Medicine; PCP Family Medicine Adolescent Medicine; Visit Provider Internal Medicine
DX: F20.81 Schizophreniform disorder (principal); N17.9 Acute kidney failure, unspecified; I25.10 Atherosclerotic heart disease of native coronary artery without angina pectoris; I13.0 Hypertensive heart and chronic kidney disease with heart failure and stage 1 through stage 4 chronic kidney disease, or unspecified chronic kidney disease; E11.22 Type 2 diabetes mellitus with diabetic chronic kidney disease; N18.30 Chronic kidney disease, stage 3 unspecified; I50.9 Heart failure, unspecified; R56.9 Unspecified convulsions; Z79.4 Long term (current) use of insulin; Z95.5 Presence of coronary angioplasty implant and graft; Z96.653 Presence of artificial knee joint, bilateral; Z86.73 Personal history of transient ischemic attack (TIA), and cerebral infarction without residual deficits
CPT/HCPCS: 36415; 70450; 80053; 80307; 82607; 82728; 82746; 82948; 83036; 83540; 83550; 83735; 84100; 85025; 85046; 96361; 96365; 96366; 96372; 96374; 96375; 99285; A9270; G0378; J1650; J1815; J2060; J7030; J7120

== ENCOUNTER 2021-04-26 14:13 | Observation (INO) | payer OTHER, BC, SELFPAY ==
[2021-04-26] VITALS (34 sets, daily range): BP systolic 134–191; BP diastolic 79–108; PULSE 87–152; RESP 12–27; TEMP 36.6–36.8; O2SAT 94–100; BMI 31.8
--- NOTE | ~2021-04-26 | XR_ITS ---
EXAMINATION: XR barium swallow modified DATE: 04/27/2021 09:49 INDICATION: Dysphagia. TECHNIQUE: The patient was given barium-containing material of multiple consistencies to swallow by t he speech pathologist while the radiologist performed fluoroscopy. Fluoroscopy exposure time was 2.7 minutes. The number of fluoroscopy images saved to the PACS was 1. Dose-area product was 2.527 Gy-cm^2 . FINDINGS: There is reduced laryngeal elevation, vallecular residue, and pyriform sinus residue. There is laryng eal penetration with thin liquids. IMPRESSION: 1. Laryngeal penetration with thin liquids. No aspiration. 2. Please refer to the speech therapy report for recommendations. Reviewed, dictated and finalized at location A. DESIGN SALES CONSULTANT
--- NOTE | ~2021-04-26 | XR_ITS ---
EXAMINATION: XR chest 1V portable EXAM DATE: 04/26/2021 14:54 INDICATION: Seizure, Head Injury 2 Years Ago Which Started Seizures. TECHNIQUE: Portable AP frontal chest x-ray was obtained. Comparison is made to prior examination from 09/15/2020. FINDINGS: There is ill-defined left lower lobe airspace disease, could be edema or pneumonia. Please clinically correlate. No pneumothorax or pleural effusion. Cardiomediastinal silhouette is normal. T here are no osseous abnormalities identified. IMPRESSION: Probable ill-defined Ill-defined left basilar airspace disease, could be edema or pneumon ia. Reviewed, dictated and finalized at location B. EN IRON POURER IMPRESSION: Probable ill-defined Ill-defined left basilar airspace disease, cou ld be edema or pneumonia.
--- NOTE | ~2021-04-26 | XR_ITS ---
EXAMINATION: XR lumbar spine 2-3V DATE: 04/26/2021 16:53 INDICATION: Low back pain post seizure TECHNIQUE: Anteroposterior and lateral views of the lumbar spine, and cone-down lateral view of the l umbosacral junction were obtained. COMPARISON: Lumbar spine CT dated 09/21/2018 FINDINGS: 2 mm retrolisthesis L3 on L4 and L4 on L5. Vertebral body heights are normal. Multilevel disc height loss, moderate severity at L1-L2, L2-L3, L4-L5 and L5-S1 and mild at T11-T12, T12-L1 and L3-L4. There are bridging osteophytes at multiple levels in the lumbar and lower thoracic spine, consistent with diffuse idiopathic skeletal hyperostosis (DISH). Moderate to severe mid to lower thoracic facet osteo arthritis. Small bone island at the right posterior iliac spine. Mild bilateral sacroiliac osteoarthr itis. Cholecystectomy clips in right upper quadrant. IMPRESSION: 1. Moderate to severe lumbar spondylosis. Reviewed, dictated and finalized at location A. ET ROLLER ENGINEER
--- NOTE | ~2021-04-26 | US_ITS ---
EXAMINATION: US carotid duplex BI DATE: 04/27/2021 10:13 INDICATION: Left frontal lobe infarct. TECHNIQUE: Grayscale, color Doppler, and pulsed Doppler images of the cervical carotid arteries were obtained. The degree of vessel stenosis is placed in one of the following categories: normal, <50%, 5 0-69%, >=70% but less than near-occlusion, near-occlusion, or total occlusion. Note that percent sten osis relative to normal distal artery lumen diameter is indirectly measured from velocity measurement s as described by Shiraz, et al. Radiology 2003; 229:[id number]. COMPARISON: Ultrasound 08/14/18 FINDINGS: RIGHT: The right common carotid artery (CCA) peak systolic velocity (PSV) is 82 cm/s. The right internal car otid artery (ICA) PSV is 78 cm/s. The right ICA end-diastolic velocity (EDV) is 28 cm/s. The right IC A/CCA PSV ratio is 1.0. Grayscale and color Doppler images yield an estimate of <50% diameter reducti on from plaque in the ICA. There is antegrade flow in the right vertebral artery. LEFT: The left CCA PSV is 76 cm/s. The left ICA PSV is 82 cm/s. The left ICA EDV is 15 cm/s. The left ICA/C CA PSV ratio is 1.1. Grayscale and color Doppler images yield an estimate of <50% diameter reduction from plaque in the ICA. There is antegrade flow in the left vertebral artery. IMPRESSION: 1. <50% stenosis in the right internal carotid artery. 2. <50% stenosis in the left internal carotid artery. Reviewed, dictated and finalized at location A. L TECHNICIAN
--- NOTE | ~2021-04-26 | XR_ITS ---
EXAMINATION: XR abdomen/kub 1V DATE: 04/26/2021 23:07 INDICATION: Abdominal distention and nausea TECHNIQUE: A supine view of the abdomen on 2 radiographs was obtained. COMPARISON: None. FINDINGS: Small amount of gas and stool scattered throughout the colon. Small amount of gas within a couple non dilated loops of small bowel. Cholecystectomy clips in right upper quadrant. Moderate to severe lumba r spondylosis. IMPRESSION: 1. No dilated loops of bowel to suggest obstruction. Reviewed, dictated and finalized at location A. MBLIES AND INSTALLATIONS INSPECTOR
--- NOTE | ~2021-04-26 | CT_ITS ---
EXAMINATION: CTA neck EXAM DATE: 04/27/2021 14:23 INDICATION: Stroke like symptoms. TECHNIQUE: Spiral CTA of the carotid arteries was performed with intravenous injection 100cc of Omnip aque 350. Axial, coronal, sagittal reformatted images reviewed. Additional reformatted images creat ed on dedicated 3-D workstation. NASCET comparable standard used to assess the degree of arterial st enosis. The dose-length product (DLP) for this examination was 577.09 mGy-cm. The exposure was tail ored according to patient size (auto mA exposure control), and iterative reconstruction (ASIR) was us ed as additional dose reduction technique. There is no prior study for comparison. FINDINGS: There is mild left carotid bulb arterial sclerosis, 0% carotid bulb stenosis bilaterally. M ild bilateral carotid siphon arterial sclerosis without significant stenosis. Most of [place] s was imaged and is unremarkable. There is left-sided posterior communicating artery dominant posteri or cerebral artery. No carotid or vertebral arterial dissection. Lung apices are clear. Submandibular parotid and thyroid glands are unremarkable. Right maxillary sinus window procedure. Opacified right anterior ethmoid air cells. Large anteriorly based endplate osteophytes. IMPRESSION: 1. No acute neck or carotid findings. 2. Bilateral carotid bulb 0% stenosis. 3. Chronic findings. Reviewed, dictated and finalized at location B. ON PUSHER
--- NOTE | ~2021-04-26 | CT_ITS ---
EXAMINATION: CT brain wo con EXAM DATE: 04/26/2021 14:48 INDICATION: Seizure. Dysphagia. History stroke and subdural hematoma. TECHNIQUE: Spiral CT of the head was performed without contrast. Axial, coronal and sagittal images were reviewed. The dose-length product (DLP) for this examination was 1362.00 mGy-cm. The exposure was tailored according to patient size, and iterative reconstruction (ASIR) was used as additional do se reduction technique. Comparison is made to prior examination from 01/29/2021. FINDINGS: There is small old left frontal lobe cortical infarction posteriorly. There is no acute int raparenchymal hemorrhage. No evidence of intraparenchymal brain mass lesion. No evidence of acute i nfarction. Please note that initial head CT has limited sensitivity for small or acute infarctions. There is mild periventricular and subcortical hypodensity, nonspecific but probably related to small vessel ischemic disease. There is mild prominence of the sulci and ventricles related to cerebral a trophy. There is intracranial carotid arteriosclerosis. There are no extra-axial collections. The re is no mass effect or midline shift. The orbits are unremarkable. Soft tissue is unremarkable. Right maxillary sinus window procedure. There is opacified right anterior ethmoid sinus. Approximatel y half of the right frontal sinus is also opacified. Mucoperiosteal disease an/or polyps. There is n o significant interval change. IMPRESSION: 1. Old small left frontal lobe cortical infarction. 2. Chronic age related findings. Reviewed, dictated and finalized at location [facility]GR[facility]HY
--- NOTE | 2021-04-26 14:37 | PC.NURSE ---
Pt off floor to radiology
[2021-04-26 15:27] LABS: Basophils Absolute Auto 0.1 K/mm3 (0.0-0.1); Basophils Percent Auto 0.6 % (0.2-1.2); Eosinophils Absolute Auto 0.1 K/mm3 (0-0.3); Eosinophils Percent Auto 0.6 % (0-4.4); Hematocrit 37.6 % (42.0-52.0); Hemoglobin 12.5 g/dL (14.0-18.0); Immature Granulocyte Absolute 0.03 K/mm3 (0.00-0.031); Immature Granulocyte Percent A 0.3 % (0-0.5); Lymphocytes Absolute Auto 1.29 K/mm3 (0.9-3.2); Lymphocytes Percent Auto 12.7 % (18.3-44.2); Mean Corpuscular HGB Conc 33.2 g/dl (32-36); Mean Corpuscular Hemoglobin 26.6 pg (26-34); Mean Platelet Volume 9.6 fl (7.4-10.4); Monocytes Absolute Auto 0.6 K/mm3 (0.1-0.6); Monocytes Percent Auto 6.2 % (2.6-8.5); Neutrophils Absolute Auto 8.1 K/mm3 (1.3-6.7); Neutrophils Percent Auto 79.6 % (45.5-73.1); Platelet Count Result 283 k/mm3 (150-375); Red Cell Distribution Width 15.4 % (11.5-14.5); White Blood Count 10.1 K/mm3 (4.5-10.0)
[2021-04-26 15:43] LABS: Alanine Aminotransferase 15 U/L (4-50); Albumin Level 4.5 g/dL (3.5-5.1); Alkaline Phosphatase 177 U/L (38-126); Anion Gap 11 mmol/L (8-16); Aspartate Amino Transferase 23 U/L (17-59); Bilirubin,Total 0.6 mg/dL (0.2-1.3); Blood Urea Nitrogen 18 mg/dL (9-20); Calcium 9.3 mg/dL (8.4-10.2); Carbon Dioxide 25 mmol/L (22-30); Chloride 99 mmol/L (98-107); Estimated CRCL calculation 80 ml/min; Estimated Glomerular Filt Rate > 60; Glucose 272 mg/dL (65-110); Magnesium 1.6 mg/dL (1.6-2.3); Phosphorus 2.4 mg/dL (2.5-4.5); Potassium 3.4 mmol/L (3.4-5.0); Sodium 135 mmol/L (137-145)
[2021-04-26 15:47] LABS: Glucose Point of Care 245 mg/dl (65-105)
[2021-04-26] MEDS: LORazepam INJ (*CRX) 2 MG/ML VIAL 1 MG IV PUSH ×2 (15:49→21:10)
[2021-04-26] MEDS: INSULIN HUMAN REGULAR (*BKC) 100 UNITS/ML 10 UNITS SUB-Q (15:59)
--- NOTE | 2021-04-26 17:22 | PC.NURSE ---
Oxycodone not given. Prior to administration of medication, WARNER Briscoe walked into room stating she was changing the order. Medication not opened and returned to pharmacy.
--- NOTE | 2021-04-26 17:25 | PC.NURSE ---
Clarified with WARNER Mitchell. Pt to have dilaudid, cancelled order for oxycodone.
[2021-04-26] MEDS: HYDROmorphone HCL INJ (*CRX) 1 MG/ML SYR IV PUSH ×2 (17:30→22:24)
--- NOTE | 2021-04-26 18:26 | PC.NURSE ---
Multiple attempts to assist patient with urinal. Pt still has expressive aphasia, continues to repeat I peed but will not allow RN to assist with urinal. Tech at bedside assisting patient back into bed and set up monitors again. WARNER Mitchell aware.
[2021-04-26] MEDS: levETIRAcetam 1000MG/NACL100ML 1,000 MG/100 ML BAG 400 MG IVPB (19:09)
[2021-04-26 19:47] LABS: Add Urine Microscopic? YES; Appearance Urine Clear (Clear); Bilirubin Urine Negative (Negative); Blood Urine Negative (Negative); Color Urine Yellow (Yellow); Glucose Urine UA 3+ mg/dL (Negative); Ketones Urine Trace mg/dL (Negative); Leukocyte Esterase Ur Negative LEU/UL (Negative); Nitrate Urine Negative (Negative); Protein Urine 2+ mg/dL (Negative); Specific Grav Ur 1.018 (1.001-1.035); Urobilinogen Urine Negative mg/dL (<2.0); WBC Urine 0-3 /hpf
--- NOTE | 2021-04-26 20:02 | PC.NURSE ---
Med list confirmed with patient's
--- NOTE | 2021-04-26 20:52 | ED.GENADULT ---
HPI - General Adult General Chief complaint: Seizure <Stephen Paulino PA-C - Last Filed: 04/26/21 21:06> Stated complaint: seizure <RYLEE Chris Last Filed: 04/26/21 21:06> Time Seen by Provider: 04/26/21 14:14 <Stephen Paulino PA-C - Last Filed: 04/26/21 21:06> Source: patient and family () <RYLEE Chris Last Filed: 04/26/21 21:06> Mode of arrival: EMS <RYLEE Chris Last Filed: 04/26/21 21:06> Limitations: clinical condition <RYLEE Chris Filed: 04/26/21 21:06> History of Present Illness HPI narrative: Patient is a 65-year-old male presenting with chief complaint of seizure activity at approximately 1130 today. Patient's says she did she tell the patient go to the ground and began crawling to his recliner so she attempted to help him up, he began having a tonic-clonic seizure that lasted approximately a minute. Patient's states that after this type he began having some jerking motions of his extremities. She reports that he was unsteady on his feet so she called EMS. Patient's reports that he has a history of a stroke 5 years ago, stroke 4 years ago, and a TBI 3 years ago. She reports that this left him with some weakness on the right side. she reports the patient has a history of seizures which are managed by Dr. Milton. She reports that the patient takes 1500 mg of Keppra twice a day and did not miss his dosages on Friday but took them yesterday and this morning. reports that they noticed in the ambulance the patient was having some trouble with his speech but did not have any facial asymmetry. She reports that he was given 5 mg of Valium for her symptoms remaining complete speech cleared. Patient reports that the only areas of pain are his back which he has chronic pain for which she takes 20 mg of OxyContin approximately 5 times a day. Patient has not had 1 dose today. Patient denies chest pain, shortness of breath, headache, changes to vision or hearing, nausea, vomiting, abdominal pain. <Stephen Paulino PA-C - Last Filed: 04/26/21 21:06> Related Data Home medications: Home Medications Medication Instructions Recorded Confirmed Levemir FlexTouch U-100 Insuln 46 unit SUBCUT BID 07/07/19 01/30/21 amlodipine 10 mg PO DAILY 07/07/19 01/30/21 lorazepam 1 mg PO BID PRN 07/07/19 01/30/21 insulin aspart U-100 [Novolog 1 sliding scale dose SUBCUT 07/08/19 01/30/21 U-100 Insulin aspart] USEASDIRECTD levetiracetam [Keppra] 1,500 mg PO BID 09/16/20 01/30/21 pravastatin 40 mg PO HS 09/16/20 01/30/21 diltiazem HCl BID 04/26/21 oxycodone 20 mg PO Q4-5H PRN 04/26/21 <Stephen Paulino PA-C - Last Filed: 04/26/21 21:06> Allergies/adverse reactions: Allergies Allergy/AdvReac Type Severity Reaction Status Date / Time Sulfa (Sulfonamide Allergy Intermediate RASH Verified 04/26/21 14:32 Antibiotics) tramadol Allergy Intermediate INCREASED Verified 04/26/21 14:32 HEART BEAT prochlorperazine Allergy Unknown MENTAL Verified 04/26/21 14:32 STATUS CHANGES verapamil Allergy Unknown DYSTONIC Verified 04/26/21 14:32 REACTION azithromycin Allergy Flushing Verified 04/26/21 14:32 metoclopramide [From Reglan] Allergy Other Verified 04/26/21 14:32 peanut Allergy Swelling Verified 04/26/21 14:33 of Lip/Tongue/Throat promethazine [From Phenergan] Allergy Other Verified 04/26/21 14:32 rosuvastatin AdvReac Intermediate ACHY, Verified 04/26/21 14:32 FATIGUE <Stephen Paulino PA-C - Last Filed: 04/26/21 21:06> Review of Systems Review of Systems: CONSTITUTIONAL: Denies fever, chills, or sweats. EYES: Denies visual changes, redness, or discharge. ENT: Denies rhinorrhea, congestion, sore throat, or otalgia. CARDIOVASCULAR: Denies chest pain, palpitations, or edema. RESPIRATORY: Denies cough or dyspnea. GASTROINTESTINAL: Denies abdominal pain, nausea, vomiting, or diarrhea. GENITOURINA
--- NOTE | 2021-04-26 21:07 | ADMGEN ---
This patient, Mark Anthony Westfall Jr., was admitted to Medical Room 247-. Patient/family oriented to hospital policies and general routines including ID bracelet, bed and alarms, visiting hours, pain management, procedures, bathroom and other care routines, personal items, smoking policy, room service/diet, and visiting hours. Information on how to activate the Rapid Response Team has been discussed. Patient/Family are encouraged to report perceived risks to care and to ask questions if they do not understand what they are told or what they should do.
--- NOTE | 2021-04-26 22:10 | PM.IMHP ---
H&P: HPI History of Present Illness Date/Time: 04/26/21 22:10 this is a 65-year-old male patient who has a history of having seizure disorder. The patient is is at the bedside answering questions for me. She stated that the patient did miss a day's worth of seizure medicine but then restarted it. The patient's noted that the patient had fell down on his knees and began crawling to his recliner. She attempted to help him but he was having a tonic clonic seizure. This Sineff lasted approximately 1 minute. The patient was having difficulty talking today and was having some jerking motions of his extremities. He was unsteady on his feet so she activated the EMS. 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 Patient's seizure is usually controlled and he sees Dr. Magaña for this. The stated that the patient takes 1500 mg of Keppra twice a day. His missed dose was on Friday. But then took his medication yesterday. The patient does have chronic pain and is on OxyContin. The patient has chronically been on narcotics for his back pain. The stated that the patient tends to pocket his fluids on the right side of his face before swallowing. She states this is old. She also states that he has some right-sided residual weakness from previous stroke. The patient was pulling his water out of a water bottle when he was attempting to take a drink. Patient is able to touch his nose with his right hand but was having difficulty touching his nose with the left. Patient's blood sugars were noted to be the 200s which the states that is his normal. The patient was given IV Ativan, IV insulin, oxycodone, Dilaudid, and IV Keppra in the emergency room. The patient is answering some questions but not all. The patient has word searching at times. Lumbar spine x-ray was read as moderate to severe lumbar spondylosis. Chest x-ray read as probable ill-defined left basilar airspace disease could be edema or pneumonia. Head CT was read as old small left frontal lobe cortical infarction. Chronic age-related findings. The patient is being admitted to observation status on the date of service of 04/26/2021. Chief Complaint: Seizure activity Review of Systems Review of Systems: All systems reviewed & are unremarkable except as noted in HPI and below Constitutional: Constitutional: Reports as per HPI and Reports no additional constitutional complaints Eyes: Eyes: Reports as per HPI and Reports no additional eye complaints ENT: Reports system reviewed and no additional complaints, except as documented and Reports Normal hearing present Cardiovascular: Cardiovascular: Reports no additional cardiovascular complaints Respiratory: Respiratory: Reports no additional respiratory complaints and Reports no additional respiratory complaints Gastrointestinal: Gastrointestinal: Reports as per HPI and Reports no additional gastrointestinal complaints Musculoskeletal: Musculoskeletal: Reports no additional musculoskeletal complaints Integumentary/Breasts: Skin/Breast: Reports system reviewed and no additional complaints, except as docu and Reports as per HPI Neurologic: Reports system reviewed and no additional complaints, except as documented, Reports as per HPI and Reports Normal hearing present Psychiatric: Psychiatric: Reports no additional psychiatric complaints and Reports as per HPI Endocrine: Endocrine: Reports no additional endocrine complaints Hematologic/Lymphatic: Hematologic/Lymphatic: Reports no additional hematologic/lymphatic complaints Allergic/Immunologic: Allergic/Immunologic: Reports no additional allergic/immunologic complaints PMFSH Past Medical History Medical History (Updated 04/26/21 @ 22:43 by Devora Granda NP) Anemia Anxiety Arthritis Asthma Back fracture Bulging discs CAD (coronary artery disease) CHF (congestive heart failure) Chronic back pain Chronic kidney disease, sta
[2021-04-26] MEDS: ONDANSETRON INJ 4 MG/2 ML VIAL IV PUSH (22:24)
[2021-04-26 22:43] LABS: Glucose Point of Care 330 mg/dl (65-105)
--- NOTE | 2021-04-27 | ECHO_ITS ---
Patient Info Name: Mark Anthony Westfall Age: 65 years : 1955 Gender: Male Ht: 75 in Wt: 254 lbs BSA: 2.50 m2 HR: 91 bpm BP: 165 / 95 mmHg Technical Quality: Good Exam Date: 04/27/2021 11:19 AM Exam Location: [facility] Exam Room: 247 Patient Status: Inpatient Admit Date: 04/26/2021 Staff Ordering Physician: Devora Granda NP Space Controller: Megan Leblanc RDCS Attending Provider: Jay Frost MD Referring Physician: Jesus Alberto NEWBY; Exam Type: CA echo doppler color flow Study Info Indications - confused /murmur hx/o cva Complete two-dimensional, color flow and Doppler transthoracic echocardiogram is performed. Summary 1. Complete two-dimensional, color flow and Doppler transthoracic echocardiogram is performed. 2. Left ventricular chamber dimension is normal. 3. Left ventricular systolic function is normal, estimated at 60-65%. 4. There is mildly increased left ventricular wall thickness. 5. The left ventricular diastolic function is grade I diastolic dysfunction. 6. E/e' 6 is not elevated. 7. Left atrial chamber dimension is moderately enlarged. 8. There is mild aortic valve sclerosis. 9. There is mild mitral valve regurgitation. 10. There is trace tricuspid valve regurgitation. 11. No pulmonary hypertension, estimated pulmonary arterial systolic pressure is 31 mmHg. Left Ventricle E/e' 6 is not elevated. Left ventricular chamber dimension is normal. Left ventricular systolic function is normal, estimated at 60-65%. There is mildly increased left ventricular wall thickness. The left ventricular diastolic function is grade I diastolic dysfunction. Right Ventricle Right ventricular chamber dimension is normal. Right ventricular systolic function is normal. Left Atria Left atrial chamber dimension is moderately enlarged. Right Atria Right atrial chamber dimension is normal. Aortic Valve The aortic valve is trileaflet. There is mild aortic valve sclerosis. There is no aortic valve stenosis. There is no aortic valve regurgitation. Pulmonic Valve There is no pulmonic regurgitation. Mitral Valve There is no mitral valve stenosis. There is mild mitral valve regurgitation. Tricuspid Valve There is trace tricuspid valve regurgitation. No pulmonary hypertension, estimated pulmonary arterial systolic pressure is 31 mmHg. Pericardium/Pleural There is no pericardial effusion. Inferior Vena Cava Normal inferior vena cava with >50% collapse upon inspiration consistent with normal right atrial pressure, 5 mmHg. Aorta The aortic root size at the sinus of Valsalva is normal. Left Ventricular Outflow Tract Name Value Normal LVOT 2D LVOT Diameter 2.2 cm LVOT Doppler LVOT Peak Gradient 6 mmHg LVOT Mean Gradient 3 mmHg LVOT VTI 22 cm LVOT VTI/AV VTI Ratio 0.9 LVOT Stroke Volume 79 ml LVOT CO 18.9 l/min LVOT CI 7.6 l/min/m2 Pul
[2021-04-27] MEDS: INSULIN ASPART (*BKC) 100 UNITS/ML 6 UNITS SUB-Q (00:12)
[2021-04-27 00:25] LABS: Glucose Point of Care 288 mg/dl (65-105)
[2021-04-27] MEDS: HYDROmorphone HCL INJ (*CRX) 1 MG/ML SYR IV PUSH ×3 (00:53→07:25)
[2021-04-27 04:01] VITALS: BP 169/95; PULSE 88; RESP 18; TEMP 37.2; O2SAT 97
[2021-04-27 05:20] LABS: Basophils Percent Auto 0.2 % (0.2-1.2); Hematocrit 37.7 % (42.0-52.0); Hemoglobin 12.3 g/dL (14.0-18.0); Immature Granulocyte Absolute 0.02 K/mm3 (0.00-0.031); Immature Granulocyte Percent A 0.2 % (0-0.5); Lymphocytes Absolute Auto 0.88 K/mm3 (0.9-3.2); Lymphocytes Percent Auto 10.4 % (18.3-44.2); Mean Corpuscular HGB Conc 32.6 g/dl (32-36); Mean Corpuscular Hemoglobin 26.2 pg (26-34); Mean Corpuscular Volume 80.2 fl (80-100); Mean Platelet Volume 9.9 fl (7.4-10.4); Monocytes Absolute Auto 0.5 K/mm3 (0.1-0.6); Monocytes Percent Auto 5.3 % (2.6-8.5); Neutrophils Absolute Auto 7.1 K/mm3 (1.3-6.7); Neutrophils Percent Auto 83.9 % (45.5-73.1); Platelet Count Result 263 k/mm3 (150-375); Red Cell Distribution Width 15.8 % (11.5-14.5); White Blood Count 8.5 K/mm3 (4.5-10.0)
[2021-04-27 05:31] LABS: Hemoglobin A1C 10.7 % (<5.7)
[2021-04-27 05:33] LABS: Lactic Acid Reflex 1.2 mmol/L (0.7-2.1)
[2021-04-27 05:39] LABS: Alanine Aminotransferase 13 U/L (4-50); Albumin Level 4.1 g/dL (3.5-5.1); Alkaline Phosphatase 160 U/L (38-126); Anion Gap 13 mmol/L (8-16); Aspartate Amino Transferase 20 U/L (17-59); Bilirubin,Total 0.6 mg/dL (0.2-1.3); Blood Urea Nitrogen 15 mg/dL (9-20); Calcium 9.5 mg/dL (8.4-10.2); Carbon Dioxide 25 mmol/L (22-30); Chloride 99 mmol/L (98-107); Creatine Kinase 125 U/L (55-170); Estimated CRCL calculation 84 ml/min; Estimated Glomerular Filt Rate > 60; Glucose 304 mg/dL (65-110); Lactate Dehydrogenase 421 U/L (313-618); Magnesium 1.8 mg/dL (1.6-2.3); Potassium 3.6 mmol/L (3.4-5.0); Sodium 137 mmol/L (137-145)
[2021-04-27] MEDS: LORazepam INJ (*CRX) 2 MG/ML VIAL 1 MG IV PUSH (05:58)
[2021-04-27 06:28] LABS: Thyroid Stimulating Hormone Reflex 0.485 uIU/mL (0.465-4.68)
[2021-04-27 07:55] LABS: Glucose Point of Care 251 mg/dl (65-105)
--- NOTE | 2021-04-27 08:10 | PCOTNOTE ---
Attempted to evaluated for occupational therapy. Per nurse request, pt. on hold due to current pt. condition with multiple tests to be performed this morning. Will follow up this afternoon.
--- NOTE | 2021-04-27 08:45 | PM.IMPN ---
Progress Note: A&P Assessment and Plan (1) Acute metabolic encephalopathy: Code(s): G93.41 - Metabolic encephalopathy Status: Acute Assessment and Plan: Could be related to stroke or siezure miss a dose of Keppra this past Friday EEG Abnormal record due to the presence of bihemispheric theta and delta activity carotid Dopplers <50% stenosed echo normal systolic EF 60-65%, left vent wall thickness, grade 1 diastolic dysfunction Neurology consult thank you for your help PT OT and speech therapy evaluation greatly be appreciated. Modified barium swallow obtained-No straws Seems to be resolved Neck CT with and W/O contrast (2) Seizure: Code(s): R56.9 - Unspecified convulsions Status: Acute Assessment and Plan: EEG Abnormal record due to the presence of bihemispheric theta and delta activity Keppra 1500mg PO BID at home Continue Keppra Lorazepam for seizure activity Neuro consult Carotid Doppler <50% stenosed Check a Keppra level in the am Seizure precautions (3) Hypertension: Qualifiers: Hypertension type: essential hypertension Qualified Code(s): I10 - Essential (primary) hypertension Code(s): I10 - Essential (primary) hypertension Status: Acute Assessment and Plan: Current blood pressure 169/95 Continue home amlodipine 10 mg p.o. daily, diltiazem 60 mg p.o. b.i.d. Trend blood pressures Adjust medications as needed (4) Diabetes mellitus type 2, insulin dependent: Code(s): E11.9 - Type 2 diabetes mellitus without complications; Z79.4 - skilled nursing (current) use of insulin Status: Chronic Assessment and Plan: Current glucose 304 A1c 10.7 Initiate sliding scale will change to high-dose Hypoglycemia protocol add Lantus Accu-Cheks AC and HS (5) Acute hyperglycemia: Code(s): R73.9 - Hyperglycemia, unspecified Status: Acute Assessment and Plan: Glucose was 304 labs Will add Lantus tonight Increase sliding scale to high-dose NPH 8 units x 1 Trend labs Adjust therapy as needed (6) Chronic kidney disease, stage 3: Code(s): N18.3 - Chronic kidney disease, stage 3 (moderate) Status: Acute Assessment and Plan: Baseline creatinine appears to be 1.1-1.4 Patient appears to be a baseline this time Trend labs Avoid nephrotoxic medications (7) Bulging discs: Status: Chronic Assessment and Plan: Takes 20 mg of oxycodone Q 4-5 hours at home Continue home dose (8) Expressive aphasia: Code(s): R47.01 - Aphasia Status: Acute Assessment and Plan: Seems to have a new onset of expressive aphasia Does take time to find words, and gets kind of irritated ST will continue to work with him Time Spent With Patient Time with patient: Greater than 35 minutes Subjective Date/time seen: 04/27/21 08:45 Interval history: Date/Time: 04/26/21 22:10 This is a 65-year-old male patient who has a history of having seizure disorder. The patient is is at the bedside answering questions for me. She stated that the patient did miss a day's worth of seizure medicine but then restarted it. The patient's noted that the patient had fell down on his knees and began crawling to his recliner. She attempted to help him but he was having a tonic clonic seizure. This Sineff lasted approximately 1 minute. The patient was having difficulty talking today and was having some jerking motions of his extremities. He was unsteady on his feet so she activated the EMS. 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 Patient's seizure is usually controlled and he sees Dr. Magaña for this. The stated that the patient takes 1500 mg of Keppra twice a day. His missed dose was on Friday. But then took his medication yesterday. The patient does have chronic pain a
--- NOTE | 2021-04-27 08:45 | P.PNIM_ITS ---
Progress Note: A&P Assessment and Plan (1) Acute metabolic encephalopathy: Code(s): G93.41 - Metabolic encephalopathy Status: Acute Assessment and Plan: * Could be related to stroke or siezure * miss a dose of Keppra this past Friday * EEG Abnormal record due to the presence of bihemispheric theta and delta activity * carotid Dopplers <50% stenosed * echo normal systolic EF 60-65%, left vent wall thickness, grade 1 diastolic dysfunction * Neurology consult thank you for your help * PT OT and speech therapy evaluation greatly be appreciated. * Modified barium swallow obtained-No straws * Seems to be resolved * Neck CT with and W/O contrast (2) Seizure: Code(s): R56.9 - Unspecified convulsions Status: Acute Assessment and Plan: * EEG Abnormal record due to the presence of bihemispheric theta and delta activity * Keppra 1500mg PO BID at home * Continue Keppra * Lorazepam for seizure activity * Neuro consult * Carotid Doppler <50% stenosed * Check a Keppra level in the am * Seizure precautions (3) Hypertension: Qualifiers: Hypertension type: essential hypertension Qualified Code(s): I10 - Essential (primary) hypertension Code(s): I10 - Essential (primary) hypertension Status: Acute Assessment and Plan: * Current blood pressure 169/95 * Continue home amlodipine 10 mg p.o. daily, diltiazem 60 mg p.o. b.i.d. * Trend blood pressures * Adjust medications as needed (4) Diabetes mellitus type 2, insulin dependent: Code(s): E11.9 - Type 2 diabetes mellitus without complications; Z79.4 - manager terminal (current) use of insulin Status: Chronic Assessment and Plan: * Current glucose 304 * A1c 10.7 * Initiate sliding scale will change to high-dose * Hypoglycemia protocol * add Lantus * Accu-Cheks AC and HS (5) Acute hyperglycemia: Code(s): R73.9 - Hyperglycemia, unspecified Status: Acute Assessment and Plan: * Glucose was 304 labs * Will add Lantus tonight * Increase sliding scale to high-dose * NPH 8 units x 1 * Trend labs * Adjust therapy as needed (6) Chronic kidney disease, stage 3: Code(s): N18.3 - Chronic kidney disease, stage 3 (moderate) Status: Acute Assessment and Plan: * Baseline creatinine appears to be 1.1-1.4 * Patient appears to be a baseline this time * Trend labs * Avoid nephrotoxic medications (7) Bulging discs: Status: Chronic Assessment and Plan: * Takes 20 mg of oxycodone Q 4-5 hours at home * Continue home dose (8) Expressive aphasia: Code(s): R47.01 - Aphasia Status: Acute Assessment and Plan: * Seems to have a new onset of expressive aphasia * Does take time to find words, and gets kind of irritated * ST will continue to work with him Time Spent With Patient Time with patient: Greater than 35 minutes Subjective Date/time seen: 04/27/21 08:45 Interval history: Date/Time: 04/26/21 22:10 This is a 65-year-old male patient who has a history of having seizure disorder. The patient is is at the bedside answering questions for me. She stated that the patient did miss a day's worth of seizure medicine but then restarted it. The patient's noted that the patient had fell down on his knees and began crawling to his recliner. She attempted to help him but he was having a
[2021-04-27] MEDS: INSULIN ASPART (*BKC) 100 UNITS/ML SUB-Q ×3 (08:52→16:46)
--- NOTE | 2021-04-27 08:57 | PCSTNOTE ---
Addendum entered by Anita Kimball, LOGGING TRUCK DRIVER 04/27/21 09:30: Patient went down for MBSS, will attempt communication evaluation this afternoon after lunch. Original Note: Attempted to see this patient for a communication evaluation in the morning, however he was busy with another professional. Attempted once finished, however treating MARKET RESEARCH WORKER and RN were obtaining PMHx as the patient is now more alert. Will attempt again this morning.
[2021-04-27 09:10] VITALS: RESP 18; O2SAT 97
--- NOTE | 2021-04-27 09:46 | WPDNEUROLOGY ---
Neurology EEG Report General Information Date of Study: 04/27/21 TEST eeg DIAGNOSIS Seizures CONDITION OF RECORDING awake and drowsy EEG NUMBER [id number] CLINICAL HISTORY patient has history of seizures and has been on Keppra for a year though has not had seizure recurrence up until yesterday. EEG DESCRIPTION whole record consists of diffuse low to medium voltage 5 to 7 hertz per 2nd theta admixed and superimposed by low-voltage 15 to 18 hertz per 2nd beta. Bilateral symmetrical sleep activity seen during sleep. Hyperventilation not done. Photic stimulation not done. Non paroxysmal. Nonfocal. Nonlateralizing. IMPRESSION Abnormal record due to the presence of bihemispheric theta and delta activity these findings are suggestive of underlying postictal state for the possibility of metabolic encephalopathy cannot be ruled out clinical correlation recommended .
--- NOTE | 2021-04-27 10:03 | WPDNEURCNPN ---
Assessment and Plan Additional Plan 1. Recurrence of the seizure with postictal state 2. Re-evaluate with EEG MRI and Doppler study of the carotid in addition to echocardiogram and further adjustment accordingly these studies are being done to rule out the possibility of coincidental other diagnosis such as TIA 3. Hypertension Consult date: 04/27/21 HPI: Mark Anthony Westfall Jr. is a 65 year old male admitted to the hospital for the complaints of recurrence of the seizures. 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 his medications usually controlled he takes Keppra 1500 mg twice a day he missed the dose on Friday and then he took the medication next day he also complains of chronic pain and has been taking OxyContin and has been on narcotics for his back pain patient has been left with right-sided weakness from the previous stroke at the time of visit to the ER blood sugar was reportedly in 200s he received IV Ativan, IV insulin, and IV Keppra in the emergency room subsequently he was noted to have some difficulties in his sedation in conversation with word searching he has lumbar spine x-rays were compatible with moderate to severe lumbar spondylosis head CT scan documented old small left frontal lobe cortical infarct. Additionally has ongoing history of anemia, arthritis, bronchial asthma, coronary artery disease, with congestive heart failure, chronic kidney disease stage 3 coronary artery disease in addition to history of CVA and dementia along with diabetes mellitus, his home medications included Keppra 1500 mg p.o. b.i.d. 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 Large SDH after head trauma from a fall. 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
[2021-04-27 11:23] LABS: Glucose Point of Care 299 mg/dl (65-105)
[2021-04-27] MEDS: dilTIAZem HCL 60 MG TABLET PO ×2 (11:47→16:50)
[2021-04-27] MEDS: amLODIPine BESYLATE 5 MG TABLET 10 MG PO (11:47)
[2021-04-27] MEDS: TAMSULOSIN HCL 0.4 MG CAPSULE PO (11:48)
[2021-04-27 12:30] VITALS: BP 154/73; PULSE 94; RESP 18; TEMP 37.2; O2SAT 95
--- NOTE | 2021-04-27 13:02 | ECG_ITS ---
Measurements Intervals [place] Rate: 94 P: 199 NM: 261 QRS: -4 QRSD: 119 T: 65 QT: 372 QTc: 466 Interpretive Statements SINUS RHYTHM WITH FIRST DEGREE AV BLOCK VENTRICULAR PREMATURE COMPLEXES NTRAVENTRICULAR CONDUCTION DELAY BORDERLINE ST-T WAVE ABNORMALITY- HIGH LATERAL LEADS ABNORMAL ECG Electronically Signed On 04-27-2021 13:44:06 HEMATOLOGY NURSE EDUCATOR by Baljeet Borja D.O.
--- NOTE | 2021-04-27 13:47 | PCPTNOTE ---
Discussion had with RYLEE hospitalist that is caring for pt this date - he recommended that PT eval be held today - to try eval tomorrow.
[2021-04-27] MEDS: HYDROmorphone HCL INJ (*CRX) 1 MG/ML SYR 0.5 MG IV PUSH (14:32)
[2021-04-27 16:44] LABS: Glucose Point of Care 339 mg/dl (65-105)
[2021-04-27] MEDS: oxyCODONE HCL (*CRX) 5 MG TAB IR 20 MG PO ×2 (16:50→21:16)
[2021-04-27] MEDS: INSULIN HUMAN NPH (*BKC) 100 UNITS/ML 8 UNITS SUB-Q (17:00)
[2021-04-27] MEDS: PRAVASTATIN SODIUM 20 MG TABLET 40 MG PO (20:17)
[2021-04-27] MEDS: INSULIN GLARGINE (*BKC) 100 UNITS/ML 20 UNITS SUB-Q (20:18)
[2021-04-27 21:28] VITALS: BP 144/87; PULSE 86; RESP 16; TEMP 36.7; O2SAT 96
[2021-04-27 21:40] LABS: Glucose Point of Care 297 mg/dl (65-105)
[2021-04-28] MEDS: oxyCODONE HCL (*CRX) 5 MG TAB IR 20 MG PO ×3 (00:59→10:58)
[2021-04-28 05:49] VITALS: BP 133/74; PULSE 74; RESP 16; TEMP 36.4; O2SAT 100
[2021-04-28 07:22] LABS: Basophils Percent Auto 0.6 % (0.2-1.2); Eosinophils Absolute Auto 0.3 K/mm3 (0-0.3); Eosinophils Percent Auto 4.7 % (0-4.4); Hematocrit 40.2 % (42.0-52.0); Hemoglobin 13.1 g/dL (14.0-18.0); Immature Granulocyte Absolute 0.01 K/mm3 (0.00-0.031); Immature Granulocyte Percent A 0.1 % (0-0.5); Lymphocytes Absolute Auto 2.54 K/mm3 (0.9-3.2); Lymphocytes Percent Auto 36.1 % (18.3-44.2); Mean Corpuscular HGB Conc 32.6 g/dl (32-36); Mean Corpuscular Hemoglobin 26.7 pg (26-34); Mean Platelet Volume 9.9 fl (7.4-10.4); Monocytes Absolute Auto 0.6 K/mm3 (0.1-0.6); Monocytes Percent Auto 9.1 % (2.6-8.5); Neutrophils Absolute Auto 3.5 K/mm3 (1.3-6.7); Neutrophils Percent Auto 49.4 % (45.5-73.1); Platelet Count Result 273 k/mm3 (150-375)
[2021-04-28 07:31] LABS: Alanine Aminotransferase 14 U/L (4-50); Albumin Level 4.1 g/dL (3.5-5.1); Alkaline Phosphatase 143 U/L (38-126); Anion Gap 8 mmol/L (8-16); Aspartate Amino Transferase 29 U/L (17-59); Bilirubin,Total 0.4 mg/dL (0.2-1.3); Blood Urea Nitrogen 17 mg/dL (9-20); Calcium 9.3 mg/dL (8.4-10.2); Carbon Dioxide 29 mmol/L (22-30); Chloride 100 mmol/L (98-107); Estimated CRCL calculation 77 ml/min; Estimated Glomerular Filt Rate > 60; Glucose 225 mg/dL (65-110); Magnesium 1.9 mg/dL (1.6-2.3); Potassium 3.2 mmol/L (3.4-5.0); Sodium 137 mmol/L (137-145)
[2021-04-28 07:52] LABS: Glucose Point of Care 199 mg/dl (65-105)
[2021-04-28] MEDS: amLODIPine BESYLATE 5 MG TABLET 10 MG PO (08:43)
[2021-04-28] MEDS: dilTIAZem HCL 60 MG TABLET PO (08:43)
[2021-04-28] MEDS: TAMSULOSIN HCL 0.4 MG CAPSULE PO (08:43)
[2021-04-28] MEDS: ASPIRIN 325 MG ENTERIC TABLET PO (08:43)
[2021-04-28 12:02] LABS: Glucose Point of Care 332 mg/dl (65-105)
[2021-04-28] MEDS: INSULIN ASPART (*BKC) 100 UNITS/ML SUB-Q (12:02)
--- NOTE | 2021-04-28 12:20 | P.DS_ITS ---
DS: Admitting Diagnosis Discharge Date Date of Service 04/28/21 1040 Admitting Diagnosis TIA and recurrent seizures DS: Discharge Diagnosis Discharge Diagnosis (1) Acute metabolic encephalopathy: Code(s): G93.41 - Metabolic encephalopathy Status: Acute Assessment and Plan: * Could be related to stroke or seizure * Patient thinks that he had a TIA * missed a dose of Keppra this past Friday * EEG Abnormal record due to the presence of bihemispheric theta and delta activity * carotid Dopplers <50% stenosed * echo normal systolic EF 60-65%, left vent wall thickness, grade 1 diastolic dysfunction * Neurology consult thank you for your help * PT OT and speech therapy evaluation greatly be appreciated. * Modified barium swallow obtained-No straws * Seems to be resolved * Neck CT with and W/O contrast (2) Seizure: Code(s): R56.9 - Unspecified convulsions Status: Acute Assessment and Plan: * EEG Abnormal record due to the presence of bihemispheric theta and delta activity * Keppra 1500mg PO BID at home * Continue Keppra * Lorazepam for seizure activity * Neuro consult * Carotid Doppler <50% stenosed * Check a Keppra level in the am * Seizure precautions (3) Hypertension: Qualifiers: Hypertension type: essential hypertension Qualified Code(s): I10 - Essential (primary) hypertension Code(s): I10 - Essential (primary) hypertension Status: Acute Assessment and Plan: * Current blood pressure 133/74 * Continue home amlodipine 10 mg p.o. daily, diltiazem 60 mg p.o. b.i.d. * Trend blood pressures * Adjust medications as needed (4) Diabetes mellitus type 2, insulin dependent: Code(s): E11.9 - Type 2 diabetes mellitus without complications; Z79.4 - superintendent terminal (current) use of insulin Status: Chronic Assessment and Plan: * Current glucose 225 * A1c 10.7 * Initiate sliding scale will change to high-dose * Hypoglycemia protocol * Up home Levemir to 55 units BID * Accu-Cheks AC and HS (5) Acute hyperglycemia: Code(s): R73.9 - Hyperglycemia, unspecified Status: Acute Assessment and Plan: * Glucose was 225 labs * Increase home levemir to 55 unit BID * Increase sliding scale to high-dose * NPH 10 units x 1 * Trend labs * Adjust therapy as needed (6) Chronic kidney disease, stage 3: Code(s): N18.3 - Chronic kidney disease, stage 3 (moderate) Status: Acute Assessment and Plan: * Baseline creatinine appears to be 1.1-1.4 * Patient appears to be a baseline this time * Trend labs * Avoid nephrotoxic medications (7) Bulging discs: Status: Chronic Assessment and Plan: * Takes 20 mg of oxycodone Q 4-5 hours at home * Continue home dose (8) Expressive aphasia: Code(s): R47.01 - Aphasia Status: Acute Assessment and Plan: * Seems to be better at this time * Seems to have a new onset of expressive aphasia * Does take time to find words, and gets kind of irritated * ST will continue to work with him DS: Summary Hospital Course Hospital Course: Patient is a 65-year-old male with past medical history of hypertension, hyperlipidemia, chronic pain, seizures, and diabetes who presented to the ED post tonic-clonic seizure. Patient had EEG performed which showed abnormal record due to presence of bih
--- NOTE | 2021-04-28 12:20 | PM.DS ---
DS: Admitting Diagnosis Discharge Date Date of Service 04/28/21 1040 Admitting Diagnosis TIA and recurrent seizures DS: Discharge Diagnosis Discharge Diagnosis (1) Acute metabolic encephalopathy: Code(s): G93.41 - Metabolic encephalopathy Status: Acute Assessment and Plan: Could be related to stroke or seizure Patient thinks that he had a TIA missed a dose of Keppra this past Friday EEG Abnormal record due to the presence of bihemispheric theta and delta activity carotid Dopplers <50% stenosed echo normal systolic EF 60-65%, left vent wall thickness, grade 1 diastolic dysfunction Neurology consult thank you for your help PT OT and speech therapy evaluation greatly be appreciated. Modified barium swallow obtained-No straws Seems to be resolved Neck CT with and W/O contrast (2) Seizure: Code(s): R56.9 - Unspecified convulsions Status: Acute Assessment and Plan: EEG Abnormal record due to the presence of bihemispheric theta and delta activity Keppra 1500mg PO BID at home Continue Keppra Lorazepam for seizure activity Neuro consult Carotid Doppler <50% stenosed Check a Keppra level in the am Seizure precautions (3) Hypertension: Qualifiers: Hypertension type: essential hypertension Qualified Code(s): I10 - Essential (primary) hypertension Code(s): I10 - Essential (primary) hypertension Status: Acute Assessment and Plan: Current blood pressure 133/74 Continue home amlodipine 10 mg p.o. daily, diltiazem 60 mg p.o. b.i.d. Trend blood pressures Adjust medications as needed (4) Diabetes mellitus type 2, insulin dependent: Code(s): E11.9 - Type 2 diabetes mellitus without complications; Z79.4 - longterm (current) use of insulin Status: Chronic Assessment and Plan: Current glucose 225 A1c 10.7 Initiate sliding scale will change to high-dose Hypoglycemia protocol Up home Levemir to 55 units BID Accu-Cheks AC and HS (5) Acute hyperglycemia: Code(s): R73.9 - Hyperglycemia, unspecified Status: Acute Assessment and Plan: Glucose was 225 labs Increase home levemir to 55 unit BID Increase sliding scale to high-dose NPH 10 units x 1 Trend labs Adjust therapy as needed (6) Chronic kidney disease, stage 3: Code(s): N18.3 - Chronic kidney disease, stage 3 (moderate) Status: Acute Assessment and Plan: Baseline creatinine appears to be 1.1-1.4 Patient appears to be a baseline this time Trend labs Avoid nephrotoxic medications (7) Bulging discs: Status: Chronic Assessment and Plan: Takes 20 mg of oxycodone Q 4-5 hours at home Continue home dose (8) Expressive aphasia: Code(s): R47.01 - Aphasia Status: Acute Assessment and Plan: Seems to be better at this time Seems to have a new onset of expressive aphasia Does take time to find words, and gets kind of irritated ST will continue to work with him DS: Summary Hospital Course Hospital Course: Patient is a 65-year-old male with past medical history of hypertension, hyperlipidemia, chronic pain, seizures, and diabetes who presented to the ED post tonic-clonic seizure. Patient had EEG performed which showed abnormal record due to presence of bihemispheric theta and delta activity. Carotid Doppler showed <50% stenosis. Head CT showed old infarct. Patient did experience moments of aphasia. He was having hard time finding words. Patient was evaluated by speech and went through modified barium swallow. Which patient noted to do well at that. Today patient is able to speak without hesitation and confined is words. Hyperglycemia was also an issue through this admission. Patient was found to be hyperglycemic and 300s insulin has been adjusted and patient was 225 on labs today. Neurology was consulted for this case who
[2021-04-28] MEDS: INSULIN HUMAN NPH (*BKC) 100 UNITS/ML 10 UNITS SUB-Q (12:39)
[2021-04-28] MEDS: POTASSIUM CHLORIDE 20 MEQ TABLET 40 MEQ PO (12:39)
[2021-05-01 09:44] LABS: Levetiracetam Keppra 29.5 mcg/mL (12.0-46.0)
== END 2021-04-28 14:35 | disposition home health service (06) ==
LOC: ANHED 17:06 → ANH2MED 19:57
PROVIDERS: Emergency Medicine; Nurse Practitioner; Physician Assistant; Admitting Provider Internal Medicine; Emergency Provider General Practice; PCP Family Medicine Adolescent Medicine; Visit Provider Internal Medicine
DX: G93.41 Metabolic encephalopathy (principal); G40.909 Epilepsy, unspecified, not intractable, without status epilepticus; R11.0 Nausea; E11.65 Type 2 diabetes mellitus with hyperglycemia; R13.10 Dysphagia, unspecified; I13.0 Hypertensive heart and chronic kidney disease with heart failure and stage 1 through stage 4 chronic kidney disease, or unspecified chronic kidney disease; E11.22 Type 2 diabetes mellitus with diabetic chronic kidney disease; N18.30 Chronic kidney disease, stage 3 unspecified; I50.30 Unspecified diastolic (congestive) heart failure; I65.23 Occlusion and stenosis of bilateral carotid arteries; D64.9 Anemia, unspecified; F41.8 Other specified anxiety disorders; I25.10 Atherosclerotic heart disease of native coronary artery without angina pectoris; I69.351 Hemiplegia and hemiparesis following cerebral infarction affecting right dominant side; I69.320 Aphasia following cerebral infarction; F03.90 Unspecified dementia, unspecified severity, without behavioral disturbance, psychotic disturbance, mood disturbance, and anxiety; E78.5 Hyperlipidemia, unspecified; G89.29 Other chronic pain; G47.33 Obstructive sleep apnea (adult) (pediatric); E11.40 Type 2 diabetes mellitus with diabetic neuropathy, unspecified; E11.51 Type 2 diabetes mellitus with diabetic peripheral angiopathy without gangrene; M47.816 Spondylosis without myelopathy or radiculopathy, lumbar region; F20.9 Schizophrenia, unspecified; K21.9 Gastro-esophageal reflux disease without esophagitis; Z95.5 Presence of coronary angioplasty implant and graft; Z79.4 Long term (current) use of insulin; Z79.891 Long term (current) use of opiate analgesic; Z79.82 Long term (current) use of aspirin
CPT/HCPCS: 36415; 51701; 70450; 70498; 71045; 72100; 74018; 80053; 80177; 81001; 82550; 82948; 83036; 83605; 83615; 83735; 84100; 84443; 85025; 92523; 92611; 93005; 93306; 93880; 95816; 96365; 96375; 96376; 97161; 97166; 99285; A9270; G0378; J1170; J1815; J1953; J2060; J2405; Q9967

== ENCOUNTER 2021-05-17 05:41 | Emergency (ER) | payer BC, OTHER, SELFPAY ==
[2021-05-17] VITALS (7 sets, daily range): BP systolic 131–177; BP diastolic 65–97; PULSE 83–97; RESP 14–18; TEMP 36.6; O2SAT 97–100
--- NOTE | ~2021-05-17 | XR_ITS ---
EXAMINATION: XR chest 1V DATE: 05/17/2021 06:57 INDICATION: Altered mental status. TECHNIQUE: A single frontal view of the chest was obtained. COMPARISON: Chest single view 04/26/2021, CT abdomen and pelvis 11/08/2019 FINDINGS: There are mild airspace opacities in the mid and lower lung zones. No pleural effusion or p neumothorax. The heart size is normal. IMPRESSION: 1. Mild airspace opacities in the mid and lower lung zones, consistent with atelectasis versus pneumo frankie. Reviewed, dictated and finalized at location A. RAL EDUCATION INSTRUCTOR IMPRESSION: 1. Mild airspace opacities in the mid and lower lung zones, consistent with ate lectasis versus pneumonia.
--- NOTE | ~2021-05-17 | CT_ITS ---
EXAMINATION: CT brain wo con DATE: 05/17/2021 06:54 INDICATION: Altered mental status. TECHNIQUE: Computed tomography (CT) of the head was performed without intravenous contrast. The mA wa s adjusted according to patient size. Iterative reconstruction technique was employed. The dose-lengt h product was 756.67 mGy-cm. COMPARISON: Head CT 04/26/2021 FINDINGS: There is an old infarct in left frontal lobe. There are scattered areas of low attenuation in the cerebral white matter. There is no intracranial hemorrhage, acute infarction, or abnormal intr acranial mass lesion. The ventricles are normal in size. There is mucosal thickening in the paranasal sinuses, worst in the right frontal and anterior right ethmoid sinuses. The mastoid air cells are no rmal. The orbits are normal. IMPRESSION: 1. Old infarct in left frontal lobe. 2. Stable moderate nonspecific cerebral white matter disease, which likely represents chronic small v essel ischemic disease. Reviewed, dictated and finalized at location A. RCE ATTORNEY IMPRESSION: 1. Old infarct in left frontal lobe. 2. Stable moderate nonspecific cerebral white matter disease, which likely repr esents chronic small vessel ischemic disease.
--- NOTE | 2021-05-17 06:03 | ECG_ITS ---
Measurements Intervals [place] Rate: 88 P: 175 ME: 295 QRS: 17 QRSD: 118 T: 78 QT: 382 QTc: 463 Interpretive Statements SINUS RHYTHM WITH FIRST DEGREE AV BLOCK VENTRICULAR PREMATURE COMPLEX BORDERLINE ST-T WAVE ABNORMALITY- HIGH LATERAL LEADS BASELINE ARTIFACT- I, II, AVR, AVL, AVF, V1-V3 ABNORMAL ECG Electronically Signed On 05-17-2021 6:53:22 AUDIT MGR by Baljeet Borja D.O.
[2021-05-17] MEDS: NALOXONE HCL 0.4 MG/ML VIAL IV PUSH ×2 (06:08→07:53)
[2021-05-17] MEDS: ONDANSETRON INJ 4 MG/2 ML VIAL IV PUSH (06:09)
--- NOTE | 2021-05-17 06:24 | PC.NURSE ---
Pt alert and upright on stretcher, with c/o back pain. Pt states he took 5-6 20mg oxycodone since midnight
[2021-05-17 06:27] LABS: Basophils Absolute Auto 0.1 K/mm3 (0.0-0.1); Basophils Percent Auto 0.7 % (0.2-1.2); Eosinophils Absolute Auto 0.4 K/mm3 (0-0.3); Eosinophils Percent Auto 3.9 % (0-4.4); Hematocrit 32.9 % (42.0-52.0); Hemoglobin 10.7 g/dL (14.0-18.0); Immature Granulocyte Absolute 0.03 K/mm3 (0.00-0.031); Immature Granulocyte Percent A 0.3 % (0-0.5); Lymphocytes Absolute Auto 2.15 K/mm3 (0.9-3.2); Mean Corpuscular HGB Conc 32.5 g/dl (32-36); Mean Corpuscular Volume 83.1 fl (80-100); Mean Platelet Volume 9.9 fl (7.4-10.4); Monocytes Absolute Auto 1.3 K/mm3 (0.1-0.6); Monocytes Percent Auto 12.8 % (2.6-8.5); Neutrophils Absolute Auto 6.3 K/mm3 (1.3-6.7); Neutrophils Percent Auto 61.3 % (45.5-73.1); Platelet Count Result 293 k/mm3 (150-375); Red Blood Count 3.96 M/mm3 (4.6-6.20); Red Cell Distribution Width 15.4 % (11.5-14.5); White Blood Count 10.3 K/mm3 (4.5-10.0)
[2021-05-17 06:36] LABS: Ethanol < 10 mg/dL (<10)
[2021-05-17 06:37] LABS: Alanine Aminotransferase 22 U/L (4-50); Albumin Level 4.2 g/dL (3.5-5.1); Alkaline Phosphatase 148 U/L (38-126); Anion Gap 13 mmol/L (8-16); Aspartate Amino Transferase 34 U/L (17-59); Bilirubin,Total 0.8 mg/dL (0.2-1.3); Blood Urea Nitrogen 26 mg/dL (9-20); Calcium 9.1 mg/dL (8.4-10.2); Carbon Dioxide 23 mmol/L (22-30); Chloride 101 mmol/L (98-107); Creatine Kinase 143 U/L (55-170); Estimated Glomerular Filt Rate 38; Glucose 320 mg/dL (65-110); Sodium 137 mmol/L (137-145)
[2021-05-17 06:38] LABS: Partial Thromboplastin Time 39.9 SECONDS (22.3-36.8)
[2021-05-17 06:41] LABS: INR 1.2; Prothrombin Time 14.8 Seconds (11.1-14.7)
[2021-05-17 06:42] LABS: Glucose Point of Care 322 mg/dl (65-105)
--- NOTE | 2021-05-17 06:42 | ED.AMS ---
HPI - Altered Mental Status General Chief Complaint: Altered Mental Status <Ekta Mccrary MD - Last Filed: 05/17/21 21:01> Stated Complaint: altered mental status <Ekta Mccrary MD - Last Filed: 05/17/21 21:01> Time Seen by Provider: 05/17/21 05:55 <Ekta Mccrary MD - Last Filed: 05/17/21 21:01> Source: family () <Ekta Mccrary MD - Last Filed: 05/17/21 21:01> Mode of arrival: ambulatory <Ekta Mccrary MD - Last Filed: 05/17/21 21:01> Limitations: altered mental status <Ekta Mccrary MD - Last Filed: 05/17/21 21:01> History of Present Illness HPI narrative: This is a 65 year old male with history of chronic pain syndrome, DM, hypertension, and seizure disorder who presents with his for evaluation of altered mental status. His states patient was started back on his pain medication by his primary care provider on Friday. Normally patient would allow her to control his pain medication doses. She states patient is taking too much of his pain medication and he is hiding it from her. She reports he was doing well until Friday evening. She states he is acting crazy . He stopped taking his medications Friday evening but she believes he is still taking his pain medication. She reports he acts like this when he has taking too much medication, and she did not have narcan at home. She denies pain having any falls. Patient is able to tell you his name. He otherwise is not answering most questions appropriately. <Ekta Mccrary MD - Last Filed: 05/17/21 21:01> Related Data Home Medications: Home Medications Medication Instructions Recorded Confirmed amlodipine 10 mg PO DAILY 07/07/19 04/26/21 lorazepam 1 mg PO BID PRN 07/07/19 04/26/21 levetiracetam [Keppra] 1,500 mg PO BID 09/16/20 04/26/21 pravastatin 40 mg PO HS 09/16/20 04/26/21 diltiazem HCl 60 mg PO BID 04/26/21 04/26/21 oxycodone 20 mg PO Q4-5H PRN 04/26/21 04/26/21 insulin aspart U-100 [Novolog 1 sliding scale dose SUBCUT 04/28/21 04/28/21 U-100 Insulin aspart] USEASDIRECTD <Ekta Mccrary MD - Last Filed: 05/17/21 21:01> Allergies/Adverse Reactions: Allergies Allergy/AdvReac Type Severity Reaction Status Date / Time Sulfa (Sulfonamide Allergy Intermediate RASH Verified 04/26/21 14:32 Antibiotics) tramadol Allergy Intermediate INCREASED Verified 04/26/21 14:32 HEART BEAT prochlorperazine Allergy Unknown MENTAL Verified 04/26/21 14:32 STATUS CHANGES verapamil Allergy Unknown DYSTONIC Verified 04/26/21 14:32 REACTION azithromycin Allergy Flushing Verified 04/26/21 14:32 metoclopramide [From Reglan] Allergy Other Verified 04/26/21 14:32 peanut Allergy Swelling Verified 04/26/21 14:33 of Lip/Tongue/Throat promethazine [From Phenergan] Allergy Other Verified 04/26/21 14:32 rosuvastatin AdvReac Intermediate ACHY, Verified 04/26/21 14:32 FATIGUE <Ekta Mccrary MD - Last Filed: 05/17/21 21:01> Review of Systems Review of Systems: ROS unobtainable: Yes unobtainable due to mental status <Ekta Mccrary MD - Last Filed: 05/17/21 21:01> PMFSH Past Medical History Medical History: Medical History Anemia Anxiety Arthritis Asthma Back fracture Bulging discs CAD (coronary artery disease) CHF (congestive heart failure) Chronic back pain Chronic kidney disease, stage 3 With baseline creatinine between 1.2 and 1.5 Coronary artery disease 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
[2021-05-17] MEDS: SODIUM CHLORIDE 0.9% IV 1,000 ML 999 ML IV CONT (07:06)
[2021-05-17 07:09] LABS: Add Urine Microscopic? YES; Appearance Urine Clear (Clear); Bilirubin Urine Negative (Negative); Blood Urine 2+ (Negative); Color Urine Yellow (Yellow); Glucose Urine UA 3+ mg/dL (Negative); Ketones Urine Negative (Negative); Leukocyte Esterase Ur Negative LEU/UL (Negative); Mucus Urine Rare /lpf; Nitrate Urine Negative (Negative); Protein Urine 2+ mg/dL (Negative); Specific Grav Ur 1.021 (1.001-1.035); Squamous Epithelial Cell Urine Rare /hpf (Few); Urobilinogen Urine Negative mg/dL (<2.0); WBC Urine 0-3 /hpf
[2021-05-17 07:29] LABS: Barbiturate Screen Urine Negative (Negative); Benzodiazepines Screen Urine Negative (Negative)
[2021-05-17 07:31] LABS: Amphetamine Screen Urine Negative (Negative); Cannabinoid Screen Urine Negative (Negative); Cocaine Screen Urine Negative (Negative); Methadone Screen Urine Negative (Negative); Opiate Screen Urine Positive (Negative); Phencyclidine Screen Urine Negative (Negative)
--- NOTE | 2021-05-17 11:04 | PC.NURSE ---
this RN noticed pt sitting on side of pt looking at monitor. Pt had let rail down, unhooked himself from monitors, turned off monitor and was pushing on the blank screen of the monitor. Pt put back in bed and placed on a bed alarm
--- NOTE | 2021-05-17 12:20 | PC.NURSE ---
Dr. Mcnair in speaking pt
--- NOTE | 2021-05-17 12:27 | PC.NURSE ---
Evette in lab aware to add on Acetaminophen level to blood in the lab, per Dr. Mcnair
--- NOTE | 2021-05-17 12:36 | PC.NURSE ---
ordered lunch tray
--- NOTE | 2021-05-17 12:50 | PC.NURSE ---
called pt spouse to come and get pt at this time.
== END 2021-05-17 13:13 | disposition home or self-care (01) ==
PROVIDERS: Emergency Provider General Practice; PCP Family Medicine Adolescent Medicine
DX: R41.82 Altered mental status, unspecified (principal); T50.905A Adverse effect of unspecified drugs, medicaments and biological substances, initial encounter; I25.10 Atherosclerotic heart disease of native coronary artery without angina pectoris; I13.0 Hypertensive heart and chronic kidney disease with heart failure and stage 1 through stage 4 chronic kidney disease, or unspecified chronic kidney disease; I50.9 Heart failure, unspecified; N18.30 Chronic kidney disease, stage 3 unspecified; E11.22 Type 2 diabetes mellitus with diabetic chronic kidney disease; Z79.4 Long term (current) use of insulin
CPT/HCPCS: 36415; 70450; 71045; 80053; 80307; 81001; 82550; 82948; 85025; 85610; 85730; 93005; 96361; 96365; 96375; 96376; 99284; J2310; J2405; J7030

== ENCOUNTER 2021-06-01 18:17 | Inpatient (IN) | payer BC, OTHER, SELFPAY ==
--- NOTE | ~2021-06-01 | CT_ITS ---
EXAMINATION: CT brain wo con DATE: 06/01/2021 20:37 INDICATION: Altered mental status. Dementia. Possible overdose. TECHNIQUE: Computed tomography (CT) of the head was performed without intravenous contrast. Sagittal and coronal reconstructions were performed. The mA was adjusted according to patient size. Iterative reconstruction technique was employed. The dose-length product was 832.33 mGy-cm. COMPARISON: head CT dated 05/17/2021 FINDINGS: Again seen is a small old infarct in the posterior left frontal lobe. No acute intracranial hemorrhag e, acute infarction or abnormal extra axial fluid collection. There is mild to moderate scattered whi te matter hypoattenuation consistent with chronic small vessel ischemic disease. Ventricles are norm al and symmetric. No mass/mass effect. Mucosal thickening in the right frontal and anterior right eth moid sinuses and the less degree in the bilateral maxillary sinuses. Postoperative change of prior ri ght antral window procedure.. The orbits and mastoid air cells are normal. Intracranial calcified cer ebral atherosclerosis is noted. IMPRESSION: 1. No acute intracranial process. 2. Unchanged small old infarct in the left frontal lobe. 3. Unchanged mild to moderate scattered white matter hypoattenuation consistent with chronic small ve ssel ischemic disease. Reviewed, dictated and finalized at location H. VERY STOCK CLERK IMPRESSION: 1. No acute intracranial process. 2. Unchanged small old infarct in the left frontal lobe. 3. Unchanged mild to moderate scattered white matter hypoattenuation consistent with chronic small vessel ischemic disease.
--- NOTE | ~2021-06-01 | XR_ITS ---
EXAMINATION: XR chest 1V portable DATE: 06/03/2021 20:00 INDICATION: Tachypnea TECHNIQUE: frontal view of the chest was obtained. COMPARISON: Chest radiograph dated 05/17/2021 FINDINGS: Resolution of prior opacities in the right mid to lower lung and decrease in now mild opacities in th e left lower lung zone. No pleural effusion or pneumothorax. Heart size is normal. IMPRESSION: 1. Decreased now mild opacities in the left lower lung zone which could represent atelectasis, mild p ulmonary edema or pneumonia. Reviewed, dictated and finalized at location H. ION INSPECTOR IMPRESSION: 1. Decreased now mild opacities in the left lower lung zone which could represe nt atelectasis, mild pulmonary edema or pneumonia.
[2021-06-01 18:20] VITALS: BP 182/110; PULSE 138; RESP 34; TEMP 36.6; O2SAT 95
--- NOTE | 2021-06-01 18:32 | PC.NURSE ---
patient given 2mg ativan IV per verbal order from
--- NOTE | 2021-06-01 18:33 | PC.NURSE ---
patient placed in soft restraints at this time due to patient being combative.
[2021-06-01] MEDS: LORazepam INJ (*CRX) 2 MG/ML VIAL (18:35)
--- NOTE | 2021-06-01 18:35 | ECG_ITS ---
Measurements Intervals [place] Rate: 127 P: [place]: 0 QRS: 0 QRSD: 120 T: 91 QT: 346 QTc: 504 Interpretive Statements SINUS OR ECTOPIC ATRIAL TACHYCARDIA WITH FIRST DEGREE AV BLOCK ATRIAL PREMATURE COMPLEXES INTRAVENTRICULAR CONDUCTION DELAY BORDERLINE T WAVE ABNORMALITY- DIFFUSE LEADS BASELINE ARTIFACT- III, AVF, V2 ABNORMAL ECG Electronically Signed On 06-01-2021 20:12:45 TEXTILE FINISHER by Baljeet Borja D.O.
--- NOTE | 2021-06-01 18:38 | ED.AMS ---
HPI - Altered Mental Status General Chief Complaint: Altered Mental Status Stated Complaint: AMS Time Seen by Provider: 06/01/21 18:35 Source: EMS Mode of arrival: EMS Limitations: altered mental status History of Present Illness HPI narrative: Patient is a 65-year-old male brought in by EMS due to altered mental status. According to EMS patient was going in and out of consciousness at home while in the bathroom, was given Narcan which reversed his symptoms. Upon arrival to the emergency room patient is alert but combative. Per EMS, patient has a history of drug overdose, takes oxycodone for pain. Related Data Home Medications Medication Instructions Recorded Confirmed amlodipine 10 mg PO DAILY 07/07/19 04/26/21 lorazepam 1 mg PO BID PRN 07/07/19 04/26/21 levetiracetam [Keppra] 1,500 mg PO BID 09/16/20 04/26/21 pravastatin 40 mg PO HS 09/16/20 04/26/21 diltiazem HCl 60 mg PO BID 04/26/21 04/26/21 oxycodone 20 mg PO Q4-5H PRN 04/26/21 04/26/21 insulin aspart U-100 [Novolog 1 sliding scale dose SUBCUT 04/28/21 04/28/21 U-100 Insulin aspart] USEASDIRECTD Allergies Allergy/AdvReac Type Severity Reaction Status Date / Time Sulfa (Sulfonamide Allergy Intermediate RASH Verified 04/26/21 14:32 Antibiotics) tramadol Allergy Intermediate INCREASED Verified 04/26/21 14:32 HEART BEAT prochlorperazine Allergy Unknown MENTAL Verified 04/26/21 14:32 STATUS CHANGES verapamil Allergy Unknown DYSTONIC Verified 04/26/21 14:32 REACTION azithromycin Allergy Flushing Verified 04/26/21 14:32 metoclopramide [From Reglan] Allergy Other Verified 04/26/21 14:32 peanut Allergy Swelling Verified 04/26/21 14:33 of Lip/Tongue/Throat promethazine [From Phenergan] Allergy Other Verified 04/26/21 14:32 rosuvastatin AdvReac Intermediate ACHY, Verified 04/26/21 14:32 FATIGUE Review of Systems Review of Systems: All systems reviewed & are unremarkable except as noted in HPI and below ROS unobtainable: Yes unobtainable due to mental status Constitutional: Constitutional: Reports as per HPI [facility] Past Medical History Medical History Anemia Anxiety Arthritis Asthma Back fracture Bulging discs CAD (coronary artery disease) CHF (congestive heart failure) Chronic back pain Chronic kidney disease, stage 3 With baseline creatinine between 1.2 and 1.5 Coronary artery disease 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 Large SDH after head trauma from a fall. 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 PVD (peripheral vascular disease) Schizophreniform disorder Seasonal allergies Septic prepatellar bursitis of left knee MRSA September 2018 Shingles Spinal stenosis With history of herniated discs and stress fractures on chronic narcotic therapy Staph infection SVT (supraventricular tachycardia) With history of cardiac ablation in 2001 Type 2 diabetes mellitus with hyperglycemia Surgical History Surgical History H/O cardiac radiofrequency ablation for SVT H/O excision of ganglion cyst H/O heart artery stent Placed in 2006 H/O nasal polypectomy H/O prior ablation treatment History of arthroscopic knee surgery Bilateral History of cardiac c
[2021-06-01 18:44] LABS: Glucose Point of Care 474 mg/dl (65-105)
[2021-06-01 18:55] LABS: pH ABG 7.515 (7.350-7.450)
[2021-06-01 18:56] LABS: Alveolar/Arterial O2 Gradient 43.1 mmHg; Base Excess ABG 8.6 mEq/l (+/-2.0); HCO3 ABG 10.9 mEq/l (22.0-26.0); Oxygen Content ABG 18.9 %vol (16.0-22.0); Oxygen Saturation ABG 97.8 % (95.0-100.0); PCO2 ABG 13.8 mmHg (35.0-45.0); PO2 ABG 90.1 mmHg (80.0-100.0); Total Hemoglobin 13.9 g/dL (12.0-18.0)
[2021-06-01 18:57] LABS: Device ROOM AIR; Fractional Inspired Oxygen 21 %; Modified Allen's Test Unable to perform; Oxyhemoglobin 96.3 % THb (90.0-100.0); PO2 FiO2 Ratio Arterial Blood 4.29 %; Site Drawn RIGHT RADIAL
[2021-06-01 19:03] LABS: Basophils Absolute Auto 0.1 K/mm3 (0.0-0.1); Basophils Percent Auto 0.4 % (0.2-1.2); Eosinophils Absolute Auto 0.1 K/mm3 (0-0.3); Eosinophils Percent Auto 0.3 % (0-4.4); Hematocrit 39.9 % (42.0-52.0); Hemoglobin 12.5 g/dL (14.0-18.0); Immature Granulocyte Absolute 0.23 K/mm3 (0.00-0.031); Lymphocytes Percent Auto 2.2 % (18.3-44.2); Mean Corpuscular HGB Conc 31.3 g/dl (32-36); Mean Platelet Volume 10.6 fl (7.4-10.4); Monocytes Absolute Auto 1.5 K/mm3 (0.1-0.6); Monocytes Percent Auto 6.4 % (2.6-8.5); Neutrophils Absolute Auto 20.8 K/mm3 (1.3-6.7); Neutrophils Percent Auto 89.7 % (45.5-73.1); Platelet Count Result 394 k/mm3 (150-375); Red Blood Count 4.81 M/mm3 (4.6-6.20); Red Cell Distribution Width 15.7 % (11.5-14.5); White Blood Count 23.2 K/mm3 (4.5-10.0)
[2021-06-01 19:10] LABS: Add Urine Microscopic? YES; Appearance Urine Clear (Clear); Bacteria Urine Trace /hpf; Bilirubin Urine Negative (Negative); Blood Urine 3+ (Negative); Color Urine Yellow (Yellow); Glucose Urine UA 3+ mg/dL (Negative); Ketones Urine 1+ mg/dL (Negative); Leukocyte Esterase Ur Negative LEU/UL (Negative); Mucus Urine Rare /lpf; Nitrate Urine Negative (Negative); Protein Urine 3+ mg/dL (Negative); RBC Urine 51-75 /hpf (0-2); Specific Grav Ur 1.021 (1.001-1.035); Urobilinogen Urine Negative mg/dL (<2.0)
[2021-06-01 19:12] LABS: INR 1.3; Prothrombin Time 15.8 Seconds (11.1-14.7)
[2021-06-01 19:13] LABS: Ammonia < 9 umol/L (9-30); Ethanol < 10 mg/dL (<10); Partial Thromboplastin Time 37.6 SECONDS (22.3-36.8)
[2021-06-01 19:20] LABS: Albumin Level 4.5 g/dL (3.5-5.1); Alkaline Phosphatase 222 U/L (38-126); Anion Gap 33 mmol/L (8-16); Aspartate Amino Transferase 43 U/L (17-59); Bilirubin,Total 1.3 mg/dL (0.2-1.3); Blood Urea Nitrogen 62 mg/dL (9-20); Calcium 9.9 mg/dL (8.4-10.2); Carbon Dioxide 10 mmol/L (22-30); Chloride 95 mmol/L (98-107); Estimated CRCL calculation 30 ml/min; Estimated Glomerular Filt Rate 24; Glucose 594 mg/dL (65-110); Lactic Acid Reflex 8.5 mmol/L (0.7-2.1); Potassium 4.2 mmol/L (3.4-5.0); Sodium 138 mmol/L (137-145)
[2021-06-01 19:24] LABS: Alanine Aminotransferase 31 U/L (4-50)
[2021-06-01 19:26] LABS: Troponin I 0.029 ng/mL (0.000-0.034)
[2021-06-01 19:27] VITALS: BP 202/113; PULSE 127; RESP 32; O2SAT 100
[2021-06-01] MEDS: LACTATED RINGERS 2,000 ML 999 ML IV CONT (19:31)
[2021-06-01 19:35] LABS: Amphetamine Screen Urine Negative (Negative); Barbiturate Screen Urine Negative (Negative); Benzodiazepines Screen Urine Negative (Negative); Cannabinoid Screen Urine Negative (Negative); Cocaine Screen Urine Negative (Negative); Methadone Screen Urine Negative (Negative); Opiate Screen Urine Positive (Negative); Phencyclidine Screen Urine Negative (Negative)
[2021-06-01 20:14] LABS: CRP 8.8 mg/dL (<1.0)
--- NOTE | 2021-06-01 20:23 | PM.IMHP ---
H&P: HPI History of Present Illness Date/Time: 06/01/21 20:23 Chief Complaint: Altered mental status Narrative: This is a 65-year-old male with past medical history significant for opiate dependence, chronic pain syndrome, coronary artery disease, congestive heart failure, diabetes mellitus insulin dependent, chronic kidney disease, cerebrovascular accident, dementia, depression, gastroesophageal reflux disease, obstructive sleep apnea with no CPAP, peripheral neuropathy, peripheral vascular disease. Patient was brought to the emergency room via EMS due to altered mental status called 911 upon arrival of EMS to the house patient reportedly was laying in the bathroom floor in and out of consciousness received Narcan which walking up however patient was alert but became combative upon arrival to emergency room. Most of the history has been obtained upon reviewing medical records as patient is now stuporous. As per history patient has had overdosed on prescription opiates. Preliminary workup was significant for a blood glucose in the 500s with anion gap of 30 BUN 67 creatinine 2.7 white count of 23,000, lactic acid of 8 ABG a pH of 7.5 CO2 of 13 PO2 of [address] of the head showed old strokes, a COVID-19 PCR is in progress. Decision has been made to admit the patient for further evaluation, management and treatment. 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 Large SDH after head trauma from a fall. 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 PVD (peripheral vascular disease) Schizophreniform disorder Seasonal allergies Septic prepatellar bursitis of left knee MRSA September 2018 Shingles Spinal stenosis With history of herniated discs and stress fractures on chronic narcotic therapy Staph infection SVT (supraventricular tachycardia) With history of cardiac ablation in 2001 Type 2 diabetes mellitus with hyperglycemia Surgical History Surgical History H/O cardiac radiofrequency ablation for SVT H/O excision of ganglion cyst H/O heart artery stent Placed in 2006 H/O nasal polypectomy H/O prior ablation treatment History of arthroscopic knee surgery Bilateral History of cardiac catheterization 2014 complicated by prizmetal's angina History of colonoscopy with polypectomy 2016 demonstrating internal hemorrhoids, external hemorrhoids and transverse colon polyp status post polypectomy History of coronary artery stent placement History of esophagogastroduodenoscopy November 2016 demonstrating reflux esophagitis and gastritis History of laparoscopic cholecystectomy October 2018 History of repair of ACL History of sinus surgery Anterior ethmoid, right maxillary and frontal sinus surgery 2012 History of tonsillectomy History of total bilateral knee replacement Performed [facility] [place]
[2021-06-01] MEDS: INSULIN HUMAN REGULAR (*BKC) 100 UNITS/ML 10 UNITS IV PUSH (21:18)
[2021-06-01 21:28] VITALS: BP 155/88; PULSE 123; RESP 28; O2SAT 99
[2021-06-01 21:58] LABS: Reflex Lactic Acid Yes or No Add Lactic
[2021-06-01 22:11] LABS: Glucose Point of Care 379 mg/dl (65-105)
[2021-06-01] MEDS: INSULIN HUMAN REGULAR (*BKC) 100 UNITS in SODIUM CHLORIDE 0.9% IV 99 ML 6.38 UNITS IV CONT (22:25)
[2021-06-01 22:37] VITALS: BP 129/85; PULSE 119; RESP 28; O2SAT 98
[2021-06-01] MEDS: LACTATED RINGERS 1,000 ML 125 ML IV CONT (23:11)
[2021-06-01 23:23] LABS: Glucose Point of Care 344 mg/dl (65-105)
[2021-06-01 23:23] LABS: Lactic Acid 4.5 mmol/L (0.7-2.1)
[2021-06-02] VITALS (14 sets, daily range): BP systolic 134–197; BP diastolic 86–119; PULSE 115–134; RESP 20–30; TEMP 37–38.3; O2SAT 94–99; BMI 29.9
[2021-06-02 00:50] LABS: Glucose Point of Care 360 mg/dl (65-105)
[2021-06-02 01:52] LABS: Glucose Point of Care 341 mg/dl (65-105)
[2021-06-02 02:53] LABS: Glucose Point of Care 268 mg/dl (65-105)
[2021-06-02 03:52] LABS: Glucose Point of Care 179 mg/dl (65-105)
[2021-06-02] MEDS: DEXTROSE 5%/0.45% SOD CHL 1,000 ML 100 ML IV CONT (04:37)
[2021-06-02 04:48] LABS: Glucose Point of Care 139 mg/dl (65-105)
[2021-06-02 04:50] LABS: Lactic Acid Reflex 1.9 mmol/L (0.7-2.1)
--- NOTE | 2021-06-02 04:51 | PC.NURSE ---
EMEKA received from Dr. Kirkland to discontinue insulin drip
[2021-06-02 04:56] LABS: Anion Gap 15 mmol/L (8-16); Blood Urea Nitrogen 56 mg/dL (9-20); Calcium 9.7 mg/dL (8.4-10.2); Carbon Dioxide 23 mmol/L (22-30); Chloride 103 mmol/L (98-107); Estimated CRCL calculation 38 ml/min; Estimated Glomerular Filt Rate 32; Glucose 162 mg/dL (65-110); Potassium 3.1 mmol/L (3.4-5.0); Sodium 141 mmol/L (137-145)
--- NOTE | 2021-06-02 04:58 | ECG_ITS ---
Measurements Intervals [place] Rate: 111 P: [place]: 0 QRS: -9 QRSD: 126 T: 118 QT: 313 QTc: 426 Interpretive Statements SINUS OR ECTOPIC ATRIAL TACHYCARDIA WITH FIRST DEGREE AV BLOCK MODERATE INTRAVENTRICULAR CONDUCTION DELAY [110+ ms QRS DURATION] NONSPECIFIC ST & T-WAVE ABNORMALITY- ANTEROLAT/HIGH LAT LEADS BASELINE ARTIFACT- II, III, AVR, AVF, V2-V6 ABNORMAL ECG Electronically Signed On 06-04-2021 16:42:29 LEAD ATG DEVELOPER by Baljeet Borja D.O.
[2021-06-02] MEDS: INSULIN GLARGINE (*BKC) 100 UNITS/ML 55 UNITS SUB-Q (05:09)
[2021-06-02 06:14] LABS: Glucose Point of Care 208 mg/dl (65-105)
--- NOTE | 2021-06-02 06:30 | ADMGEN ---
This patient, Mark Anthony Westfall Jr., was admitted to [facility] Surg Room 306-02. Patient/family oriented to hospital policies and general routines including ID bracelet, bed and alarms, visiting hours, pain management, procedures, bathroom and other care routines, personal items, smoking policy, room service/diet, and visiting hours. Information on how to activate the Rapid Response Team has been discussed. Patient/Family are encouraged to report perceived risks to care and to ask questions if they do not understand what they are told or what they should do.
[2021-06-02] MEDS: LACTATED RINGERS 1,000 ML 125 ML IV CONT ×2 (06:54→15:38)
--- NOTE | 2021-06-02 11:55 | PM.IMPN ---
Progress Note: A&P Assessment and Plan (1) Altered mental status: Qualifiers: Altered mental status type: unspecified Qualified Code(s): R41.82 - Altered mental status, unspecified Code(s): R41.82 - Altered mental status, unspecified Status: Acute Assessment and Plan: This could be multifactorial Could be endocrine metabolic secondary to DKA Also chronic opiate use Likely sepsis Sepsis workup in progress Started on broad-spectrum antibiotics IV fluids running Continue to monitor intake and output Supportive care 06/02/2021 interval history: patient remains clinically stable however he still somnolent and unable to provide detail review of symptom, the patient may have COVID-19 being tested an isolated, will continue to monitor will have a PT OT evaluate the patient and further recommendation to follow. (2) DKA (diabetic ketoacidosis): Qualifiers: Diabetes mellitus complication detail: without coma Diabetes mellitus type: other specified (including GRIS) Qualified Code(s): E13.10 - Other specified diabetes mellitus with ketoacidosis without coma Code(s): E11.10 - Type 2 diabetes mellitus with ketoacidosis without coma Status: Acute Assessment and Plan: Currently on insulin drip IV fluids Continue to monitor Supportive care (3) Drug overdose: Qualifiers: Encounter type: initial encounter Injury intent: undetermined intent Qualified Code(s): T50.904A - Poisoning by unspecified drugs, medicaments and biological substances, undetermined, initial encounter Code(s): T50.901A - Poisoning by unspecified drugs, medicaments and biological substances, accidental (unintentional), initial encounter Status: Acute Assessment and Plan: Patient receive Narcan Supportive care (4) Acute metabolic encephalopathy: Code(s): G93.41 - Metabolic encephalopathy Status: Acute Assessment and Plan: Supportive care (5) Type 2 diabetes mellitus with hyperglycemia: Qualifiers: Diabetes mellitus halfway insulin use: with predatory animal exterminator use Qualified Code(s): E11.65 - Type 2 diabetes mellitus with hyperglycemia; Z79.4 - terminal superintendent (current) use of insulin Code(s): E11.65 - Type 2 diabetes mellitus with hyperglycemia Status: Acute Assessment and Plan: Will resume home meds Currently NPO Glycated hemoglobin A1c of 12 (6) CAD (coronary artery disease): Code(s): I25.10 - Atherosclerotic heart disease of [place] coronary artery without angina pectoris Status: Acute Assessment and Plan: Will resume home meds Chest pain-free (7) Dysphagia: Qualifiers: Dysphagia type: unspecified Qualified Code(s): R13.10 - Dysphagia, unspecified Code(s): R13.10 - Dysphagia, unspecified Status: Acute Assessment and Plan: Aspiration precautions (8) Acute kidney injury: Code(s): N17.9 - Acute kidney failure, unspecified Status: Acute Assessment and Plan: Likely secondary to pre renal azotemia on chronic renal disease Receiving IV fluids Renal ultrasound in a.m. (9) Chronic kidney disease, stage 3: Code(s): N18.3 - Chronic kidney disease, stage 3 (moderate) Status: Acute Assessment and Plan: Continue to monitor Patient is diabetic and hypertensive and coronary artery disease (10) GERD (gastroesophageal reflux disease): Code(s): K21.9 - Gastro-esophageal reflux disease without esophagitis Status: Acute Assessment and Plan: PPI to be continued (11) Diastolic dysfunction: Code(s): I51.89 - Other ill-defined heart diseases Status: Acute Assessment and Plan: Patient appears dry on physical exam Continue to monitor intake and output (12) Obstructive sleep apnea: Code(s): G47.33 - Obstructive sleep apnea (adult) (pediatric) Status: Acute Assessment and Plan: History of intolera
[2021-06-02 16:44] LABS: Anion Gap 20 mmol/L (8-16); Blood Urea Nitrogen 54 mg/dL (9-20); Calcium 9.6 mg/dL (8.4-10.2); Carbon Dioxide 14 mmol/L (22-30); Chloride 106 mmol/L (98-107); Estimated CRCL calculation 35 ml/min; Estimated Glomerular Filt Rate 29; Glucose 338 mg/dL (65-110); Magnesium 2.1 mg/dL (1.6-2.3); Potassium 3.7 mmol/L (3.4-5.0); Sodium 140 mmol/L (137-145)
--- NOTE | 2021-06-02 16:51 | PC.NURSE ---
attempted to call pt's spouse, Kylie [phone], for admission questions. no answer
[2021-06-02 21:35] LABS: Glucose Point of Care 346 mg/dl (65-105)
[2021-06-03] VITALS (13 sets, daily range): BP systolic 159–189; BP diastolic 89–119; PULSE 107–135; RESP 22–25; TEMP 37.1–38.2; O2SAT 93–95
[2021-06-03] MEDS: LACTATED RINGERS 1,000 ML 125 ML IV CONT ×2 (00:54→17:54)
[2021-06-03] MEDS: hydrALAZINE HCL 20 MG/ML VIAL 10 MG IV PUSH (03:43)
[2021-06-03] MEDS: HYDROmorphone HCL INJ (*CRX) 1 MG/ML SYR IV PUSH (03:44)
[2021-06-03 06:20] LABS: Hematocrit 44.3 % (42.0-52.0); Mean Corpuscular HGB Conc 29.3 g/dl (32-36); Mean Corpuscular Hemoglobin 26.2 pg (26-34); Mean Corpuscular Volume 89.1 fl (80-100); Mean Platelet Volume 11.2 fl (7.4-10.4); Platelet Count Result 213 k/mm3 (150-375); Red Blood Count 4.97 M/mm3 (4.6-6.20); Red Cell Distribution Width 16.9 % (11.5-14.5); White Blood Count 9.2 K/mm3 (4.5-10.0)
[2021-06-03 06:42] LABS: Magnesium 2.1 mg/dL (1.6-2.3)
[2021-06-03 09:31] LABS: Anion Gap 19 mmol/L (8-16); Blood Urea Nitrogen 53 mg/dL (9-20); Carbon Dioxide 11 mmol/L (22-30); Chloride 111 mmol/L (98-107); Estimated CRCL calculation 40 ml/min; Estimated Glomerular Filt Rate 34; Glucose 425 mg/dL (65-110); Potassium 4.2 mmol/L (3.4-5.0); Sodium 141 mmol/L (137-145)
[2021-06-03] MEDS: INSULIN GLARGINE (*BKC) 100 UNITS/ML 44 UNITS SUB-Q ×2 (09:41→18:23)
--- NOTE | 2021-06-03 11:32 | PCPTNOTE ---
attempted PT evaluation, unable to arouse pt; discussed with LIZBETH Mauro;
[2021-06-03 11:58] LABS: Glucose Point of Care 378 mg/dl (65-105)
--- NOTE | 2021-06-03 12:25 | PCOTNOTE ---
Attempted to evaluated for occupational therapy. Pt. was unable to be aroused, consistent with experience from PT and nursing today. Will attempt to evaluate when appropriate.
--- NOTE | 2021-06-03 14:05 | PM.IMPN ---
Progress Note: A&P Assessment and Plan (1) Altered mental status: Qualifiers: Altered mental status type: unspecified Qualified Code(s): R41.82 - Altered mental status, unspecified Code(s): R41.82 - Altered mental status, unspecified Status: Acute Assessment and Plan: This could be multifactorial Could be endocrine metabolic secondary to DKA Also chronic opiate use Likely sepsis Sepsis workup in progress Started on broad-spectrum antibiotics IV fluids running Continue to monitor intake and output Supportive care 06/02/2021 interval history: patient remains clinically stable however he still somnolent and unable to provide detail review of symptom, the patient may have COVID-19 being tested an isolated, will continue to monitor will have a PT OT evaluate the patient and further recommendation to follow. 06/03/2021 interval history: patient remains clinically stable however he still somnolent and unable to provide detail review of symptom, unable to do swallow study as patient is not comprehending, will switch Keppra to IV, will start Lopressor 5 mg PRN IV keep the heart rate below 100 and monitor his BP, the patient may have COVID-19 being tested an isolated, will continue to monitor will have a PT OT evaluate the patient and further recommendation to follow. (2) DKA (diabetic ketoacidosis): Qualifiers: Diabetes mellitus complication detail: without coma Diabetes mellitus type: other specified (including GRIS) Qualified Code(s): E13.10 - Other specified diabetes mellitus with ketoacidosis without coma Code(s): E11.10 - Type 2 diabetes mellitus with ketoacidosis without coma Status: Acute Assessment and Plan: Currently on insulin drip IV fluids Continue to monitor Supportive care (3) Drug overdose: Qualifiers: Encounter type: initial encounter Injury intent: undetermined intent Qualified Code(s): T50.904A - Poisoning by unspecified drugs, medicaments and biological substances, undetermined, initial encounter Code(s): T50.901A - Poisoning by unspecified drugs, medicaments and biological substances, accidental (unintentional), initial encounter Status: Acute Assessment and Plan: Patient receive Narcan Supportive care (4) Acute metabolic encephalopathy: Code(s): G93.41 - Metabolic encephalopathy Status: Acute Assessment and Plan: Supportive care (5) Type 2 diabetes mellitus with hyperglycemia: Qualifiers: Diabetes mellitus detention insulin use: with detention use Qualified Code(s): E11.65 - Type 2 diabetes mellitus with hyperglycemia; Z79.4 - supervisor intermediates (current) use of insulin Code(s): E11.65 - Type 2 diabetes mellitus with hyperglycemia Status: Acute Assessment and Plan: Will resume home meds Currently NPO Glycated hemoglobin A1c of 12 (6) CAD (coronary artery disease): Code(s): I25.10 - Atherosclerotic heart disease of [place] coronary artery without angina pectoris Status: Acute Assessment and Plan: Will resume home meds Chest pain-free (7) Dysphagia: Qualifiers: Dysphagia type: unspecified Qualified Code(s): R13.10 - Dysphagia, unspecified Code(s): R13.10 - Dysphagia, unspecified Status: Acute Assessment and Plan: Aspiration precautions (8) Acute kidney injury: Code(s): N17.9 - Acute kidney failure, unspecified Status: Acute Assessment and Plan: Likely secondary to pre renal azotemia on chronic renal disease Receiving IV fluids Renal ultrasound in a.m. (9) Chronic kidney disease, stage 3: Code(s): N18.3 - Chronic kidney disease, stage 3 (moderate) Status: Acute Assessment and Plan: Continue to monitor Patient is diabetic and hypertensive and coronary artery disease (10) GERD (gastroesophageal reflux disease): Code(s): K21.9 - Gastro-esophageal reflux disease
[2021-06-03] MEDS: METOPROLOL TARTRATE INJ 5 MG/5 ML VIAL IV PUSH ×3 (15:01→23:21)
[2021-06-03] MEDS: ENOXAPARIN 40 MG/0.4 ML SYRINGE SUB-Q ×2 (15:34→21:35)
[2021-06-03 17:04] LABS: SARS-CoV-2 RNA PCR Negative
[2021-06-03 18:22] LABS: Glucose Point of Care 430 mg/dl (65-105)
[2021-06-03] MEDS: INSULIN ASPART (*BKC) 100 UNITS/ML 8 UNITS SUB-Q ×2 (18:33→20:03)
[2021-06-03] MEDS: NALOXONE HCL 0.4 MG/ML VIAL IV PUSH (20:00)
[2021-06-03 20:08] LABS: Alveolar/Arterial O2 Gradient 48.5 mmHg; Base Excess ABG 0.1 mEq/l (+/-2.0); HCO3 ABG 22.9 mEq/l (22.0-26.0); Oxygen Content ABG 19.4 %vol (16.0-22.0); Oxygen Saturation ABG 93.5 % (95.0-100.0); Oxyhemoglobin 91.6 % THb (90.0-100.0); PCO2 ABG 32.2 mmHg (35.0-45.0); PO2 ABG 62.7 mmHg (80.0-100.0); Total Hemoglobin 15.1 g/dL (12.0-18.0); pH ABG 7.469 (7.350-7.450)
[2021-06-03 20:09] LABS: Device ROOM AIR; Fractional Inspired Oxygen 21 %; Modified Allen's Test Pass; PO2 FiO2 Ratio Arterial Blood 2.99 %; Site Drawn RIGHT RADIAL
[2021-06-03 20:09] LABS: Glucose Point of Care 378 mg/dl (65-105)
[2021-06-03 20:26] LABS: Lactic Acid Reflex 2.2 mmol/L (0.7-2.1)
[2021-06-03 20:27] LABS: Anion Gap 8 mmol/L (8-16); Blood Urea Nitrogen 56 mg/dL (9-20); Calcium 9.7 mg/dL (8.4-10.2); Carbon Dioxide 21 mmol/L (22-30); Chloride 114 mmol/L (98-107); Estimated CRCL calculation 36 ml/min; Estimated Glomerular Filt Rate 30; Glucose 474 mg/dL (65-110); Potassium 3.6 mmol/L (3.4-5.0); Sodium 143 mmol/L (137-145)
[2021-06-03 20:34] LABS: NT Pro B Type Natriuretic Pept 5510 pg/mL (5-100)
--- NOTE | 2021-06-03 20:46 | PM.EVENT ---
Event Note Event Note Event Note: Rapid response was called for patient after patient was found to be in respiratory distress and stuporous barely responsive to painful stimuli rapid shallow breathing. Patient with history of chronic pain on chronic opiates, type 2 diabetes mellitus insulin dependent
[2021-06-03 21:47] LABS: Glucose Point of Care 379 mg/dl (65-105)
[2021-06-03] MEDS: INSULIN GLARGINE (*BKC) 100 UNITS/ML 20 UNITS SUB-Q (22:57)
[2021-06-03 23:12] LABS: Reflex Lactic Acid Yes or No Add Lactic
[2021-06-03] MEDS: LORazepam INJ (*CRX) 2 MG/ML VIAL IV PUSH (23:21)
[2021-06-03 23:42] LABS: Lactic Acid 2.3 mmol/L (0.7-2.1)
[2021-06-04] MEDS: MORPHINE SULFATE (*CRX) 4 MG/ML INJ IV PUSH ×2 (00:23→05:35)
[2021-06-04 00:57] VITALS: BP 147/84; PULSE 118; RESP 22; TEMP 39.5; O2SAT 95
[2021-06-04 01:27] VITALS: TEMP 39.5
[2021-06-04] MEDS: LORazepam INJ (*CRX) 2 MG/ML VIAL IV PUSH ×2 (01:27→05:37)
--- NOTE | 2021-06-04 02:59 | PC.NURSE ---
Patient changed to comfort measures only.
[2021-06-04 06:29] LABS: Hematocrit 23.5 % (42.0-52.0); Mean Corpuscular HGB Conc 29.4 g/dl (32-36); Mean Corpuscular Hemoglobin 25.7 pg (26-34); Mean Corpuscular Volume 87.4 fl (80-100); Mean Platelet Volume 11.5 fl (7.4-10.4); Platelet Count Result 275 k/mm3 (150-375); Red Blood Count 2.69 M/mm3 (4.6-6.20); Red Cell Distribution Width 17.3 % (11.5-14.5); White Blood Count 14.6 K/mm3 (4.5-10.0)
[2021-06-04 06:46] LABS: Anion Gap 7 mmol/L (8-16); Blood Urea Nitrogen 70 mg/dL (9-20); Calcium 9.1 mg/dL (8.4-10.2); Carbon Dioxide 22 mmol/L (22-30); Chloride 116 mmol/L (98-107); Estimated CRCL calculation 23 ml/min; Estimated Glomerular Filt Rate 17; Glucose 315 mg/dL (65-110); Magnesium 2.5 mg/dL (1.6-2.3); Potassium 4.6 mmol/L (3.4-5.0); Sodium 145 mmol/L (137-145)
[2021-06-04 07:00] LABS: Hemoglobin 6.9 g/dL (14.0-18.0)
--- NOTE | 2021-06-04 07:47 | PM.DDS ---
Discharge Summary Date and Time Date of : 06/04/21 Time of : 05:55 Provider Pronounced By: Bird Julien/Ector Jones RN Probable Cause of Probable Cause of : respiratory distress Summary Hospital Course: 06/02/2021 interval history: patient remains clinically stable however he still somnolent and unable to provide detail review of symptom, the patient may have COVID-19 being tested an isolated, will continue to monitor will have a PT OT evaluate the patient and further recommendation to follow. 06/03/2021 interval history: patient remains clinically stable however he still somnolent and unable to provide detail review of symptom, unable to do swallow study as patient is not comprehending, will switch Keppra to IV, will start Lopressor 5 mg PRN IV keep the heart rate below 100 and monitor his BP, the patient may have COVID-19 being tested an isolated, will continue to monitor will have a PT OT evaluate the patient and further recommendation to follow. After patient was suctioned and significant secretions and dry mucus plugged were extracted patient was much more comfortable however in view of patient's overall decline poorly overall functioning and worsening clinical status family was contacted and comfort care measures only were discussed at that time patient was made DNR and daughter and the decided to place the patient on comfort care measures only. Patient at 05:59 on 06/04/2021 Additional Data Confirmation of as documented by pronouncing clinician: Pupillary Reflex, Palpable Pulses, Response to Stimuli, Heart Tones and Breath Sounds Name of Provider Notified: Isael Time Provider Notified: 05:59 Provider Requests Autopsy: No Customer Services Coordinator Notified: Yes Date [facility] Notified of : 06/04/21 Time [facility] Notified of : 06:01
--- NOTE | 2021-06-04 08:25 | PC.NURSE ---
Per Ector with [facility], patient is a candidate for donation. is in agreement with donation. home made aware of [facility] to pickup instead of home. Ector noted with [facility] will pickup within the hour. Security made aware of all changes.
== END 2021-06-04 05:55 | disposition expired | DRG 871 ==
LOC: ANHED 20:28 → ANH3MEDSUR 06-03 11:34 → ANHICU 06-06 13:52
PROVIDERS: Admitting Provider Internal Medicine; Emergency Provider Emergency Medicine; PCP Family Medicine Adolescent Medicine; Visit Provider Family Medicine
DX: A41.9 Sepsis, unspecified organism (principal); E11.10 Type 2 diabetes mellitus with ketoacidosis without coma; G93.41 Metabolic encephalopathy; I69.351 Hemiplegia and hemiparesis following cerebral infarction affecting right dominant side; Z66 Do not resuscitate; Z51.5 Encounter for palliative care; I16.1 Hypertensive emergency; F11.20 Opioid dependence, uncomplicated; N17.9 Acute kidney failure, unspecified; I13.0 Hypertensive heart and chronic kidney disease with heart failure and stage 1 through stage 4 chronic kidney disease, or unspecified chronic kidney disease; Z20.822 Contact with and (suspected) exposure to COVID-19; Z79.4 Long term (current) use of insulin; M19.90 Unspecified osteoarthritis, unspecified site; J45.909 Unspecified asthma, uncomplicated; I25.10 Atherosclerotic heart disease of native coronary artery without angina pectoris; I69.320 Aphasia following cerebral infarction; I69.311 Memory deficit following cerebral infarction; F03.90 Unspecified dementia, unspecified severity, without behavioral disturbance, psychotic disturbance, mood disturbance, and anxiety; F32.A Depression, unspecified; E11.9 Type 2 diabetes mellitus without complications; F41.9 Anxiety disorder, unspecified; K21.9 Gastro-esophageal reflux disease without esophagitis; E78.5 Hyperlipidemia, unspecified; G43.909 Migraine, unspecified, not intractable, without status migrainosus; G47.33 Obstructive sleep apnea (adult) (pediatric); E11.42 Type 2 diabetes mellitus with diabetic polyneuropathy; E11.51 Type 2 diabetes mellitus with diabetic peripheral angiopathy without gangrene; F20.9 Schizophrenia, unspecified; G89.4 Chronic pain syndrome; R13.10 Dysphagia, unspecified; I50.9 Heart failure, unspecified; N18.30 Chronic kidney disease, stage 3 unspecified; E11.22 Type 2 diabetes mellitus with diabetic chronic kidney disease; T40.2X1A Poisoning by other opioids, accidental (unintentional), initial encounter; Y92.002 Bathroom of unspecified non-institutional (private) residence as the place of occurrence of the external cause
CPT/HCPCS: 36415; 36600; 51701; 70450; 71045; 80048; 80053; 80307; 81001; 82140; 82805; 82948; 83605; 83735; 83880; 84484; 85025; 85027; 85610; 85730; 86140; 87040; 87077; 87086; 87186; 93005; 96361; 96374; 99285; A9270; C9803; J0131; J0360; J1170; J1650; J1815; J1953; J1956; J2060; J2270; J2310; J2543; J3370; J3480; J7040; J7120; U0003; U0005